=== PATIENT | male | born 1955 | race Caucasian/White ===

== ENCOUNTER 2018-02-11 12:25 | Observation (INO) | payer BC, SELFPAY ==
[2018-02-11] VITALS (11 sets, daily range): BP systolic 145–198; BP diastolic 89–120; PULSE 73–98; RESP 14–20; TEMP 36.7–37.2; O2SAT 92–98; BMI 27.5
--- NOTE | 2018-02-11 | DI.ECHO.S_ITS ---
[place] [facility]---------+ [facility] +---------+ : : [address] : [place] : : : : [id number] : : : : Phone: [phone]+ Echocardiogram Report + + :Name: DEION CLARK Study Date: 02/12/2018 Height: 69 in : :[facility] Weight: 165 lb: : Gender: Male BSA: 1.9 m2 : :: 1955 Age: 62 yrs : :Reason For Study: CHF : : Performed By: Azra Arrieta : :Referring: VERA WILKES : + + Interpretation Summary The left ventricle is normal in size. The ejection fraction is estimated to be 35-40%. There is moderate global hypokinesis of the left ventricle. There is inferior wall severe hypokinesis. Diastolic parameters suggest a pseudonormalization pattern, consistent with probable elevated filling pressures. There is no LV thrombus. The right ventricle is normal size. The right ventricular systolic function is normal. No significant valvular pathology seen. The IVC is of normal diameter and collapses greater than 50% with a sniff. This suggests a low right atrial pressure of 3 mm Hg. There is a small right-sided pleural effusion. There is a moderate left-sided pleural effusion. Procedure: A two-dimensional transthoracic echocardiogram with color flow and Doppler was performed. The study quality was technically adequate. There is no prior echocardiogram noted for this patient. The heart rate ranged between 70-73 bpm during the study. The patient was in normal sinus rhythm during the exam. Left Ventricle: Left ventricular wall thickness is mildly increased. The left ventricle is normal in size. There is no thrombus. The ejection fraction is estimated to be 35-40%. There is moderate global hypokinesis of the left ventricle. There is inferior wall severe hypokinesis. Diastolic parameters suggest a pseudonormalization pattern, consistent with probable elevated filling pressures. Right Ventricle: The right ventricle is normal size. The right ventricular systolic function is normal. Atria: The left atrium is mildly dilated. Right atrial size is normal. There is no Doppler evidence for an interatrial shunt. Mitral Valve: The mitral valve leaflets appear mildly thickened, but open well. There is mild mitral regurgitation. Aortic Valve: The aortic valve opens well. The aortic valve is slightly calcified. The aortic valve is not well visualized. There is no aortic valve stenosis. There is trace aortic regurgitation. Tricuspid Valve: The tricuspid valve is normal. Pulmonary artery pressures cannot be estimated because of the lack of a measurable TR jet velocity. There is mild tricuspid regurgitation. Pulmonic Valve: The pulmonic valve is not well visualized. Great Vessels: The aortic root is normal size. The ascending aorta is normal in size. The aortic arch is normal in size. The pulmonary artery is not well visualized, but is probably normal size. The IVC is of normal diameter and collapses greater than 50% with a sniff. This suggests a low right atrial pressure of 3 mm Hg. Pericardium/ Pleura There is no pericardial effusion. There is a small right-sided pleural effusion. There is a moderate left-sided pleural effusion. MMode/2D Measurements & Calculations LVIDd: 5.2 cm LVOT diam: 2.3 cm LVIDs: 4.1 cm Ao root diam: 3.7 cm FS: 22.2 % asc Aorta Diam: 3.2 cm EPSS: 0.79 cm Ao Arch Diam (distal): 2.5 cm IVSd: 1.2 cm LVPWd: 1.2 cm LV reilly. diameter/BSA (cm/m^2): 2.8 LV sys. diameter/BSA (cm/m^2): 2.1 LA A2 area: 20.3 cm2 RA long axis: 5.0 cm LA A4 area: 26.9 cm2 RA area: 15.1 cm2 LA length (vol): 6.3 cm RA vol: 38.9 ml LA vol: 74.0 ml RA : 20.5 ml/m2 LA vol index: 38.9 ml/m2 IVC diam: 1.8 cm RVD1 (basal): 2.8 cm LVAd ap4: 35.7 cm2 TAPSE: 1.7 cm LVAs ap4: 27.6 cm2 LVLs ap4: 8.4 cm LVAd ap2: 35.8 cm2 LVLd ap2: 8.9 cm LVAs ap2: 27.0 cm2 LVLs ap2: 8.0 cm Doppler Measurements & Calculations Ao V2 max: 123.8 cm/sec LVOT Max Jeromy: 77.3 cm/sec Ao V2 mean: 94.6 cm/sec LV V1 max P.4 mmHg Ao max P.1 mmHg LV V1 VTI: 15.7 cm Ao mean P.8 mmHg JOSHUA(I,D): 2.6 cm2 Ao V2 VTI: 25.2 cm JOSHUA(V,D): 2.6 cm2 sev ratio: 0.62 JOSHUA indexed to BSA (cm^2/m^2): 1.3 MV E max jeromy: 69.3 cm/sec MV A max jeromy: 55.8 cm/sec MV E/A: 1.2 Med Peak E' Jeromy: 3.4 cm/sec E/E' med: 20.6 Lat Peak E' Jeromy: 4.6 cm/sec E/E' lat: 15.0 E/e' average: 17.8 MV dec time: 0.27 sec Reading Physician:CAMILA
--- NOTE | 2018-02-11 13:31 | ED.EXTPRO ---
HPI - Extremity Problem <PRINCE Baker - Last Filed: 02/11/18 21:27> General Chief complaint: Extremity Problem,Nontraumatic Stated complaint: Feet swollen, SOB, eyesight blurred Time Seen by Provider: 02/11/18 13:18 Source: patient Mode of arrival: ambulatory Limitations: no limitations History of Present Illness HPI Narrative: 62-year-old male that has a history of type 2 diabetes and hypertension that is not well controlled and is a nonsmoker here for complaint of swelling to his bilateral extremities over the past few weeks. he states that he has been working nights more recently and is on his feet frequently while he is at work. he states that being off of his feet does help with the swelling. He also reports that he has had periods of having intermittent chest pain over the same timeframe. He denies any cough. He denies any shortness of breath. He denies any stressors or relievers of his chest pain. He is not taking any of his blood pressure medicine or his type 2 diabetes for the last couple years as cost has been an issue for him. he denies any syncope or presyncope. No nausea vomiting. No other concerns or complaints at this time Related Data Home Medications Medication Instructions Recorded Confirmed Vitamin C Gummies 1 dose PO DAILY 02/11/18 02/11/18 ascorbic [id number] 2 packet PO DAILY 02/11/18 02/11/18 [Emergen-C] Allergies Allergy/AdvReac Type Severity Reaction Status Date / Time No Known Drug Allergies Allergy Verified 02/11/18 12:28 Review of Systems <PRINCE Baker - Last Filed: 02/11/18 21:27> Constitutional Denies chills, Denies fatigue, Denies fever(s), Denies lethargy and Denies weakness Eyes Denies change in vision, Denies eye discharge, Denies irritation and Denies loss of vision ENT Ears, Nose, Mouth, and Throat: Denies change in voice, Denies neck pain and Denies sore throat Cardiovascular Reports chest pain, Denies dyspnea and Denies dyspnea on exertion Respiratory Denies cough, Denies dyspnea, Denies dyspnea on exertion and Denies wheezing Gastrointestinal Gastrointestinal: Denies abdominal pain, Denies change in bowel habits, Denies diarrhea, Denies nausea and Denies vomiting Genitourinary Denies hematuria, Denies flank pain, Denies urinary incontinence and Denies urinary urgency Musculoskeletal Denies neck pain Comments: edema to bilateral lower extremities Integumentary/Breasts Denies pruritus, Denies erythema, Denies rash and Denies wounds Neurologic Denies confusion, Denies loss of vision and Denies weakness Psychiatric Denies anxiety, Denies confusion, Denies depression, Denies homicidal ideation and Denies suicidal ideation Endocrine Denies fatigue and Denies flushing Hematologic/Lymphatic Denies easy bruising Allergic/Immunologic Denies wheezing Exam <PRINCE Baker - Last Filed: 02/11/18 21:27> Initial Vital Signs Initial Vital Signs: Vital Signs Temperature 98.0 F 02/11/18 12:28 Pulse Rate 98 H 02/11/18 12:28 Respiratory Rate 16 02/11/18 12:28 Blood Pressure 198/120 H 02/11/18 12:28 Pulse Oximetry 98 02/11/18 12:28 Const General: cooperative and well developed Nutritional Appearance: well nourished Orientation: alert, awake, oriented x3 and not confused HENMO Mouth: oral mucosae normal, oropharynx normal and moist mucous membranes Eyes Conjunctivae: conjunctivae normal Sclera: sclerae normal Pupils: PERRL EOM: EOM intact bilaterally Chest Chest: normal inspection of the chest Resp Effort & Inspection: normal respiratory effort, able to speak in complete sentences, no respiratory distress and no use of accessory muscles Auscultation: clear to auscultation bilaterally, no rales, no rhonchi and no wheezes Cardio Rate: regular rate Rhythm: regular rhythm Heart Sounds: no click, no gallops, no murmurs and no rubs GI Inspection: non-distended Palpation: soft, no hepatosplenomegaly, No guarding, No pulsatile mass and No tender Auscultation: normal bowel sounds Skin General: no rashes or lesions noted, No jaundice and No petechiae Neuro General: alert, oriented x3, gait normal and no focal motor deficits Speech: speech normal Extrem Right lower extremity: edema Details: 1+ Left lower extremity: edema Details: 1+ <Samantha Oliver DO - Last Filed: 02/12/18 07:20> Initial Vital Signs Initial Vital Signs: Vital Signs Temperature 98.0 F 02/11/18 12:28 Pulse Rate 98 H 02/11/18 12:28 Respiratory Rate 16 11/29/18 12:28 Blood Pressure 198/120 H 02/11/18 12:28 Pulse Oximetry 98 02/11/18 12:28 Course <PRINCE Baker - Last Filed: 02/11/18 21:27> Orders Ordered: Acetaminophen (Tylenol) 650 mg PO Q6HR PRN PRN Reason: As Needed for Fever/Mild Pain Hydrocodone Bitart/Acetaminophen ([place] 5/325) 1 tab PO Q4HR PRN PRN Reason: Pain, Moderate (4-6) Dextrose (D50w) 25 gm IV PRN PRN; Protocol PRN Reason: Hypoglycemia Docusate Sodium (Colace) 100 mg PO BID [facility] Last Admin: 02/11/18 20:45 Dose: 100 mg Enoxaparin Sodium (Lovenox) 40 mg SUBCUT DAILY ABA Furosemide (Lasix) 40 mg IV Q12H [facility] Last Admin: 02/11/18 20:46 Dose: 40 mg Hydromorphone HCl (Dilaudid) 0.5 mg IV Q6HR PRN PRN Reason: Pain, Moderate (4-6) Sodium Chloride (Normal Saline 0.9%) 250 mls @ 21 mls/hr IV Q24H PRN PRN Reason: Flush Last Admin: 02/11/18 20:44 Dose: 21 mls/hr Insulin Aspart (Novolog Flexpen) 0 unit SUBCUT ACHS [facility]; Protocol Last Admin: 02/11/18 20:53 Dose: 2 unit Admin: 02/11/18 17:59 Dose: 1 unit Insulin Glargine (Lantus Solostar (Pen)) 10 unit SUBCUT BEDTIME [facility] Last Admin: 02/11/18 20:53 Dose: 10 unit Metoprolol Succinate (Toprol Xl) 50 mg PO BID [facility] Last Admin: 02/11/18 20:45 Dose: 50 mg Ondansetron HCl (Zofran) 4 mg IV Q8HR PRN PRN Reason: Nausea And Vomiting Sodium Chloride (Normal Saline 0.9% Flush) 10 ml IV PRN PRN PRN Reason: Flush Sodium Chloride (Normal Saline 0.9% Flush) 10 ml IV BID [facility] Last Admin: 02/11/18 20:45 Dose: 10 ml Discontinued Medications Furosemide (Lasix) 40 mg IV NOW ONE Stop: 02/11/18 14:34 Last Admin: 02/11/18 14:58 Dose: 40 mg Metoprolol Tartrate (Lopressor) 25 mg PO NOW ONE Stop: 02/11/18 13:52 Last Admin: 02/11/18 14:25 Dose: 25 mg Vital Signs - 8 hr 02/11/18 23:35 02/11/18 23:42 02/12/18 03:00 Temperature 98.3 F 98.2 F Pulse Rate 74 73 Respiratory Rate 20 22 Blood Pressure 148/96 H 155/99 H Pulse Oximetry 92 92 98 <Samantha Oliver, - Last Filed: 02/12/18 07:20> Orders Ordered: Acetaminophen (Tylenol) 650 mg PO Q6HR PRN PRN Reason: As Needed for Fever/Mild Pain Hydrocodone Bitart/Acetaminophen ([place] 5/325) 1 tab PO Q4HR PRN PRN Reason: Pain, Moderate (4-6) Dextrose (D50w) 25 gm IV PRN PRN; Protocol PRN Reason: Hypoglycemia Docusate Sodium (Colace) 100 mg PO BID [facility] Last Admin: 02/11/18 20:45 Dose: 100 mg Enoxaparin Sodium (Lovenox) 40 mg SUBCUT DAILY [facility] Furosemide (Lasix) 40 mg IV Q12H [facility] Last Admin: 02/11/18 20:46 Dose: 40 mg Hydromorphone HCl (Dilaudid) 0.5 mg IV Q6HR PRN PRN Reason: Pain, Moderate (4-6) Sodium Chloride (Normal Saline 0.9%) 250 mls @ 21 mls/hr IV Q24H PRN PRN Reason: Flush Last Admin: 02/11/18 20:44 Dose: 21 mls/hr Insulin Aspart (Novolog Flexpen) 0 unit SUBCUT ACHS [facility]; Protocol Last Admin: 02/11/18 20:53 Dose: 2 unit Admin: 02/11/18 17:59 Dose: 1 unit Insulin Glargine (Lantus Solostar (Pen)) 10 unit SUBCUT BEDTIME [facility] Last Admin: 02/11/18 20:53 Dose: 10 unit Metoprolol Succinate (Toprol Xl) 50 mg PO BID [facility] Last Admin: 02/11/18 20:45 Dose: 50 mg Ondansetron HCl (Zofran) 4 mg IV Q8HR PRN PRN Reason: Nausea And Vomiting Sodium Chloride (Normal Saline 0.9% Flush) 10 ml IV PRN PRN PRN Reason: Flush Sodium Chloride (Normal Saline 0.9% Flush) 10 ml IV BID ABA Last Admin: 02/11/18 20:45 Dose: 10 ml Discontinued Medications Furosemide (Lasix) 40 mg IV NOW ONE Stop: 02/11/18 14:34 Last Admin: 02/11/18 14:58 Dose: 40 mg Metoprolol Tartrate (Lopressor) 25 mg PO NOW ONE Stop: 02/11/18 13:52 Last Admin: 02/11/18 14:25 Dose: 25 mg Vital Signs - 8 hr 02/11/18 23:35 02/11/18 23:42 02/12/18 03:00 Temperature 98.3 F 98.2 F Pulse Rate 74 73 Respiratory Rate 20 22 Blood Pressure 148/96 H 155/99 H Pulse Oximetry 92 92 98 MDM - Extremity (Nontraumatic) <PRINCE Baker - Last Filed: 02/11/18 21:27> Lab Data Result diagrams: 02/11/18 17:37 02/11/18 17:37 Lab Results 02/11/18 02/11/18 02/11/18 Range/Units 13:20 13:20 15:40 WBC 5.8 (4.5-11.0) X10^3/uL RBC 4.15 L (4.5-5.9) X10^6/uL Hgb 11.6 L (13.5-17.5) g/dL Hct 34.1 L (41-53) % MCV 82.2 (80-100) fL MCH 28.0 (26-34) PG MCHC 34.1 (30-36) % RDW 16.4 H (11.6-14.8) % Plt Count 218 (150-400) X10^3/uL Neut % (Auto) 63.3 (50-75) % Lymph % (Auto) 23.7 L (25-40) % [place] % (Auto) 10.4 (3-14) % Eos % (Auto) 1.6 L (2-4) % Baso % (Auto) 1.0 (0-2) % Neut # (Auto) 3700 (4615-8330) /uL Sodium 137 (137-145) mmol/L Potassium 3.6 (3.4-5.1) mmol/L Chloride 102 (98-107) mmol/L Carbon Dioxide 24 (22-32) mmol/L BUN 20 (9-20) mg/dL Creatinine 0.80 (0.66-1.25) mg/dL Estimated GFR > 60.0 (>60) mL/min BUN/Creatinine Ratio 25.0 H (6-22) Glucose 208 H (80-110) mg/dL Hemoglobin A1c (4.0-6.0) % Calcium 8.6 (8.4-10.2) mg/dL Total Bilirubin 0.4 (0.2-1.3) mg/dL AST 77 H (17-59) IU/L ALT 65 (21-72) IU/L Alkaline Phosphatase 110 (38-126) U/L Total Creatine Kinase 117 (55-170) U/L CK-MB (CK-2) 2.37 (<2.37) ng/mL CK-MB (CK-2) Rel Index 2.0 (1.5-5.0) % Troponin I 0.061 H (0.01-0.034) ng/mL B-Natriuretic Peptide 800.0 H (<100) Total Protein 6.6 (6.3-8.2) g/dL Albumin 3.2 L (3.5-5.0) g/dL Globulin 3.4 (1.7-4.1) g/dL Albumin/Globulin Ratio 0.9 L (1.0-2.8) Triglycerides (35-150) mg/dL Cholesterol (140-199) mg/dL LDL Cholesterol, Calc (<100) mg/dL HDL Cholesterol (40-60) mg/dL Lipase 223 (23-300) U/L Urine RBC 1-5/hpf (0-5/HPF) Urine WBC 0-1/hpf (0-5/HPF) Ur Squamous Epith Cells 0-1 /hpf Urine Bacteria None seen (None) Ur Culture Indicated? Cult not indicated Micro UA Comment Not Reportable 02/11/18 02/11/18 02/11/18 Range/Units 17:37 17:37 17:37 WBC 7.5 (4.5-11.0) X10^3/uL RBC 4.26 L (4.5-5.9) X10^6/uL Hgb 11.6 L (13.5-17.5) g/dL Hct 35.2 L (41-53) % MCV 82.7 (80-100) fL MCH 27.3 (26-34) PG MCHC 33.1 (30-36) % RDW 16.4 H (11.6-14.8) % Plt Count 215 (150-400) X10^3/uL Neut % (Auto) 63.7 (50-75) % Lymph % (Auto) 23.3 L (25-40) % [place] % (Auto) 10.8 (3-14) % Eos % (Auto) 1.3 L (2-4) % Baso % (Auto) 0.9 (0-2) % Neut # (Auto) 4800 (9600-5294) /uL Sodium 136 L (137-145) mmol/L Potassium 3.6 (3.4-5.1) mmol/L Chloride 102 (98-107) mmol/L Carbon Dioxide 24 (22-32) mmol/L BUN 19 (9-20) mg/dL Creatinine 0.80 (0.66-1.25) mg/dL Estimated GFR > 60.0 (>60) mL/min BUN/Creatinine Ratio 23.8 H (6-22) Glucose 175 H (80-110) mg/dL Hemoglobin A1c (4.0-6.0) % Calcium 8.5 (8.4-10.2) mg/dL Total Bilirubin (0.2-1.3) mg/dL AST (17-59) IU/L ALT (21-72) IU/L Alkaline Phosphatase (38-126) U/L Total Creatine Kinase (55-170) U/L CK-MB (CK-2) (<2.37) ng/mL CK-MB (CK-2) Rel Index (1.5-5.0) % Troponin I (0.01-0.034) ng/mL B-Natriuretic Peptide (<100) Total Protein (6.3-8.2) g/dL Albumin (3.5-5.0) g/dL Globulin (1.7-4.1) g/dL Albumin/Globulin Ratio (1.0-2.8) Triglycerides 145 (35-150) mg/dL Cholesterol 198 (140-199) mg/dL LDL Cholesterol, Calc 138 H (<100) mg/dL HDL Cholesterol 31 L (40-60) mg/dL Lipase (23-300) U/L Urine RBC (0-5/HPF) Urine WBC (0-5/HPF) Ur Squamous Epith Cells Urine Bacteria (None) Ur Culture Indicated? Micro UA Comment 02/11/18 02/11/18 Range/Units 17:37 17:37 WBC (4.5-11.0) X10^3/uL RBC (4.5-5.9) X10^6/uL Hgb (13.5-17.5) g/dL Hct (41-53) % MCV (80-100) fL MCH (26-34) PG MCHC (30-36) % RDW (11.6-14.8) % Plt Count (150-400) X10^3/uL Neut % (Auto) (50-75) % Lymph % (Auto) (25-40) % [place] % (Auto) (3-14) % Eos % (Auto) (2-4) % Baso % (Auto) (0-2) % Neut # (Auto) (0548-5283) /uL Sodium (137-145) mmol/L Potassium (3.4-5.1) mmol/L Chloride (98-107) mmol/L Carbon Dioxide (22-32) mmol/L BUN (9-20) mg/dL Creatinine (0.66-1.25) mg/dL Estimated GFR (>60) mL/min BUN/Creatinine Ratio (6-22) Glucose (80-110) mg/dL Hemoglobin A1c 10.6 H (4.0-6.0) % Calcium (8.4-10.2) mg/dL Total Bilirubin (0.2-1.3) mg/dL AST (17-59) IU/L ALT (21-72) IU/L Alkaline Phosphatase (38-126) U/L Total Creatine Kinase 112 (55-170) U/L CK-MB (CK-2) 2.50 H (<2.37) ng/mL CK-MB (CK-2) Rel Index 2.2 (1.5-5.0) % Troponin I 0.075 H (0.01-0.034) ng/mL B-Natriuretic Peptide (<100) Total Protein (6.3-8.2) g/dL Albumin (3.5-5.0) g/dL Globulin (1.7-4.1) g/dL Albumin/Globulin Ratio (1.0-2.8) Triglycerides (35-150) mg/dL Cholesterol (140-199) mg/dL LDL Cholesterol, Calc (<100) mg/dL HDL Cholesterol (40-60) mg/dL Lipase (23-300) U/L Urine RBC (0-5/HPF) Urine WBC (0-5/HPF) Ur Squamous Epith Cells Urine Bacteria (None) Ur Culture Indicated? Micro UA Comment Point of Care Testing Glucose POC 118 Urine Dip Bedside Urine Glucose 500 mg/dl Bedside Urine Bilirubin - Negative Bedside Urine Ketone - Negative Urine Specific [place] 1.020 Bedside Urine Occult Blood + Bedside Urine pH 6.0 Bedside Urine Protein ++ 100 Bedside Urine Urobilinogen - Negative Bedside Urine Nitrite - Negative Bedside Urine Leukocytes - Negative Esterase Imaging Data CT scan - head: Radiologist's impression: [place] [address] CT Scan Report Signed Patient: Jose Lewis JMR#: [id number] : 5Acct:[id number] Age/Sex: 62 / MDate of Service: 02/11/18 Loc: ED Accession Number: [id number] Procedure: CT head/brain wo con Ordering Provider: Dwain Clement PROCEDURE: CT HEAD/BRAIN WO CON INDICATIONS: left-sided headache with elevated blood pressure TECHNIQUE: Noncontrast 4.5 mm thick angled axial sections acquired from the foramen magnum to the vertex, with coronal and sagittal reformats. For radiation dose reduction, the following was used: automated exposure control, adjustment of mA and/or kV according to patient size. COMPARISON: None. FINDINGS: Image quality: Excellent. CSF spaces: Basal cisterns are patent. No extra-axial fluid collections. The ventricles are symmetric in size and shape. Brain: No intracranial bleeds or masses. There is cerebral volume loss for age, with resultant ventricular and sulcal prominence. There are periventricular and deep white matter chronic small vessel ischemic changes. There is intracranial internal carotid artery and vertebral artery atherosclerosis. Skull and face: Calvarium and visualized facial bones appear intact, without suspicious lesions. Sinuses: Visualized sinuses and mastoids are clear. IMPRESSION: No acute intracranial disease process. Dictated by: Cherelle Fiore MD, PhD on 02/11/2018 at 14:09 Approved by: Cherelle Fiore MD, PhD on 02/11/2018 at 14:11 Chest x-ray: Radiologist's impression: [address] [address] XRay Report Signed Patient: Jose Lewis JMR#: [id number] : 5Acct:[id number] Age/Sex: 62 / MDate of Service: 02/11/18 Loc: ED Accession Number: [id number] Procedure: XR chest 1V Ordering Provider: Dwain Clement PROCEDURE: XR CHEST 1V INDICATIONS: Swelling to bilateral lower extremities and shortness of b TECHNIQUE: One view of the chest was acquired. COMPARISON: None. FINDINGS: Surgical changes and devices: None. Lungs and pleura: Blunting of the costophrenic angles is identified bilaterally (left greater than right). Interstitial prominence within the bilateral lung bases is also noted. The pulmonary vascular markings may be increased. Mediastinum: Mediastinal contours appear normal. Heart size appears to be normal. Bones and chest wall: No suspicious bony lesions. Overlying soft tissues appear unremarkable. IMPRESSION: 1. Small bilateral pleural effusions and associated atelectasis. Superimposed basilar pneumonia is difficult to exclude. 2. Possible mild vascular congestion. Dictated by: Gennaro Malcolm M.D. on 02/11/2018 at 13:34 Approved by: Gennaro Malcolm M.D. on 02/11/2018 at 13:35 ECG Data Interpretation: EKG shows normal sinus rhythm with no ST elevation or depression. No ectopy. Pr interval of 150. QRS duration 114. QTC of 440 MDM Narrative Medical decision making narrative: due to elevated blood pressure and complaint of headache CT of the head was obtained was negative for any acute findings. EKG shows sinus rhythm with no ST elevation or depression. No ectopy. Chest x-ray shows signs of mild pulmonary congestion. he was given 25 mg of metoprolol which lowered his blood pressure to 169/109. CBC shows mild anemia otherwise is unremarkable. CMP shows a glucose at 208, of you min at 3.2 and mildly elevated AST. BNP was elevated at 800. and troponin was elevated at 0.061 is indeterminate. he was given 40 mg Lasix IV in the emergency room. Discussed case with Dr. Sylvester hospitalist about admission for observation which she accepted patient. Patient admitted to inpatient [facility]. <Samantha Oliver, DO - Last Filed: 02/12/18 07:20> Lab Data Lab Results 02/11/18 02/11/18 02/11/18 Range/Units 13:20 13:20 15:40 WBC 5.8 (4.5-11.0) X10^3/uL RBC 4.15 L (4.5-5.9) X10^6/uL Hgb 11.6 L (13.5-17.5) g/dL Hct 34.1 L (41-53) % MCV 82.2 (80-100) fL MCH 28.0 (26-34) PG MCHC 34.1 (30-36) % RDW 16.4 H (11.6-14.8) % Plt Count 218 (150-400) X10^3/uL Neut % (Auto) 63.3 (50-75) % Lymph % (Auto) 23.7 L (25-40) % [place] % (Auto) 10.4 (3-14) % Eos % (Auto) 1.6 L (2-4) % Baso % (Auto) 1.0 (0-2) % Neut # (Auto) 3700 (1257-9724) /uL Sodium 137 (137-145) mmol/L Potassium 3.6 (3.4-5.1) mmol/L Chloride 102 (98-107) mmol/L Carbon Dioxide 24 (22-32) mmol/L BUN 20 (9-20) mg/dL Creatinine 0.80 (0.66-1.25) mg/dL Estimated GFR > 60.0 (>60) mL/min BUN/Creatinine Ratio 25.0 H (6-22) Glucose 208 H (80-110) mg/dL Hemoglobin A1c (4.0-6.0) % Calcium 8.6 (8.4-10.2) mg/dL Total Bilirubin 0.4 (0.2-1.3) mg/dL AST 77 H (17-59) IU/L ALT 65 (21-72) IU/L Alkaline Phosphatase 110 (38-126) U/L Total Creatine Kinase 117 (55-170) U/L CK-MB (CK-2) 2.37 (<2.37) ng/mL CK-MB (CK-2) Rel Index 2.0 (1.5-5.0) % Troponin I 0.061 H (0.01-0.034) ng/mL B-Natriuretic Peptide 800.0 H (<100) Total Protein 6.6 (6.3-8.2) g/dL Albumin 3.2 L (3.5-5.0) g/dL Globulin 3.4 (1.7-4.1) g/dL Albumin/Globulin Ratio 0.9 L (1.0-2.8) Triglycerides (35-150) mg/dL Cholesterol (140-199) mg/dL LDL Cholesterol, Calc (<100) mg/dL HDL Cholesterol (40-60) mg/dL Lipase 223 (23-300) U/L Urine RBC 1-5/hpf (0-5/HPF) Urine WBC 0-1/hpf (0-5/HPF) Ur Squamous Epith Cells 0-1 /hpf Urine Bacteria None seen (None) Ur Culture Indicated? Cult not indicated Micro UA Comment Not Reportable 02/11/18 02/11/18 02/11/18 Range/Units 17:37 17:37 17:37 WBC 7.5 (4.5-11.0) X10^3/uL RBC 4.26 L (4.5-5.9) X10^6/uL Hgb 11.6 L (13.5-17.5) g/dL Hct 35.2 L (41-53) % MCV 82.7 (80-100) fL MCH 27.3 (26-34) PG MCHC 33.1 (30-36) % RDW 16.4 H (11.6-14.8) % Plt Count 215 (150-400) X10^3/uL Neut % (Auto) 63.7 (50-75) % Lymph % (Auto) 23.3 L (25-40) % [place] % (Auto) 10.8 (3-14) % Eos % (Auto) 1.3 L (2-4) % Baso % (Auto) 0.9 (0-2) % Neut # (Auto) 4800 (6234-7076) /uL Sodium 136 L (137-145) mmol/L Potassium 3.6 (3.4-5.1) mmol/L Chloride 102 (98-107) mmol/L Carbon Dioxide 24 (22-32) mmol/L BUN 19 (9-20) mg/dL Creatinine 0.80 (0.66-1.25) mg/dL Estimated GFR > 60.0 (>60) mL/min BUN/Creatinine Ratio 23.8 H (6-22) Glucose 175 H (80-110) mg/dL Hemoglobin A1c (4.0-6.0) % Calcium 8.5 (8.4-10.2) mg/dL Total Bilirubin (0.2-1.3) mg/dL AST (17-59) IU/L ALT (21-72) IU/L Alkaline Phosphatase (38-126) U/L Total Creatine Kinase (55-170) U/L CK-MB (CK-2) (<2.37) ng/mL CK-MB (CK-2) Rel Index (1.5-5.0) % Troponin I (0.01-0.034) ng/mL B-Natriuretic Peptide (<100) Total Protein (6.3-8.2) g/dL Albumin (3.5-5.0) g/dL Globulin (1.7-4.1) g/dL Albumin/Globulin Ratio (1.0-2.8) Triglycerides 145 (35-150) mg/dL Cholesterol 198 (140-199) mg/dL LDL Cholesterol, Calc 138 H (<100) mg/dL HDL Cholesterol 31 L (40-60) mg/dL Lipase (23-300) U/L Urine RBC (0-5/HPF) Urine WBC (0-5/HPF) Ur Squamous Epith Cells Urine Bacteria (None) Ur Culture Indicated? Micro UA Comment 02/11/18 02/11/18 Range/Units 17:37 17:37 WBC (4.5-11.0) X10^3/uL RBC (4.5-5.9) X10^6/uL Hgb (13.5-17.5) g/dL Hct (41-53) % MCV (80-100) fL MCH (26-34) PG MCHC (30-36) % RDW (11.6-14.8) % Plt Count (150-400) X10^3/uL Neut % (Auto) (50-75) % Lymph % (Auto) (25-40) % [place] % (Auto) (3-14) % Eos % (Auto) (2-4) % Baso % (Auto) (0-2) % Neut # (Auto) (8590-6891) /uL Sodium (137-145) mmol/L Potassium (3.4-5.1) mmol/L Chloride (98-107) mmol/L Carbon Dioxide (22-32) mmol/L BUN (9-20) mg/dL Creatinine (0.66-1.25) mg/dL Estimated GFR (>60) mL/min BUN/Creatinine Ratio (6-22) Glucose (80-110) mg/dL Hemoglobin A1c 10.6 H (4.0-6.0) % Calcium (8.4-10.2) mg/dL Total Bilirubin (0.2-1.3) mg/dL AST (17-59) IU/L ALT (21-72) IU/L Alkaline Phosphatase (38-126) U/L Total Creatine Kinase 112 (55-170) U/L CK-MB (CK-2) 2.50 H (<2.37) ng/mL CK-MB (CK-2) Rel Index 2.2 (1.5-5.0) % Troponin I 0.075 H (0.01-0.034) ng/mL B-Natriuretic Peptide (<100) Total Protein (6.3-8.2) g/dL Albumin (3.5-5.0) g/dL Globulin (1.7-4.1) g/dL Albumin/Globulin Ratio (1.0-2.8) Triglycerides (35-150) mg/dL Cholesterol (140-199) mg/dL LDL Cholesterol, Calc (<100) mg/dL HDL Cholesterol (40-60) mg/dL Lipase (23-300) U/L Urine RBC (0-5/HPF) Urine WBC (0-5/HPF) Ur Squamous Epith Cells Urine Bacteria (None) Ur Culture Indicated? Micro UA Comment Point of Care Testing Glucose POC 118 Urine Dip Bedside Urine Glucose 500 mg/dl Bedside Urine Bilirubin - Negative Bedside Urine Ketone - Negative Urine Specific [place] 1.020 Bedside Urine Occult Blood + Bedside Urine pH 6.0 Bedside Urine Protein ++ 100 Bedside Urine Urobilinogen - Negative Bedside Urine Nitrite - Negative Bedside Urine Leukocytes - Negative Esterase Discharge Plan Departure Patient Disposition: Admitted As Inpatient Clinical Impression: CHF (congestive heart failure) Discharge Date/Time: 02/11/18 16:57 Interventions: ED Discharge Assessment Last Done: 02/11/18 16:46 Admit Date/Time: 02/11/18 15:40 Admit Provider: Penny Sylvester <Samantha Oliver DO - Last Filed: 02/12/18 07:20> Cosign ED Attending Cosignature Attestation: I was immediately available in the department for consultation. This documentation has been reviewed and I agree with assessment and plan. Supervised by Samantha Oliver DO
--- NOTE | 2018-02-11 13:44 | DI.RAD.S_ITS ---
PROCEDURE: XR CHEST 1V INDICATIONS: Swelling to bilateral lower extremities and shortness of b TECHNIQUE: One view of the chest was acquired. COMPARISON: None. FINDINGS: Surgical changes and devices: None. Lungs and pleura: Blunting of the costophrenic angles is identified bilaterally (left greater than right). Interstitial prominence within the bilateral lung bases is also noted. The pulmonary vascular markings may be increased. Mediastinum: Mediastinal contours appear normal. Heart size appears to be normal. Bones and chest wall: No suspicious bony lesions. Overlying soft tissues appear unremarkable. IMPRESSION: 1. Small bilateral pleural effusions and associated atelectasis. Superimposed basilar pneumonia is difficult to exclude. 2. Possible mild vascular congestion. Dictated by: Gennaro Malcolm M.D. on 02/11/2018 at 13:34 Approved by: Gennaro Malcolm M.D. on 02/11/2018 at 13:35
--- NOTE | 2018-02-11 13:44 | DI.CT.S_ITS ---
PROCEDURE: CT HEAD/BRAIN WO CON INDICATIONS: left-sided headache with elevated blood pressure TECHNIQUE: Noncontrast 4.5 mm thick angled axial sections acquired from the foramen magnum to the vertex, with coronal and sagittal reformats. For radiation dose reduction, the following was used: automated exposure control, adjustment of mA and/or kV according to patient size. COMPARISON: None. FINDINGS: Image quality: Excellent. CSF spaces: Basal cisterns are patent. No extra-axial fluid collections. The ventricles are symmetric in size and shape. Brain: No intracranial bleeds or masses. There is cerebral volume loss for age, with resultant ventricular and sulcal prominence. There are periventricular and deep white matter chronic small vessel ischemic changes. There is intracranial internal carotid artery and vertebral artery atherosclerosis. Skull and face: Calvarium and visualized facial bones appear intact, without suspicious lesions. Sinuses: Visualized sinuses and mastoids are clear. IMPRESSION: No acute intracranial disease process. Dictated by: Cherelle Fiore MD, PhD on 02/11/2018 at 14:09 Approved by: Cherelle Fiore MD, PhD on 02/11/2018 at 14:11
--- NOTE | 2018-02-11 13:48 | PC.NURSE ---
pt reports at times he feels SOB, eyes blurry at times. reports that he doesn't take his diabetic medication due to the cost of it. reports he does not check his blood sugar.
[2018-02-11 13:53] LABS: Add Manual Diff / Slide Review NO; Eosinophils Percent Auto 1.6 % (2-4); Hematocrit 34.1 % (41-53); Hemoglobin 11.6 g/dL (13.5-17.5); Lymphocytes Percent Auto 23.7 % (25-40); Mean Corpuscular HGB Conc 34.1 % (30-36); Mean Corpuscular Volume 82.2 fL (80-100); Monocytes Percent Auto 10.4 % (3-14); Neutrophils Absolute Auto 3700 /uL (3000-5900); Neutrophils Percent Auto 63.3 % (50-75); Platelet Count 218 X10^3/uL (150-400); Red Blood Cell Count 4.15 X10^6/uL (4.5-5.9); Red Cell Distribution Width 16.4 % (11.6-14.8); White Blood Cell Count 5.8 X10^3/uL (4.5-11.0)
[2018-02-11 14:00] LABS: Alanine Aminotransferase 65 IU/L (21-72); Albumin 3.2 g/dL (3.5-5.0); Albumin Globulin Ratio 0.9 (1.0-2.8); Alkaline Phosphatase 110 U/L (38-126); Aspartate Aminotransferase 77 IU/L (17-59); Bilirubin Total 0.4 mg/dL (0.2-1.3); Blood Urea Nitrogen 20 mg/dL (9-20); Calcium 8.6 mg/dL (8.4-10.2); Carbon Dioxide 24 mmol/L (22-32); Chloride 102 mmol/L (98-107); Creatine Kinase 117 U/L (55-170); Estimated Glomerular Filt Rate > 60.0 mL/min (>60); Globulin 3.4 g/dL (1.7-4.1); Glucose 208 mg/dL (80-110); HEMOLYSIS < 15 (0-50); Lipase 223 U/L (23-300); Potassium 3.6 mmol/L (3.4-5.1); Sodium 137 mmol/L (137-145); Total Protein 6.6 g/dL (6.3-8.2)
[2018-02-11 14:11] LABS: Troponin I 0.061 ng/mL (0.01-0.034)
[2018-02-11 14:15] LABS: Creatine Kinase MB 2.37 ng/mL (<2.37)
[2018-02-11] MEDS: METOPROLOL IR 25 MG TABLET PO (14:25)
[2018-02-11] MEDS: FUROSEMIDE 40 MG/4 ML VIAL IV ×2 (14:58→20:46)
--- NOTE | 2018-02-11 15:30 | ED_ITS ---
HPI - Extremity Problem <PRINCE Baker - Last Filed: 02/11/18 21:27> General Chief complaint: Extremity Problem,Nontraumatic Stated complaint: Feet swollen, SOB, eyesight blurred Time Seen by Provider: 02/11/18 13:18 Source: patient Mode of arrival: ambulatory Limitations: no limitations History of Present Illness HPI Narrative: 62-year-old male that has a history of type 2 diabetes and hypertension that is not well controlled and is a nonsmoker here for complaint of swelling to his bilateral extremities over the past few weeks. he states that he has been working nights more recently and is on his feet frequently while he is at work. he states that being off of his feet does help with the swelling. He also reports that he has had periods of having intermittent chest pain over the same timeframe. He denies any cough. He denies any shortness of breath. He denies any stressors or relievers of his chest pain. He is not taking any of his blood pressure medicine or his type 2 diabetes for the last couple years as cost has been an issue for him. he denies any syncope or presyncope. No nausea vomiting. No other concerns or complaints at this time Related Data Home Medications Medication Instructions Recorded Confirmed Vitamin C Gummies 1 dose PO DAILY 02/11/18 02/11/18 ascorbic [id number] 2 packet PO DAILY 02/11/18 02/11/18 [Emergen-C] Allergies Allergy/AdvReac Type Severity Reaction Status Date / Time No Known Drug Allergies Allergy Verified 02/11/18 12:28 Review of Systems <PRINCE Baker - Last Filed: 02/11/18 21:27> Constitutional Denies chills, Denies fatigue, Denies fever(s), Denies lethargy and Denies weakness Eyes Denies change in vision, Denies eye discharge, Denies irritation and Denies loss of vision ENT Ears, Nose, Mouth, and Throat: Denies change in voice, Denies neck pain and Denies sore throat Cardiovascular Reports chest pain, Denies dyspnea and Denies dyspnea on exertion Respiratory Denies cough, Denies dyspnea, Denies dyspnea on exertion and Denies wheezing Gastrointestinal Gastrointestinal: Denies abdominal pain, Denies change in bowel habits, Denies diarrhea, Denies nausea and Denies vomiting Genitourinary Denies hematuria, Denies flank pain, Denies urinary incontinence and Denies urinary urgency Musculoskeletal Denies neck pain Comments: edema to bilateral lower extremities Integumentary/Breasts Denies pruritus, Denies erythema, Denies rash and Denies wounds Neurologic Denies confusion, Denies loss of vision and Denies weakness Psychiatric Denies anxiety, Denies confusion, Denies depression, Denies homicidal ideation and Denies suicidal ideation Endocrine Denies fatigue and Denies flushing Hematologic/Lymphatic Denies easy bruising Allergic/Immunologic Denies wheezing Exam <PRINCE Baker - Last Filed: 02/11/18 21:27> Initial Vital Signs Initial Vital Signs: Vital Signs Temperature 98.0 F 02/11/18 12:28 Pulse Rate 98 H 02/11/18 12:28 Respiratory Rate 16 02/11/18 12:28 Blood Pressure 198/120 H 02/11/18 12:28 Pulse Oximetry 98 02/11/18 12:28 Const General: cooperative and well developed Nutritional Appearance: well nourished Orientation: alert, awake, oriented x3 and not confused HENMA Mouth: oral mucosae normal, oropharynx normal and moist mucous membranes Eyes Conjunctivae: conjunctivae normal Sclera: sclerae normal Pupils: PERRL EOM: EOM intact bilaterally Chest Chest: normal inspection of the chest Resp Effort & Inspection: normal respiratory effort, able to speak in complete sentences, no respiratory distress and no use of accessory muscles Auscultation: clear to auscultation bilaterally, no rales, no rhonchi and no wheezes Cardio Rate: regular rate Rhythm: regular rhythm Heart Sounds: no click, no gallops, no murmurs and no rubs GI Inspection: non-distended Palpation: soft, no hepatosplenomegaly, No guarding, No pulsatile mass and No tender Auscultation: normal bowel sounds Skin General: no rashes or lesions noted, No jaundice and No petechiae Neuro General: alert, oriented x3, gait normal and no focal motor deficits Speech: speech normal Extrem Right lower extremity: edema Details: 1+ Left lower extremity: edema Details: 1+ <Samantha Oliver DO - Last Filed: 02/12/18 07:20> Initial Vital Signs Initial Vital Signs: Vital Signs Temperature 98.0 F 02/11/18 12:28 Pulse Rate 98 H 02/11/18 12:28 Respiratory Rate 16 11/29/18 12:28 Blood Pressure 198/120 H 02/11/18 12:28 Pulse Oximetry 98 02/11/18 12:28 Course <PRINCE Baker - Last Filed: 02/11/18 21:27> Orders Ordered: Acetaminophen (Tylenol) 650 mg PO Q6HR PRN PRN Reason: As Needed for Fever/Mild Pain Hydrocodone Bitart/Acetaminophen ([place] 5/325) 1 tab PO Q4HR PRN PRN Reason: Pain, Moderate (4-6) Dextrose (D50w) 25 gm IV PRN PRN; Protocol PRN Reason: Hypoglycemia Docusate Sodium (Colace) 100 mg PO BID [facility] Last Admin: 02/11/18 20:45 Dose: 100 mg Enoxaparin Sodium (Lovenox) 40 mg SUBCUT DAILY [facility] Furosemide (Lasix) 40 mg IV Q12H [facility] Last Admin: 02/11/18 20:46 Dose: 40 mg Hydromorphone HCl (Dilaudid) 0.5 mg IV Q6HR PRN PRN Reason: Pain, Moderate (4-6) Sodium Chloride (Normal Saline 0.9%) 250 mls @ 21 mls/hr IV Q24H PRN PRN Reason: Flush Last Admin: 02/11/18 20:44 Dose: 21 mls/hr Insulin Aspart (Novolog Flexpen) 0 unit SUBCUT ACHS [facility]; Protocol Last Admin: 02/11/18 20:53 Dose: 2 unit Admin: 02/11/18 17:59 Dose: 1 unit Insulin Glargine (Lantus Solostar (Pen)) 10 unit SUBCUT BEDTIME [facility] Last Admin: 02/11/18 20:53 Dose: 10 unit Metoprolol Succinate (Toprol Xl) 50 mg PO BID [facility] Last Admin: 02/11/18 20:45 Dose: 50 mg Ondansetron HCl (Zofran) 4 mg IV Q8HR PRN PRN Reason: Nausea And Vomiting Sodium Chloride (Normal Saline 0.9% Flush) 10 ml IV PRN PRN PRN Reason: Flush Sodium Chloride (Normal Saline 0.9% Flush) 10 ml IV BID [facility] Last Admin: 02/11/18 20:45 Dose: 10 ml Discontinued Medications Furosemide (Lasix) 40 mg IV NOW ONE Stop: 02/11/18 14:34 Last Admin: 02/11/18 14:58 Dose: 40 mg Metoprolol Tartrate (Lopressor) 25 mg PO NOW ONE Stop: 02/11/18 13:52 Last Admin: 02/11/18 14:25 Dose: 25 mg Vital Signs - 8 hr 02/11/18 23:35 02/11/18 23:42 02/12/18 03:00 Temperature 98.3 F 98.2 F Pulse Rate 74 73 Respiratory Rate 20 22 Blood Pressure 148/96 H 155/99 H Pulse Oximetry 92 92 98 <Samantha Oliver, - Last Filed: 02/12/18 07:20> Orders Ordered: Acetaminophen (Tylenol) 650 mg PO Q6HR PRN PRN Reason: As Needed for Fever/Mild Pain Hydrocodone Bitart/Acetaminophen ([place] 5/325) 1 tab PO Q4HR PRN PRN Reason: Pain, Moderate (4-6) Dextrose (D50w) 25 gm IV PRN PRN; Protocol PRN Reason: Hypoglycemia Docusate Sodium (Colace) 100 mg PO BID [facility] Last Admin: 02/11/18 20:45 Dose: 100 mg Enoxaparin Sodium (Lovenox) 40 mg SUBCUT DAILY [facility] Furosemide (Lasix) 40 mg IV Q12H [facility] Last Admin: 02/11/18 20:46 Dose: 40 mg Hydromorphone HCl (Dilaudid) 0.5 mg IV Q6HR PRN PRN Reason: Pain, Moderate (4-6) Sodium Chloride (Normal Saline 0.9%) 250 mls @ 21 mls/hr IV Q24H PRN PRN Reason: Flush Last Admin: 02/11/18 20:44 Dose: 21 mls/hr Insulin Aspart (Novolog Flexpen) 0 unit SUBCUT ACHS [facility]; Protocol Last Admin: 02/11/18 20:53 Dose: 2 unit Admin: 02/11/18 17:59 Dose: 1 unit Insulin Glargine (Lantus Solostar (Pen)) 10 unit SUBCUT BEDTIME [facility] Last Admin: 02/11/18 20:53 Dose: 10 unit Metoprolol Succinate (Toprol Xl) 50 mg PO BID [facility] Last Admin: 02/11/18 20:45 Dose: 50 mg Ondansetron HCl (Zofran) 4 mg IV Q8HR PRN PRN Reason: Nausea And Vomiting Sodium Chloride (Normal Saline 0.9% Flush) 10 ml IV PRN PRN PRN Reason: Flush Sodium Chloride (Normal Saline 0.9% Flush) 10 ml IV BID [facility] Last Admin: 02/11/18 20:45 Dose: 10 ml Discontinued Medications Furosemide (Lasix) 40 mg IV NOW ONE Stop: 02/11/18 14:34 Last Admin: 02/11/18 14:58 Dose: 40 mg Metoprolol Tartrate (Lopressor) 25 mg PO NOW ONE Stop: 02/11/18 13:52 Last Admin: 02/11/18 14:25 Dose: 25 mg Vital Signs - 8 hr 02/11/18 23:35 02/11/18 23:42 02/12/18 03:00 Temperature 98.3 F 98.2 F Pulse Rate 74 73 Respiratory Rate 20 22 Blood Pressure 148/96 H 155/99 H Pulse Oximetry 92 92 98 MDM - Extremity (Nontraumatic) <PRINCE Baker - Last Filed: 02/11/18 21:27> Lab Data Result diagrams: 02/11/18 17:37 02/11/18 17:37 Lab Results 02/11/18 02/11/18 02/11/18 Range/Units 13:20 13:20 15:40 WBC 5.8 (4.5-11.0) X10^3/uL RBC 4.15 L (4.5-5.9) X10^6/uL Hgb 11.6 L (13.5-17.5) g/dL Hct 34.1 L (41-53) % MCV 82.2 (80-100) fL MCH 28.0 (26-34) PG MCHC 34.1 (30-36) % RDW 16.4 H (11.6-14.8) % Plt Count 218 (150-400) X10^3/uL Neut % (Auto) 63.3 (50-75) % Lymph % (Auto) 23.7 L (25-40) % [place] % (Auto) 10.4 (3-14) % Eos % (Auto) 1.6 L (2-4) % Baso % (Auto) 1.0 (0-2) % Neut # (Auto) 3700 (2991-6365) /uL Sodium 137 (137-145) mmol/L Potassium 3.6 (3.4-5.1) mmol/L Chloride 102 (98-107) mmol/L Carbon Dioxide 24 (22-32) mmol/L BUN 20 (9-20) mg/dL Creatinine 0.80 (0.66-1.25) mg/dL Estimated GFR > 60.0 (>60) mL/min BUN/Creatinine Ratio 25.0 H (6-22) Glucose 208 H (80-110) mg/dL Hemoglobin A1c (4.0-6.0) % Calcium 8.6 (8.4-10.2) mg/dL Total Bilirubin 0.4 (0.2-1.3) mg/dL AST 77 H (17-59) IU/L ALT 65 (21-72) IU/L Alkaline Phosphatase 110 (38-126) U/L Total Creatine Kinase 117 (55-170) U/L CK-MB (CK-2) 2.37 (<2.37) ng/mL CK-MB (CK-2) Rel Index 2.0 (1.5-5.0) % Troponin I 0.061 H (0.01-0.034) ng/mL B-Natriuretic Peptide 800.0 H (<100) Total Protein 6.6 (6.3-8.2) g/dL Albumin 3.2 L (3.5-5.0) g/dL Globulin 3.4 (1.7-4.1) g/dL Albumin/Globulin Ratio 0.9 L (1.0-2.8) Triglycerides (35-150) mg/dL Cholesterol (140-199) mg/dL LDL Cholesterol, Calc (<100) mg/dL HDL Cholesterol (40-60) mg/dL Lipase 223 (23-300) U/L Urine RBC 1-5/hpf (0-5/HPF) Urine WBC 0-1/hpf (0-5/HPF) Ur Squamous Epith Cells 0-1 /hpf Urine Bacteria None seen (None) Ur Culture Indicated? Cult not indicated Micro UA Comment Not Reportable 02/11/18 02/11/18 02/11/18 Range/Units 17:37 17:37 17:37 WBC 7.5 (4.5-11.0) X10^3/uL RBC 4.26 L (4.5-5.9) X10^6/uL Hgb 11.6 L (13.5-17.5) g/dL Hct 35.2 L (41-53) % MCV 82.7 (80-100) fL MCH 27.3 (26-34) PG MCHC 33.1 (30-36) % RDW 16.4 H (11.6-14.8) % Plt Count 215 (150-400) X10^3/uL Neut % (Auto) 63.7 (50-75) % Lymph % (Auto) 23.3 L (25-40) % [place] % (Auto) 10.8 (3-14) % Eos % (Auto) 1.3 L (2-4) % Baso % (Auto) 0.9 (0-2) % Neut # (Auto) 4800 (8111-9823) /uL Sodium 136 L (137-145) mmol/L Potassium 3.6 (3.4-5.1) mmol/L Chloride 102 (98-107) mmol/L Carbon Dioxide 24 (22-32) mmol/L BUN 19 (9-20) mg/dL Creatinine 0.80 (0.66-1.25) mg/dL Estimated GFR > 60.0 (>60) mL/min BUN/Creatinine Ratio 23.8 H (6-22) Glucose 175 H (80-110) mg/dL Hemoglobin A1c (4.0-6.0) % Calcium 8.5 (8.4-10.2) mg/dL Total Bilirubin (0.2-1.3) mg/dL AST (17-59) IU/L ALT (21-72) IU/L Alkaline Phosphatase (38-126) U/L Total Creatine Kinase (55-170) U/L CK-MB (CK-2) (<2.37) ng/mL CK-MB (CK-2) Rel Index (1.5-5.0) % Troponin I (0.01-0.034) ng/mL B-Natriuretic Peptide (<100) Total Protein (6.3-8.2) g/dL Albumin (3.5-5.0) g/dL Globulin (1.7-4.1) g/dL Albumin/Globulin Ratio (1.0-2.8) Triglycerides 145 (35-150) mg/dL Cholesterol 198 (140-199) mg/dL LDL Cholesterol, Calc 138 H (<100) mg/dL HDL Cholesterol 31 L (40-60) mg/dL Lipase (23-300) U/L Urine RBC (0-5/HPF) Urine WBC (0-5/HPF) Ur Squamous Epith Cells Urine Bacteria (None) Ur Culture Indicated? Micro UA Comment 02/11/18 02/11/18 Range/Units 17:37 17:37 WBC (4.5-11.0) X10^3/uL RBC (4.5-5.9) X10^6/uL Hgb (13.5-17.5) g/dL Hct (41-53) % MCV (80-100) fL MCH (26-34) PG MCHC (30-36) % RDW (11.6-14.8) % Plt Count (150-400) X10^3/uL Neut % (Auto) (50-75) % Lymph % (Auto) (25-40) % [place] % (Auto) (3-14) % Eos % (Auto) (2-4) % Baso % (Auto) (0-2) % Neut # (Auto) (4097-3478) /uL Sodium (137-145) mmol/L Potassium (3.4-5.1) mmol/L Chloride (98-107) mmol/L Carbon Dioxide (22-32) mmol/L BUN (9-20) mg/dL Creatinine (0.66-1.25) mg/dL Estimated GFR (>60) mL/min BUN/Creatinine Ratio (6-22) Glucose (80-110) mg/dL Hemoglobin A1c 10.6 H (4.0-6.0) % Calcium (8.4-10.2) mg/dL Total Bilirubin (0.2-1.3) mg/dL AST (17-59) IU/L ALT (21-72) IU/L Alkaline Phosphatase (38-126) U/L Total Creatine Kinase 112 (55-170) U/L CK-MB (CK-2) 2.50 H (<2.37) ng/mL CK-MB (CK-2) Rel Index 2.2 (1.5-5.0) % Troponin I 0.075 H (0.01-0.034) ng/mL B-Natriuretic Peptide (<100) Total Protein (6.3-8.2) g/dL Albumin (3.5-5.0) g/dL Globulin (1.7-4.1) g/dL Albumin/Globulin Ratio (1.0-2.8) Triglycerides (35-150) mg/dL Cholesterol (140-199) mg/dL LDL Cholesterol, Calc (<100) mg/dL HDL Cholesterol (40-60) mg/dL Lipase (23-300) U/L Urine RBC (0-5/HPF) Urine WBC (0-5/HPF) Ur Squamous Epith Cells Urine Bacteria (None) Ur Culture Indicated? Micro UA Comment Point of Care Testing Glucose POC 118 Urine Dip Bedside Urine Glucose 500 mg/dl Bedside Urine Bilirubin - Negative Bedside Urine Ketone - Negative Urine Specific Paden 1.020 Bedside Urine Occult Blood + Bedside Urine pH 6.0 Bedside Urine Protein ++ 100 Bedside Urine Urobilinogen - Negative Bedside Urine Nitrite - Negative Bedside Urine Leukocytes - Negative Esterase Imaging Data CT scan - head: Radiologist's impression: [place] [address] CT Scan Report Signed Patient: Jose Lewis JMR#: [id number] : 5Acct:[id number] Age/Sex: 62 / MDate of Service: 02/11/18 Loc: ED Accession Number: [id number] Procedure: CT head/brain wo con Ordering Provider: Dwain Clement PROCEDURE: CT HEAD/BRAIN WO CON INDICATIONS: left-sided headache with elevated blood pressure TECHNIQUE: Noncontrast 4.5 mm thick angled axial sections acquired from the foramen magnum to the vertex, with coronal and sagittal reformats. For radiation dose reduction, the following was used: automated exposure control, adjustment of mA and/or kV according to patient size. COMPARISON: None. FINDINGS: Image quality: Excellent. CSF spaces: Basal cisterns are patent. No extra-axial fluid collections. The ventricles are symmetric in size and shape. Brain: No intracranial bleeds or masses. There is cerebral volume loss for age , with resultant ventricular and sulcal prominence. There are periventricular and deep white matter chronic small vessel ischemic changes. There is intracranial internal carotid artery and vertebral artery atherosclerosis. Skull and face: Calvarium and visualized facial bones appear intact, without suspicious lesions. Sinuses: Visualized sinuses and mastoids are clear. IMPRESSION: No acute intracranial disease process. Dictated by: Cherelle Fiore MD, PhD on 02/11/2018 at 14:09 Approved by: Cherelle Fiore MD, PhD on 02/11/2018 at 14:11 Chest x-ray: Radiologist's impression: [address] [address] XRay Report Signed Patient: Jose Lewis JMR#: [id number] : 5Acct:[id number] Age/Sex: 62 / MDate of Service: 02/11/18 Loc: ED Accession Number: [id number] Procedure: XR chest 1V Ordering Provider: Dwain Clement PROCEDURE: XR CHEST 1V INDICATIONS: Swelling to bilateral lower extremities and shortness of b TECHNIQUE: One view of the chest was acquired. COMPARISON: None. FINDINGS: Surgical changes and devices: None. Lungs and pleura: Blunting of the costophrenic angles is identified bilaterally (left greater than right). Interstitial prominence within the bilateral lung bases is also noted. The pulmonary vascular markings may be increased. Mediastinum: Mediastinal contours appear normal. Heart size appears to be normal. Bones and chest wall: No suspicious bony lesions. Overlying soft tissues appear unremarkable. IMPRESSION: 1. Small bilateral pleural effusions and associated atelectasis. Superimposed basilar pneumonia is difficult to exclude. 2. Possible mild vascular congestion. Dictated by: Gennaro Malcolm M.D. on 02/11/2018 at 13:34 Approved by: Gennaro Malcolm M.D. on 02/11/2018 at 13:35 ECG Data Interpretation: EKG shows normal sinus rhythm with no ST elevation or depression. No ectopy. Pr interval of 150. QRS duration 114. QTC of 440 MDM Narrative Medical decision making narrative: due to elevated blood pressure and complaint of headache CT of the head was obtained was negative for any acute findings. EKG shows sinus rhythm with no ST elevation or depression. No ectopy. Chest x-ray shows signs of mild pulmonary congestion. he was given 25 mg of metoprolol which lowered his blood pressure to 169/109. CBC shows mild anemia otherwise is unremarkable. CMP shows a glucose at 208, of you min at 3.2 and mildly elevated AST. BNP was elevated at 800. and troponin was elevated at 0.061 is indeterminate. he was given 40 mg Lasix IV in the emergency room. Discussed case with Dr. Sylvester hospitalist about admission for observation which she accepted patient. Patient admitted to inpatient [facility]. <Samantha Oliver, DO - Last Filed: 02/12/18 07:20> Lab Data Lab Results 02/11/18 02/11/18 02/11/18 Range/Units 13:20 13:20 15:40 WBC 5.8 (4.5-11.0) X10^3/uL RBC 4.15 L (4.5-5.9) X10^6/uL Hgb 11.6 L (13.5-17.5) g/dL Hct 34.1 L (41-53) % MCV 82.2 (80-100) fL MCH 28.0 (26-34) PG MCHC 34.1 (30-36) % RDW 16.4 H (11.6-14.8) % Plt Count 218 (150-400) X10^3/uL Neut % (Auto) 63.3 (50-75) % Lymph % (Auto) 23.7 L (25-40) % [place] % (Auto) 10.4 (3-14) % Eos % (Auto) 1.6 L (2-4) % Baso % (Auto) 1.0 (0-2) % Neut # (Auto) 3700 (1170-3956) /uL Sodium 137 (137-145) mmol/L Potassium 3.6 (3.4-5.1) mmol/L Chloride 102 (98-107) mmol/L Carbon Dioxide 24 (22-32) mmol/L BUN 20 (9-20) mg/dL Creatinine 0.80 (0.66-1.25) mg/dL Estimated GFR > 60.0 (>60) mL/min BUN/Creatinine Ratio 25.0 H (6-22) Glucose 208 H (80-110) mg/dL Hemoglobin A1c (4.0-6.0) % Calcium 8.6 (8.4-10.2) mg/dL Total Bilirubin 0.4 (0.2-1.3) mg/dL AST 77 H (17-59) IU/L ALT 65 (21-72) IU/L Alkaline Phosphatase 110 (38-126) U/L Total Creatine Kinase 117 (55-170) U/L CK-MB (CK-2) 2.37 (<2.37) ng/mL CK-MB (CK-2) Rel Index 2.0 (1.5-5.0) % Troponin I 0.061 H (0.01-0.034) ng/mL B-Natriuretic Peptide 800.0 H (<100) Total Protein 6.6 (6.3-8.2) g/dL Albumin 3.2 L (3.5-5.0) g/dL Globulin 3.4 (1.7-4.1) g/dL Albumin/Globulin Ratio 0.9 L (1.0-2.8) Triglycerides (35-150) mg/dL Cholesterol (140-199) mg/dL LDL Cholesterol, Calc (<100) mg/dL HDL Cholesterol (40-60) mg/dL Lipase 223 (23-300) U/L Urine RBC 1-5/hpf (0-5/HPF) Urine WBC 0-1/hpf (0-5/HPF) Ur Squamous Epith Cells 0-1 /hpf Urine Bacteria None seen (None) Ur Culture Indicated? Cult not indicated Micro UA Comment Not Reportable 02/11/18 02/11/18 02/11/18 Range/Units 17:37 17:37 17:37 WBC 7.5 (4.5-11.0) X10^3/uL RBC 4.26 L (4.5-5.9) X10^6/uL Hgb 11.6 L (13.5-17.5) g/dL Hct 35.2 L (41-53) % MCV 82.7 (80-100) fL MCH 27.3 (26-34) PG MCHC 33.1 (30-36) % RDW 16.4 H (11.6-14.8) % Plt Count 215 (150-400) X10^3/uL Neut % (Auto) 63.7 (50-75) % Lymph % (Auto) 23.3 L (25-40) % [place] % (Auto) 10.8 (3-14) % Eos % (Auto) 1.3 L (2-4) % Baso % (Auto) 0.9 (0-2) % Neut # (Auto) 4800 (8163-1743) /uL Sodium 136 L (137-145) mmol/L Potassium 3.6 (3.4-5.1) mmol/L Chloride 102 (98-107) mmol/L Carbon Dioxide 24 (22-32) mmol/L BUN 19 (9-20) mg/dL Creatinine 0.80 (0.66-1.25) mg/dL Estimated GFR > 60.0 (>60) mL/min BUN/Creatinine Ratio 23.8 H (6-22) Glucose 175 H (80-110) mg/dL Hemoglobin A1c (4.0-6.0) % Calcium 8.5 (8.4-10.2) mg/dL Total Bilirubin (0.2-1.3) mg/dL AST (17-59) IU/L ALT (21-72) IU/L Alkaline Phosphatase (38-126) U/L Total Creatine Kinase (55-170) U/L CK-MB (CK-2) (<2.37) ng/mL CK-MB (CK-2) Rel Index (1.5-5.0) % Troponin I (0.01-0.034) ng/mL B-Natriuretic Peptide (<100) Total Protein (6.3-8.2) g/dL Albumin (3.5-5.0) g/dL Globulin (1.7-4.1) g/dL Albumin/Globulin Ratio (1.0-2.8) Triglycerides 145 (35-150) mg/dL Cholesterol 198 (140-199) mg/dL LDL Cholesterol, Calc 138 H (<100) mg/dL HDL Cholesterol 31 L (40-60) mg/dL Lipase (23-300) U/L Urine RBC (0-5/HPF) Urine WBC (0-5/HPF) Ur Squamous Epith Cells Urine Bacteria (None) Ur Culture Indicated? Micro UA Comment 02/11/18 02/11/18 Range/Units 17:37 17:37 WBC (4.5-11.0) X10^3/uL RBC (4.5-5.9) X10^6/uL Hgb (13.5-17.5) g/dL Hct (41-53) % MCV (80-100) fL MCH (26-34) PG MCHC (30-36) % RDW (11.6-14.8) % Plt Count (150-400) X10^3/uL Neut % (Auto) (50-75) % Lymph % (Auto) (25-40) % [place] % (Auto) (3-14) % Eos % (Auto) (2-4) % Baso % (Auto) (0-2) % Neut # (Auto) (5596-1912) /uL Sodium (137-145) mmol/L Potassium (3.4-5.1) mmol/L Chloride (98-107) mmol/L Carbon Dioxide (22-32) mmol/L BUN (9-20) mg/dL Creatinine (0.66-1.25) mg/dL Estimated GFR (>60) mL/min BUN/Creatinine Ratio (6-22) Glucose (80-110) mg/dL Hemoglobin A1c 10.6 H (4.0-6.0) % Calcium (8.4-10.2) mg/dL Total Bilirubin (0.2-1.3) mg/dL AST (17-59) IU/L ALT (21-72) IU/L Alkaline Phosphatase (38-126) U/L Total Creatine Kinase 112 (55-170) U/L CK-MB (CK-2) 2.50 H (<2.37) ng/mL CK-MB (CK-2) Rel Index 2.2 (1.5-5.0) % Troponin I 0.075 H (0.01-0.034) ng/mL B-Natriuretic Peptide (<100) Total Protein (6.3-8.2) g/dL Albumin (3.5-5.0) g/dL Globulin (1.7-4.1) g/dL Albumin/Globulin Ratio (1.0-2.8) Triglycerides (35-150) mg/dL Cholesterol (140-199) mg/dL LDL Cholesterol, Calc (<100) mg/dL HDL Cholesterol (40-60) mg/dL Lipase (23-300) U/L Urine RBC (0-5/HPF) Urine WBC (0-5/HPF) Ur Squamous Epith Cells Urine Bacteria (None) Ur Culture Indicated? Micro UA Comment Point of Care Testing Glucose POC 118 Urine Dip Bedside Urine Glucose 500 mg/dl Bedside Urine Bilirubin - Negative Bedside Urine Ketone - Negative Urine Specific Paden 1.020 Bedside Urine Occult Blood + Bedside Urine pH 6.0 Bedside Urine Protein ++ 100 Bedside Urine Urobilinogen - Negative Bedside Urine Nitrite - Negative Bedside Urine Leukocytes - Negative Esterase Discharge Plan Departure Patient Disposition: Admitted As Inpatient Clinical Impression: CHF (congestive heart failure) Discharge Date/Time: 02/11/18 16:57 Interventions: ED Discharge Assessment Last Done: 02/11/18 16:46 Admit Date/Time: 02/11/18 15:40 Admit Provider: Penny Sylvester <Samantha Oliver DO - Last Filed: 02/12/18 07:20> Cosign ED Attending Cosignature Attestation: I was immediately available in the department for consultation. This documentation has been reviewed and I agree with assessment and plan. Supervised by Samantha Oliver DO
[2018-02-11 15:53] LABS: Bacteria Urine None Seen
[2018-02-11 16:12] LABS: Culture Indicated Urine Cult Not Indicated; RBC Urine 1-5/HPF (0-5/HPF); Squamous Epithelial Cell Urine 0-1 /HPF; WBC Urine 0-1/HPF (0-5/HPF)
--- NOTE | 2018-02-11 16:56 | P.HP_ITS ---
History of Present Illness Date Patient Seen: 02/11/18 Chief complaint: Feet swollen, SOB, eyesight blurred Narrative: Patient is a 62-year-old male with a history of hypertension, type 2 diabetes, hepatitis C who was in his usual state of health until 3 weeks ago. Patient reports at that time he noticed swelling in both lower extremities. He has also noted increasing shortness of breath. Shortness of breath is worse when lying flat. He occasionally short of breath with activity. The patient works at [email or web address]. He noted that since moving to the awake overnight monitor his lower extremity appear to be worse. The patient denies any chest pain. He denies any fever chills or cough. He has no nausea vomiting or diarrhea. He denies any hematemesis melena, bright red blood per rectum. He denies any dysuria hematuria or pyuria he denies any joint pains. The patient apparently was on insulin 2 years ago. He also was taking a tunnel for his blood pressure. S he was unable to afford his medications he has discontinued them. He is not currently under the care of a physician. He denies any prior history of myocardial infarction. Denies any history of heart failure. The patient was evaluated in the emergency room. A chest x-ray confirmed pulmonary edema. His BNP was elevated at over 800. His blood pressure was 198/100 in the emergency department. Patient's initial troponin was elevated at 0.08. Patient is admitted to the hospital at this time for further evaluation. Patient reports a 30 pound weight loss over the last 2 years. Patient History Medical History Hepatitis C (Acute) Hypertension (Acute) Type 2 diabetes mellitus (Acute) Family & Social History Safety & Behavioral: Feels Safe in Current Yes Environment Tobacco & Substance use: Smoking Status Never smoker alcohol intake frequency 0-2 drinks per day Substance Use Type does not use Meds Home Medications Medication Instructions Recorded Confirmed Type Vitamin C Gummies 1 dose PO DAILY 02/11/18 02/11/18 History ascorbic [id number] 2 packet PO DAILY 02/11/18 02/11/18 History [Emergen-C] Allergies Allergy/AdvReac Type Severity Reaction Status Date / Time No Known Drug Allergies Allergy Verified 02/11/18 12:28 Review of Systems Review of Systems All systems reviewed & are unremarkable except as noted in HPI and below Exam Vital Signs (past 8 hours): - 02/11/18 12:28 02/11/18 13:48 02/11/18 15:03 Temperature 98.0 F Pulse Rate 98 H 91 H 83 Respiratory Rate 16 17 18 Blood Pressure 198/120 H Blood Pressure [Left Arm] 180/107 H 169/109 H Pulse Oximetry 98 95 97 02/11/18 16:33 Temperature Pulse Rate 73 Respiratory Rate 18 Blood Pressure Blood Pressure [Left Arm] 163/103 H Pulse Oximetry 94 Oxygen Delivery Method Room Air Narrative Exam Narrative: Pleasant gentleman in no acute distress HEENT: Normocephalic atraumatic, extraocular muscles are intact, geographic tongue noted, mucous moist mucous membranes, neck is supple, no appreciable JVD Lungs: Bibasilar crackles noted Cardiac exam: Regular rate and rhythm normal S1 and S2 with a 2/6 systolic ejection murmur Abdomen: Soft nontender nondistended without hepatosplenomegaly Extremity: 2+ pitting edema bilateral Neuro exam: Nonfocal Psych exam: No delusions takes or hallucination Objective Labs Result Diagrams: 02/11/18 13:20 02/11/18 13:20 Labs: Laboratory Results - last 24 hr 02/11/18 02/11/18 02/11/18 13:20 13:20 15:40 WBC 5.8 RBC 4.15 L Hgb 11.6 L Hct 34.1 L MCV 82.2 MCH 28.0 MCHC 34.1 RDW 16.4 H Plt Count 218 Neut % (Auto) 63.3 Lymph % (Auto) 23.7 L [place] % (Auto) 10.4 Eos % (Auto) 1.6 L Baso % (Auto) 1.0 Neut # (Auto) 3700 Sodium 137 Potassium 3.6 Chloride 102 Carbon Dioxide 24 BUN 20 Creatinine 0.80 Estimated GFR > 60.0 BUN/Creatinine Ratio 25.0 H Glucose 208 H Calcium 8.6 Total Bilirubin 0.4 AST 77 H ALT 65 Alkaline Phosphatase 110 Total Creatine Kinase 117 CK-MB (CK-2) 2.37 CK-MB (CK-2) Rel Index 2.0 Troponin I 0.061 H B-Natriuretic Peptide 800.0 H Total Protein 6.6 Albumin 3.2 L Globulin 3.4 Albumin/Globulin Ratio 0.9 L Lipase 223 Urine RBC 1-5/hpf Urine WBC 0-1/hpf Ur Squamous Epith Cells 0-1 /hpf Urine Bacteria None seen Ur Culture Indicated? Cult not indicated Micro UA Comment Not Reportable Assessment & Plan (1) CHF (congestive heart failure): Problem details: Will obtain 2D echo in the morning. Patient will be started on Lasix 40 mg IV twice daily. Qualifiers: Heart failure chronicity: unspecified Heart failure type: unspecified Qualified Code(s): I50.9 - Heart failure, unspecified Current visit: Yes Status: Acute (2) Type 2 diabetes mellitus: Problem details: Patient previously was taking Lantus 10 mg twice daily. Start him on 10 mg at night plus a sliding scale of insulin. Will obtain hemoglobin A1c and fasting lipid profile Current visit: Yes Status: Acute (3) Hypertension: Problem details: Patient was previously on atenolol. Will start metoprolol at this time. Consider Javon inhibitor as well. Will modify treatment based on echocardiogram results Current visit: Yes Status: Acute (4) Hepatitis C virus infection without hepatic coma: Current visit: Yes Status: Acute Plan: Assessment/Plan Narrative: Patient is a full code and will note that his record accordingly.
[2018-02-11 17:51] LABS: Add Manual Diff / Slide Review NO; Basophils Percent Auto 0.9 % (0-2); Eosinophils Percent Auto 1.3 % (2-4); Hematocrit 35.2 % (41-53); Hemoglobin 11.6 g/dL (13.5-17.5); Lymphocytes Percent Auto 23.3 % (25-40); Mean Corpuscular HGB Conc 33.1 % (30-36); Mean Corpuscular Hemoglobin 27.3 PG (26-34); Mean Corpuscular Volume 82.7 fL (80-100); Monocytes Percent Auto 10.8 % (3-14); Neutrophils Absolute Auto 4800 /uL (3000-5900); Neutrophils Percent Auto 63.7 % (50-75); Platelet Count 215 X10^3/uL (150-400); Red Blood Cell Count 4.26 X10^6/uL (4.5-5.9); Red Cell Distribution Width 16.4 % (11.6-14.8); White Blood Cell Count 7.5 X10^3/uL (4.5-11.0)
[2018-02-11 17:59] LABS: Hemoglobin A1C% w Est Avg Glu 10.6 % (4.0-6.0)
[2018-02-11] MEDS: INSULIN ASPART 100 UNIT/ML INSULN PEN SUBCUT ×2 (17:59→20:53)
[2018-02-11 18:06] LABS: Creatine Kinase 112 U/L (55-170)
[2018-02-11 18:07] LABS: BUN Creatinine Ratio 23.8 (6-22); Blood Urea Nitrogen 19 mg/dL (9-20); Calcium 8.5 mg/dL (8.4-10.2); Carbon Dioxide 24 mmol/L (22-32); Chloride 102 mmol/L (98-107); Cholesterol 198 mg/dL (140-199); Estimated Glomerular Filt Rate > 60.0 mL/min (>60); Glucose 175 mg/dL (80-110); HDL Cholesterol 31 mg/dL (40-60); HEMOLYSIS < 15 (0-50); LDL Cholesterol Calculated 138 mg/dL (<100); Potassium 3.6 mmol/L (3.4-5.1); Sodium 136 mmol/L (137-145); Triglycerides 145 mg/dL (35-150)
[2018-02-11 18:19] LABS: Troponin I 0.075 ng/mL (0.01-0.034)
[2018-02-11 18:21] LABS: CKMB % Relative Index 2.2 % (1.5-5.0)
--- NOTE | 2018-02-11 19:16 | PC.NURSE ---
ADMIT Received pt at approximately 1720 via Airtime, accompanied by ED ABALONE PROCESSOR and family. A&Ox3, pleasant and cooperative with care. pt with 3+ pitting edema to BLE, swelling goes up to about knee area. pt's bilateral fingers also appear slightly swollen. breathe sounds clear. pt denies any numbness/tingling, states bilateral feet feel tight. denies pain, N/V, or SOB. telemetry monitoring maintained. pt oriented to room. call light within reach.
[2018-02-11] MEDS: SODIUM CHLORIDE 0.9% 250 ML 21 ML IV (20:44)
[2018-02-11] MEDS: SODIUM CHLORIDE 0.9% FLUSH 10 ML IV (20:45)
[2018-02-11] MEDS: DOCUSATE 100 MG CAPSULE PO (20:45)
[2018-02-11] MEDS: METOPROLOL ER 50 MG TABLET PO (20:45)
[2018-02-11] MEDS: INSULIN GLARGINE 100 UNIT/ML 3ML PEN 10 UNIT SUBCUT (20:53)
--- NOTE | 2018-02-11 23:48 | PC.NURSE ---
Addendum entered by Corin Gutierrez R.N. 02/12/18 05:48: Sats have maintained in upper 90's while on oxygen and asleep. Original Note: Addendum entered by Corin Gutierrez R.N. 02/12/18 00:35: Found patient to be asleep and sat down to 85% so started on oxygen at 1L/min and will titrate to maintain > 92%. Original Note: Patient is alert and oriented. Breath sounds diminished in left mid/lower lobes but otherwise CTA with RA sat of 92%; placed on continuous oximetry as per MD order. Denies SOB. HRR and has been SR on telemetry. BP is elevated at 148/96 but reportedly has been noncompliant with meds prior to hospitalization. Denies nausea. BT hypoactive; passing flatus. Denies dysuria, frequency or urgency; using urinal at bedside. Independent with bed mobility. 3+ bilateral LE edema noted. Denies pain. Fall risk score is moderate and bed alarm is on; reminded to call for assistance before getting out of bed.
[2018-02-12] VITALS (11 sets, daily range): BP systolic 142–156; BP diastolic 82–99; PULSE 66–76; RESP 16–24; TEMP 36.6–36.8; O2SAT 93–98
[2018-02-12] MEDS: DOCUSATE 100 MG CAPSULE PO (08:52)
[2018-02-12] MEDS: METOPROLOL ER 50 MG TABLET PO ×2 (08:52→20:51)
[2018-02-12] MEDS: ENOXAPARIN 40 MG/0.4 ML SYRINGE SUBCUT (08:52)
[2018-02-12] MEDS: FUROSEMIDE 40 MG/4 ML VIAL IV ×2 (08:52→21:05)
[2018-02-12] MEDS: SODIUM CHLORIDE 0.9% FLUSH 10 ML IV ×2 (08:53→21:05)
[2018-02-12] MEDS: INSULIN ASPART 100 UNIT/ML INSULN PEN SUBCUT ×3 (08:54→17:17)
--- NOTE | 2018-02-12 13:32 | PM.PN.1 ---
Subjective Date Patient Seen: 02/12/18 Interval history: He is seen today in his room to follow-up the diabetes mellitus type 2, congestive heart failure and hypertension. His main issue is edema at this stage. The shortness of breath has been relieved with diuresis. The echocardiogram shows a 35-40% ejection fraction. The A1c is 10.6. The BNP is 800. The blood pressure is 155/99 at this time. Exam Vital Signs (past 8 hours): - 02/12/18 07:00 02/12/18 07:30 02/12/18 08:52 Temperature 97.9 F Pulse Rate 73 76 Respiratory Rate 20 Blood Pressure 150/93 H 150/93 H Pulse Oximetry 96 96 02/12/18 11:55 Temperature 97.8 F Pulse Rate 71 Respiratory Rate 24 Blood Pressure 149/90 H Pulse Oximetry 97 Oxygen Delivery Method Nasal Cannula Oxygen Flow Rate 1 Narrative Exam Narrative: He is alert and oriented x3 and in no apparent distress. Heart is regular rate and rhythm without murmur. Lungs are clear to auscultation bilaterally. Extremities have 2+ edema of the entirety of both legs. Objective Labs Result Diagrams: 02/11/18 17:37 02/11/18 17:37 Labs: Laboratory Results - last 24 hr 02/11/18 02/11/18 02/11/18 13:20 13:20 15:40 WBC 5.8 RBC 4.15 L Hgb 11.6 L Hct 34.1 L MCV 82.2 MCH 28.0 MCHC 34.1 RDW 16.4 H Plt Count 218 Neut % (Auto) 63.3 Lymph % (Auto) 23.7 L [place] % (Auto) 10.4 Eos % (Auto) 1.6 L Baso % (Auto) 1.0 Neut # (Auto) 3700 Sodium 137 Potassium 3.6 Chloride 102 Carbon Dioxide 24 BUN 20 Creatinine 0.80 Estimated GFR > 60.0 BUN/Creatinine Ratio 25.0 H Glucose 208 H Hemoglobin A1c Calcium 8.6 Total Bilirubin 0.4 AST 77 H ALT 65 Alkaline Phosphatase 110 Total Creatine Kinase 117 CK-MB (CK-2) 2.37 CK-MB (CK-2) Rel Index 2.0 Troponin I 0.061 H B-Natriuretic Peptide 800.0 H Total Protein 6.6 Albumin 3.2 L Globulin 3.4 Albumin/Globulin Ratio 0.9 L Triglycerides Cholesterol LDL Cholesterol, Calc HDL Cholesterol Lipase 223 Urine RBC 1-5/hpf Urine WBC 0-1/hpf Ur Squamous Epith Cells 0-1 /hpf Urine Bacteria None seen Ur Culture Indicated? Cult not indicated Micro UA Comment Not Reportable 02/11/18 02/11/18 02/11/18 17:37 17:37 17:37 WBC 7.5 RBC 4.26 L Hgb 11.6 L Hct 35.2 L MCV 82.7 MCH 27.3 MCHC 33.1 RDW 16.4 H Plt Count 215 Neut % (Auto) 63.7 Lymph % (Auto) 23.3 L [place] % (Auto) 10.8 Eos % (Auto) 1.3 L Baso % (Auto) 0.9 Neut # (Auto) 4800 Sodium 136 L Potassium 3.6 Chloride 102 Carbon Dioxide 24 BUN 19 Creatinine 0.80 Estimated GFR > 60.0 BUN/Creatinine Ratio 23.8 H Glucose 175 H Hemoglobin A1c Calcium 8.5 Total Bilirubin AST ALT Alkaline Phosphatase Total Creatine Kinase CK-MB (CK-2) CK-MB (CK-2) Rel Index Troponin I B-Natriuretic Peptide Total Protein Albumin Globulin Albumin/Globulin Ratio Triglycerides 145 Cholesterol 198 LDL Cholesterol, Calc 138 H HDL Cholesterol 31 L Lipase Urine RBC Urine WBC Ur Squamous Epith Cells Urine Bacteria Ur Culture Indicated? Micro UA Comment 02/11/18 02/11/18 17:37 17:37 WBC RBC Hgb Hct MCV MCH MCHC RDW Plt Count Neut % (Auto) Lymph % (Auto) [place] % (Auto) Eos % (Auto) Baso % (Auto) Neut # (Auto) Sodium Potassium Chloride Carbon Dioxide BUN Creatinine Estimated GFR BUN/Creatinine Ratio Glucose Hemoglobin A1c 10.6 H Calcium Total Bilirubin AST ALT Alkaline Phosphatase Total Creatine Kinase 112 CK-MB (CK-2) 2.50 H CK-MB (CK-2) Rel Index 2.2 Troponin I 0.075 H B-Natriuretic Peptide Total Protein Albumin Globulin Albumin/Globulin Ratio Triglycerides Cholesterol LDL Cholesterol, Calc HDL Cholesterol Lipase Urine RBC Urine WBC Ur Squamous Epith Cells Urine Bacteria Ur Culture Indicated? Micro UA Comment Assessment & Plan Plan: Assessment/Plan Narrative: (1) CHF (congestive heart failure): Problem details: Continue Lasix 40 mg IV twice daily. Continue metoprolol. Begin lisinopril. He will need further cardiac testing and consultation, likely as an outpatient assuming he stabilizes in the next few days and returns home. Qualifiers: Heart failure chronicity: unspecified Heart failure type: unspecified Qualified Code(s): I50.9 - Heart failure, unspecified Current visit: Yes Status: Acute (2) Type 2 diabetes mellitus: Problem details: Patient previously was taking Lantus 10 units twice daily. Started him again on 10 units at night plus a sliding scale of insulin. A1c 10.6. Current visit: Yes Status: Acute (3) Hypertension: Problem details: Add lisinopril to the metoprolol at this time. Will modify treatment based on on blood pressure response, possibly adding spironolactone. Current visit: Yes Status: Acute (4) Hepatitis C virus infection without hepatic coma: Current visit: Yes Status: Acute Plan: Assessment/Plan Narrative: Patient is a full code and will note that his record accordingly. Quality VTE Deep Vein Thrombosis/Pulmonary Embolism Present on Admission: No
--- NOTE | 2018-02-12 14:59 | PM.PN.1 ---
Subjective Date Patient Seen: 02/13/18 Interval history: He is seen today to follow-up his congestive heart failure, DM 2, hypertension and apparent coronary artery disease.The echocardiogram shows a 35-40% ejection fraction. The A1c is 10.6. The BNP is 800. He has diuresed quite well, with the weight down by 2.4 kg since yesterday. The potassium is now 3.4 with a GFR greater than 60 and a creatinine of 1.1. The BNP is 568. Exam Vital Signs (past 8 hours): - 02/12/18 07:00 02/12/18 07:30 02/12/18 08:52 Temperature 97.9 F Pulse Rate 73 76 Respiratory Rate 20 Blood Pressure 150/93 H 150/93 H Pulse Oximetry 96 96 02/12/18 11:55 Temperature 97.8 F Pulse Rate 71 Respiratory Rate 24 Blood Pressure 149/90 H Pulse Oximetry 97 Oxygen Delivery Method Nasal Cannula Oxygen Flow Rate 1 Narrative Exam Narrative: He is alert and oriented x3. Lungs are clear to auscultation bilaterally. Heart is regular rate and rhythm without murmur. He has 1+ edema of both lower legs. Objective Labs Result Diagrams: 02/11/18 17:37 02/13/18 05:15 Labs: Laboratory Results - last 24 hr 02/11/18 02/11/18 02/11/18 15:40 17:37 17:37 WBC 7.5 RBC 4.26 L Hgb 11.6 L Hct 35.2 L MCV 82.7 MCH 27.3 MCHC 33.1 RDW 16.4 H Plt Count 215 Neut % (Auto) 63.7 Lymph % (Auto) 23.3 L [place] % (Auto) 10.8 Eos % (Auto) 1.3 L Baso % (Auto) 0.9 Neut # (Auto) 4800 Sodium 136 L Potassium 3.6 Chloride 102 Carbon Dioxide 24 BUN 19 Creatinine 0.80 Estimated GFR > 60.0 BUN/Creatinine Ratio 23.8 H Glucose 175 H Hemoglobin A1c Calcium 8.5 Total Creatine Kinase CK-MB (CK-2) CK-MB (CK-2) Rel Index Troponin I Triglycerides Cholesterol LDL Cholesterol, Calc HDL Cholesterol Urine RBC 1-5/hpf Urine WBC 0-1/hpf Ur Squamous Epith Cells 0-1 /hpf Urine Bacteria None seen Ur Culture Indicated? Cult not indicated Micro UA Comment Not Reportable 02/11/18 02/11/18 02/11/18 17:37 17:37 17:37 WBC RBC Hgb Hct MCV MCH MCHC RDW Plt Count Neut % (Auto) Lymph % (Auto) [place] % (Auto) Eos % (Auto) Baso % (Auto) Neut # (Auto) Sodium Potassium Chloride Carbon Dioxide BUN Creatinine Estimated GFR BUN/Creatinine Ratio Glucose Hemoglobin A1c 10.6 H Calcium Total Creatine Kinase 112 CK-MB (CK-2) 2.50 H CK-MB (CK-2) Rel Index 2.2 Troponin I 0.075 H Triglycerides 145 Cholesterol 198 LDL Cholesterol, Calc 138 H HDL Cholesterol 31 L Urine RBC Urine WBC Ur Squamous Epith Cells Urine Bacteria Ur Culture Indicated? Micro UA Comment Assessment & Plan Plan: Assessment/Plan Narrative: (1) CHF (congestive heart failure): Problem details: Continue Lasix 40 mg IV twice daily. Continue metoprolol and lisinopril. He will need further cardiac testing and consultation, likely as an outpatient assuming that stratification with a Lexiscan cannot be done here in the next few days. Qualifiers: Heart failure chronicity: unspecified Heart failure type: unspecified Qualified Code(s): I50.9 - Heart failure, unspecified Current visit: Yes Status: Acute (2) Type 2 diabetes mellitus: Problem details: Patient previously was taking Lantus 10 units twice daily. Continue 10 units at night plus a sliding scale of insulin. A1c 10.6. BS normal today. Current visit: Yes Status: Acute (3) Hypertension: Currently controlled on Metoprolol and Lisinopril. Will modify treatment based on on blood pressure response, possibly adding spironolactone. Current visit: Yes Status: Acute (4) Hepatitis C virus infection without hepatic coma: Current visit: Yes Status: Acute Plan: Assessment/Plan Narrative: Patient is a full code Disposition. Probably home tomorrow. Quality VTE Deep Vein Thrombosis/Pulmonary Embolism Present on Admission: No
[2018-02-12] MEDS: LISINOPRIL 20 MG TABLET PO (15:58)
--- NOTE | 2018-02-12 15:59 | CM.DANOTE ---
Discharge Planning/Care Management CM Discharge Assessment Start: 02/12/18 15:56 Freq: Status: Active Protocol: Document 02/12/18 15:56 (Rec: 02/12/18 15:59 [id number]) Discharge Planning Assessment Assigned Lawn Care Professional BELINDA Knight Advance Directives? No History Provided By Patient Medical Record Has Patient been admitted in last 30 No days? Prior Living Arrangements Mobile home Household Members none Type of transporation used prior to Drives own vehicle admit Comment Works at [employer]. Independent with ADL's Yes Is patient alert and oriented? Yes Caregiver for Another No Discharge Plan Home Transportation Arrangement Patient drove himself to hospital and is hopeful to drive himself home. Additional Comment Patient has ex- and two adult sons that reside in [facility]. Whiteboard Updated in Patient Room with Yes name and ext. # of Lawn Care Professional Comment Patient is currently OBS Review Status In Process Please Provide Date Initial DC 02/12/18 Assessment Was Performed Next Review Type Continued Stay Review
[2018-02-12] MEDS: INSULIN GLARGINE 100 UNIT/ML 3ML PEN 10 UNIT SUBCUT (20:53)
--- NOTE | 2018-02-12 23:06 | PC.NURSE ---
SHIFT NOTE A&Ox3, pleasant and cooperative with care. pt verbalized feeling bored in the hospital and wanting to d/c home soon to be able to return to work. BLE swelling imporved compared to yesterday, 2+ pitting. pt denies any chest pain, dizziness, or SOB. ambulated in hallway x1 this shift with SBA. telemetry monitoring maintained. call light within reach.
[2018-02-13] VITALS (10 sets, daily range): BP systolic 138–152; BP diastolic 83–105; PULSE 66–72; RESP 16–19; TEMP 36.4–37.1; O2SAT 93–98
[2018-02-13 05:35] LABS: BUN Creatinine Ratio 21.8 (6-22); Blood Urea Nitrogen 24 mg/dL (9-20); Calcium 8.4 mg/dL (8.4-10.2); Carbon Dioxide 29 mmol/L (22-32); Chloride 102 mmol/L (98-107); Estimated Glomerular Filt Rate > 60.0 mL/min (>60); Glucose 103 mg/dL (80-110); HEMOLYSIS < 15 (0-50); Potassium 3.4 mmol/L (3.4-5.1); Sodium 138 mmol/L (137-145)
[2018-02-13] MEDS: FUROSEMIDE 40 MG/4 ML VIAL IV ×2 (08:43→20:45)
[2018-02-13] MEDS: ENOXAPARIN 40 MG/0.4 ML SYRINGE SUBCUT (08:43)
[2018-02-13] MEDS: LISINOPRIL 20 MG TABLET PO (08:44)
[2018-02-13] MEDS: SODIUM CHLORIDE 0.9% FLUSH 10 ML IV ×2 (08:44→20:49)
[2018-02-13] MEDS: METOPROLOL ER 50 MG TABLET PO ×2 (08:44→20:49)
--- NOTE | 2018-02-13 11:46 | CM.DPNOTE ---
DCP Cont: Per MD, pt not medically stable for d/c home yet today but likely tomorrow if stable. Per RN, pt requesting fax number for his work/insurance. SW met bedside with pt and explained role and pt confirmed that his employer [employer] only allows 3 days off for medical needs unless submitted documentation is provided. SW gave pt the Care Management fax number in case his employer or insurance was requesting medical documentation and pt states he plans to call both to determine if anything further is needed. Pt was hoping for d/c home today and states he is feeling better but agreeable with stabilizing further prior to discharge home. Plan: SW to follow for possible d/c home tomorrow if medically stable. BELINDA Abdullahi
--- NOTE | 2018-02-13 15:13 | PC.NURSE ---
Kym called for patient who requested to have Hindu communion brought to him in room tomorrow 02/14.
[2018-02-13] MEDS: ACETAMINOPHEN 325 MG TABLET 650 MG PO (17:52)
--- NOTE | 2018-02-13 18:42 | PC.NURSE ---
Pt C/O RIDER @ [id number], medicated with Tylenol 650mg PO, effective. Telemetry in place with NSR BBB, HR-64. 96%RA, LS clear, denies SOB. BT+, denies nausea. CBG-110, no coverage required. 1-2+ pitting edema BLE. SBA to BRP to void clear yellow urine. Call light in reach. No further needs at this time.
[2018-02-13] MEDS: DOCUSATE 100 MG CAPSULE PO (20:45)
[2018-02-13] MEDS: INSULIN GLARGINE 100 UNIT/ML 3ML PEN 10 UNIT SUBCUT (20:46)
[2018-02-14] VITALS: O2SAT 94
[2018-02-14 03:00] VITALS: BP 155/91; PULSE 68; RESP 18; TEMP 36.8; O2SAT 96
[2018-02-14 07:35] VITALS: BP 157/95; PULSE 70; RESP 16; TEMP 36.7; O2SAT 94
[2018-02-14] MEDS: INSULIN ASPART 100 UNIT/ML INSULN PEN SUBCUT ×2 (08:21→12:04)
[2018-02-14] MEDS: METOPROLOL ER 50 MG TABLET PO (10:20)
[2018-02-14] MEDS: LISINOPRIL 20 MG TABLET PO (10:20)
[2018-02-14] MEDS: ENOXAPARIN 40 MG/0.4 ML SYRINGE SUBCUT (10:20)
[2018-02-14] MEDS: SODIUM CHLORIDE 0.9% FLUSH 10 ML IV (10:21)
[2018-02-14] MEDS: FUROSEMIDE 40 MG/4 ML VIAL IV (10:21)
[2018-02-14 11:00] VITALS: BP 151/95; PULSE 71; RESP 16; TEMP 36.8; O2SAT 94
--- NOTE | 2018-02-14 13:07 | P.DS_ITS ---
History of Present Illness Date Patient Seen: 02/14/18 Chief complaint: Feet swollen, SOB, eyesight blurred Narrative: Patient is a 62-year-old male with a history of hypertension, type 2 diabetes, hepatitis C who was in his usual state of health until 3 weeks ago. Patient reports at that time he noticed swelling in both lower extremities. He has also noted increasing shortness of breath. Shortness of breath is worse when lying flat. He occasionally short of breath with activity. The patient works at [employer]. 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 The patient denies any chest pain. He denies any fever chills or cough. He has no nausea vomiting or diarrhea. He denies any hematemesis melena, bright red blood per rectum. He denies any dysuria hematuria or pyuria he denies any joint pains. The patient apparently was on insulin 2 years ago. He also was taking a tunnel for his blood pressure. S he was unable to afford his medications he has discontinued them. He is not currently under the care of a physician. He denies any prior history of myocardial infarction. Denies any history of heart failure. The patient was evaluated in the emergency room. A chest x-ray confirmed pulmonary edema. His BNP was elevated at over 800. His blood pressure was 198/100 in the emergency department. Patient's initial troponin was elevated at 0.08. Patient is admitted to the hospital at this time for further evaluation. Patient reports a 30 pound weight loss over the last 2 years. Discharge Providers Date of admission: 02/11/18 15:40 Consults: 02/11/18 17:30 Consult to Pastoral Services Routine Comment: pt request Discharge provider: Fiordaliza Null MD Discharge Date: 02/14/18 Summary Hospital Course: (1) CHF (congestive heart failure): Problem details: Continue Lasix 40 mg PO twice daily at home. Continue metoprolol and lisinopril. He will need further cardiac testing and consultation, including a Lexiscan in the next week or two. Qualifiers: Heart failure chronicity: unspecified Heart failure type: unspecified Qualified Code(s): I50.9 - Heart failure, unspecified Current visit: Yes Status: Acute On the Echo the findings were: The ejection fraction is estimated to be 35-40%. There is moderate global hypokinesis of the left ventricle. There is inferior wall severe hypokinesis. (2) Type 2 diabetes mellitus: Problem details: Patient previously was taking Lantus 10 units twice daily. Continue 10 units at night plus a 5 unit short acting insulin with meals. A1c 10.6. BS much improved. Current visit: Yes Status: Acute (3) Hypertension: Currently controlled on Metoprolol and Lisinopril. His PCP can modify treatment based on on blood pressure response, possibly adding spironolactone. Current visit: Yes Status: Acute (4) Hepatitis C virus infection without hepatic coma: Current visit: Yes Status: Acute Plan: Assessment/Plan Narrative: Patient is a full code Exam Vital Signs (past 8 hours): - 02/14/18 07:35 Temperature 98.0 F Pulse Rate 70 Respiratory Rate 16 Blood Pressure 157/95 H Pulse Oximetry 94 Oxygen Delivery Method Room Air Oxygen Flow Rate 0 Narrative Exam Narrative: He is alert and oriented x3 and in no apparent distress. Heart is regular rate and rhythm without murmur. Lungs are clear to auscultation bilaterally. Extremities have 1+ edema of only the right ankle now. His weight is down by 2.5 kg in the last day. Objective Labs Result Diagrams: 02/11/18 17:37 02/13/18 05:15 Discharge Plan Discharge Plan Patient Disposition: Home Discharge comment: We will try to help you find a new PCP so you can have your heart testing done MACHO. Discharge Med Rec/Prescriptions Prescriptions: New insulin aspart U-100 [Novolog Flexpen U-100 Insulin] 100 unit/mL Insulin Pen 5 unit subcut AC Qty: 15 RF: 0 metoprolol succinate 50 mg Tablet Extended Release 24 Hr 50 mg PO BID Qty: 60 RF: 0 lisinopril 20 mg Tablet 20 mg PO DAILY Qty: 30 RF: 0 insulin glargine [Lantus Solostar U-100 Insulin] 100 unit/mL (3 mL) Insulin Pen 10 unit subcut BEDTIME Qty: 2 RF: 0 furosemide [Lasix] 40 mg tablet 40 mg PO BID Qty: 60 RF: 0 potassium chloride 10 mEq capsule, extended release 10 meq PO DAILY Qty: 30 RF: 0 Continue ascorbic [id number] [Emergen-C] 1,000 mg Powder Effervescent In Packet 2 packet PO DAILY RF: 0 Vitamin C Gummies 1 dose PO DAILY RF: 0 Visit Report/Discharge Packet Instructions: Potassium, Insulin Glargine (rDNA origin) Injection, Insulin Aspart (rDNA Origin) Injection, Furosemide, Metoprolol, Lisinopril Visit Report Forms: Stroke Signs & Symptoms Discharge Data Attending Provider: Penny Sylvester Admit Date/Time: 02/11/18 15:40 Discharges patient from system. Discharge Date/Time: 02/14/18 14:30 Quality VTE Deep Vein Thrombosis/Pulmonary Embolism Present on Admission: No
--- NOTE | 2018-02-14 14:43 | PC.NURSE ---
Discharge Note: Patient discharged home this shift at 1430. Patient driving himself home. Discharge prescriptions and instructions reviewed with patient by Debra Epperson RN. Patient denied questions at time of discharge. BELINDA Boo checked in with patient prior to discharge about L7I paperwork from [employer] concerning patient. Patient given Care Management phone number in case of questions about stay. Work note given to patient by Dr. Null. Phone numbers given for patient to establish PCM for follow-up and continued care.
== END 2018-02-14 14:30 | disposition home or self-care (01) ==
LOC: ED 15:21 → AC 16:53
PROVIDERS: Family Medicine; Admitting Provider Internal Medicine; Emergency Provider Nurse Practitioner Family; Visit Provider Internal Medicine
DX: I11.0 Hypertensive heart disease with heart failure (principal); R60.9 Edema, unspecified; E11.9 Type 2 diabetes mellitus without complications; Z79.4 Long term (current) use of insulin; B19.20 Unspecified viral hepatitis C without hepatic coma; R06.02 Shortness of breath; H53.8 Other visual disturbances
CPT/HCPCS: 36415; 36591; 70450; 71045; 80048; 80053; 80061; 81003; 81015; 82550; 82553; 82962; 83036; 83690; 83880; 84484; 85025; 93005; 93306; 94762; 96374; 99284; 99285; G0378; J1650; J1940

== ENCOUNTER 2018-04-29 12:53 | Emergency (ER) | payer BC, SELFPAY ==
[2018-02-11 17:18] VITALS: BMI 27.5
[2018-04-29] VITALS (12 sets, daily range): BP systolic 119–152; BP diastolic 67–90; PULSE 66–71; RESP 15–18; TEMP 36.2–37.6; O2SAT 97–100; BMI 24.3
--- NOTE | 2018-04-29 15:55 | DI.RAD.S_ITS ---
PROCEDURE: XR CHEST 1V INDICATIONS: weakness TECHNIQUE: One view of the chest was acquired. COMPARISON: [facility], CR, XR CHEST 1V, 02/11/2018, 13:49. FINDINGS: Surgical changes and devices: None. Lungs and pleura: Lungs are clear. No pleural effusions or pneumothorax. Mediastinum: Mediastinal contours appear normal. Heart size is mildly enlarged. Bones and chest wall: No suspicious bony lesions. Overlying soft tissues appear unremarkable. IMPRESSION: No acute pulmonary pathology. Dictated by: Rolando Yoon M.D. on 04/29/2018 at 16:23 Approved by: Rolando Yoon M.D. on 04/29/2018 at 16:23
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
[2018-04-29 16:08] LABS: Add Manual Diff / Slide Review NO; Basophils Absolute Auto 100 /uL (0-100); Eosinophils Absolute Auto 100 /uL (0-450)
[2018-04-29 16:11] LABS: BUN Creatinine Ratio 29.2 (6-22); Blood Urea Nitrogen 38 mg/dL (9-20); Calcium 9.2 mg/dL (8.4-10.2); Carbon Dioxide 26 mmol/L (22-32); Chloride 99 mmol/L (98-107); Estimated Glomerular Filt Rate 55.8 mL/min (>60); Glucose 154 mg/dL (80-110); HEMOLYSIS < 15 (0-50); Potassium 4.3 mmol/L (3.4-5.1); Sodium 135 mmol/L (137-145)
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
[2018-04-29 16:16] LABS: Basophils Percent Auto 1.1 % (0-2); Eosinophils Percent Auto 0.8 % (2-4); Lymphocytes Absolute Auto 1900 /uL (1100-4500); Lymphocytes Percent Auto 23.2 % (25-40); Mean Corpuscular HGB Conc 32.2 % (30-36); Mean Corpuscular Hemoglobin 27.8 PG (26-34); Mean Corpuscular Volume 86.2 fL (80-100); Monocytes Absolute Auto 700 /uL (0-900); Monocytes Percent Auto 9.1 % (3-14); Neutrophils Absolute Auto 5400 /uL (1500-7000); Neutrophils Percent Auto 65.8 % (50-75); Platelet Count 208 X10^3/uL (150-400); Red Blood Cell Count 2.26 X10^6/uL (4.5-5.9); Red Cell Distribution Width 16.2 % (11.6-14.8); White Blood Cell Count 8.1 X10^3/uL (4.5-11.0)
[2018-04-29 16:19] LABS: Hematocrit 19.5 % (41-53); Hemoglobin 6.3 g/dL (13.5-17.5)
[2018-04-29 16:22] LABS: Troponin I 0.045 ng/mL (0.01-0.034)
--- NOTE | 2018-04-29 16:38 | PC.NURSE ---
pt reports, generalized weakness for 1.5 weeks, worsen with walking. s/p cardiac stent placement 07 april, at [facility]. denies any chest discomfort at this time, denies dizziness, light headedness, shortness of breath at rest. denies vomiting or diarrhea. appetite good, denies uti sxs. alert and awake ox3, skin pale, warm dry. takes aspirin and plavix.
[2018-04-29 16:39] LABS: Procalcitonin < 0.05 ng/mL (<0.5)
--- NOTE | 2018-04-29 19:54 | PC.NURSE ---
by quality control clerk
== END 2018-04-29 21:30 | disposition short-term general hospital (02) ==
PROVIDERS: Emergency Provider Emergency Medicine
DX: K92.2 Gastrointestinal hemorrhage, unspecified (principal); D64.9 Anemia, unspecified
CPT/HCPCS: 36430; 36591; 71045; 80048; 81003; 84145; 84484; 85025; 86850; 86900; 86901; 93005; 99283; 99285; P9016

== ENCOUNTER → 2018-12-10 15:07 | Outpatient (CLI) | payer BC, SELFPAY ==
[2018-02-11 17:18] VITALS: BMI 27.5
--- NOTE | 2018-12-10 | DI.ECHO.S_ITS ---
[facility]---------+ [facility] +---------+ : : [address] : [place] : : : : [id number] : : : : Phone: [phone] Echocardiogram Report + + :Name: DEION CLARK Study Date: 12/10/2018 Height: 69 in : :[facility] Weight: 168 lb : : Gender: Male BSA: 1.9 m2 : :: 1955 Age: 63 yrs BP: 139/78 mmHg: :Reason For Study: Congestive Heart Failure : : Performed By: Dang Marley : :Referring: JS HSIEH : + + Interpretation Summary The left ventricle is normal in size. Left ventricular systolic function is low normal. Left ventricular ejection fraction is estimated to be 50%. LV has improved. There are no focal wall motion abnormalities. LV inferior wall motion has improved. The right ventricle grossly appears normal in size with probable normal systolic function. The left atrium is moderately dilated. Right atrial size is normal. There is no significant valvular heart disease. The ascending aorta is at the upper limits of normal in size. Procedure: A two-dimensional transthoracic echocardiogram with color flow and Doppler was performed. The study quality was technically excellent. Comparison is made with the echocardiogram of 02-12-18. The patient was in normal sinus rhythm during the exam. Left Ventricle: The left ventricle is normal in size. Left ventricular wall thickness is mildly increased. Left ventricular systolic function is low normal. Left ventricular ejection fraction is estimated to be 50%. There are no focal wall motion abnormalities. Diastolic function could not be accurately assessed due to unobtainable data. Right Ventricle: The right ventricle grossly appears normal in size with probable normal systolic function. Atria: The left atrium is moderately dilated. Right atrial size is normal. The interatrial septum is intact with no evidence for an atrial septal defect. Mitral Valve: The mitral valve is normal in structure and function. There is trace mitral regurgitation. Aortic Valve: The aortic valve is trileaflet. The aortic valve opens well. There is trace aortic regurgitation. Tricuspid Valve: The tricuspid valve is normal in structure and function. No tricuspid regurgitation. Pulmonic Valve: The pulmonic valve is normal in structure and function. There is no pulmonic valvular regurgitation. There is no significant valvular heart disease. Great Vessels: The aortic root is normal size. The ascending aorta is at the upper limits of normal in size. The IVC is of normal diameter and collapses greater than 50% with a sniff. This suggests a low right atrial pressure of 3 mm Hg. Pericardium/ Pleura There is no pericardial effusion. There is no pleural effusion. MMode/2D Measurements & Calculations LVIDd: 5.5 cm Ao root diam: 3.6 cm LVIDs: 3.7 cm Aortic Jxn: 2.9 cm FS: 32.6 % asc Aorta Diam: 3.5 cm EPSS: 1.1 cm Ao Arch Diam (Prox Trans): 2.9 cm IVSd: 1.2 cm LVPWd: 0.97 cm LV reilly. diameter/BSA (cm/m^2): 2.8 LV sys. diameter/BSA (cm/m^2): 1.9 LA dimension: 4.2 cm RA long axis: 4.9 cm LA A2 area: 24.8 cm2 RA area: 15.3 cm2 LA A4 area: 21.0 cm2 RA vol: 40.6 ml LA length (vol): 4.6 cm RA : 21.2 ml/m2 LA vol: 96.9 ml IVC diam: 2.1 cm LA vol index: 50.5 ml/m2 RVDd major: 6.3 cm RVD1 (basal): 3.6 cm RVD2 (mid): 3.2 cm Doppler Measurements & Calculations Ao V2 max: 147.6 cm/sec LVOT Max Jeromy: 108.4 cm/sec Ao V2 mean: 98.0 cm/sec LV V1 max P.7 mmHg Ao max P.7 mmHg LV V1 VTI: 22.8 cm Ao mean P.4 mmHg sev ratio: 0.72 Ao V2 VTI: 31.5 cm MV E max jeromy: 48.8 cm/sec PA Accel Time: 0.13 sec MV A max jeromy: 91.1 cm/sec MV E/A: 0.54 Lat Peak E' Jeromy: 3.4 cm/sec E/E' lat: 14.5 MV dec time: 0.18 sec MV P1/2t: 53.5 msec MV P1/2t max jeromy: 49.5 cm/sec MVA(P1/2t): 4.1 cm2 Reading Physician:12:49 PM
== END ==
PROVIDERS: Family Provider Physician Assistant Medical; PCP Physician Assistant Medical; Visit Provider Internal Medicine Cardiovascular Disease
DX: I50.22 Chronic systolic (congestive) heart failure (principal)
CPT/HCPCS: 93306

== ENCOUNTER 2020-10-28 20:34 | Emergency (ER) | payer BC, MEDICARE, SELFPAY ==
[2018-02-11 17:18] VITALS: BMI 27.5
[2020-10-28 20:52] VITALS: BP 183/89; PULSE 90; RESP 16; TEMP 38.9; O2SAT 99; BMI 31.0
--- NOTE | 2020-10-28 20:58 | DI.RAD.S_ITS ---
PROCEDURE: XR CHEST 1V INDICATIONS: suspected sepsis TECHNIQUE: One view of the chest was acquired. COMPARISON: [facility], CR, XR CHEST 1V, 04/29/2018, 15:59. FINDINGS: Surgical changes and devices: None. Lungs and pleura: Lungs are clear. No pleural effusions or pneumothorax. Mediastinum: Mediastinal contours appear normal. Heart size is normal. Bones and chest wall: No suspicious bony lesions. Overlying soft tissues appear unremarkable. Generalized decrease in osseous mineralization noted. IMPRESSION: No acute cardiopulmonary findings Approved by: Julio César Chen M.D. on 10/28/2020 at 21:25
[2020-10-28] MEDS: SODIUM CHLORIDE 0.9% 1,000 ML 1000 ML IV (21:37)
[2020-10-28 21:52] LABS: Add Manual Diff / Slide Review NO; Basophils Absolute Auto 100 /uL (0-100); Basophils Percent Auto 0.8 % (0-2); Eosinophils Absolute Auto 300 /uL (0-450); Eosinophils Percent Auto 2.1 % (2-4); Hematocrit 29.5 % (41-53); Hemoglobin 9.9 g/dL (13.5-17.5); Lymphocytes Absolute Auto 1000 /uL (1100-4500); Lymphocytes Percent Auto 7.8 % (25-40); Mean Corpuscular HGB Conc 33.7 % (30-36); Mean Corpuscular Hemoglobin 30.6 PG (26-34); Mean Corpuscular Volume 90.9 fL (80-100); Monocytes Absolute Auto 1000 /uL (0-900); Monocytes Percent Auto 8.3 % (3-14); Neutrophils Absolute Auto 10100 /uL (1500-7000); Platelet Count 152 X10^3/uL (150-400); Red Blood Cell Count 3.24 X10^6/uL (4.5-5.9); Red Cell Distribution Width 13.9 % (11.6-14.8); White Blood Cell Count 12.4 X10^3/uL (4.5-11.0)
[2020-10-28 21:58] LABS: Lactate (Lactic Acid) 1.1 mmol/L (0.7-2.1)
[2020-10-28 21:59] LABS: Alanine Aminotransferase 91 IU/L (<50); Albumin 4.1 g/dL (3.5-5.0); Albumin Globulin Ratio 1.1 (1.0-2.8); Alkaline Phosphatase 132 U/L (38-126); Aspartate Aminotransferase 83 IU/L (17-59); BUN Creatinine Ratio 16.6 (6-22); Bilirubin Total 0.4 mg/dL (0.2-1.3); Blood Urea Nitrogen 42 mg/dL (9-20); Calcium 9.3 mg/dL (8.4-10.2); Carbon Dioxide 20 mmol/L (22-32); Chloride 105 mmol/L (98-107); Estimated Glomerular Filt Rate 25.7 mL/min (>60); Globulin 3.9 g/dL (1.7-4.1); Glucose 154 mg/dL (80-110); HEMOLYSIS < 15 (0-50); Lipase 330 U/L (23-300); Sodium 135 mmol/L (137-145)
[2020-10-28 22:06] LABS: Potassium 5.4 mmol/L (3.4-5.1)
[2020-10-28 22:16] LABS: Procalcitonin 0.13 ng/mL (<0.5)
[2020-10-28] MEDS: ACETAMINOPHEN 325 MG TABLET 975 MG PO (22:35)
[2020-10-28 22:47] LABS: COVID19 - ADMIT (NP swab/PCR) Negative (Negative)
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
[2020-10-29 01:01] VITALS: BP 162/80; PULSE 80; RESP 24; O2SAT 96
== END 2020-10-29 01:37 | disposition home or self-care (01) ==
PROVIDERS: Emergency Provider Emergency Medicine; Family Provider Physician Assistant Medical; PCP Family Medicine
DX: K52.9 Noninfective gastroenteritis and colitis, unspecified (principal); R50.9 Fever, unspecified; Z20.822 Contact with and (suspected) exposure to COVID-19
CPT/HCPCS: 36415; 71045; 80053; 81003; 83605; 83690; 84145; 85025; 87040; 87635; 96360; 99284; C9803

== ENCOUNTER 2023-07-12 11:15 | Inpatient (IN) | payer BC, MEDICARE, SELFPAY ==
[2018-02-11 17:18] VITALS: BMI 27.5
[2023-07-12] VITALS (14 sets, daily range): BP systolic 114–146; BP diastolic 58–72; PULSE 67–73; RESP 16–23; TEMP 36.8–37.1; O2SAT 97–99; BMI 28.8
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
[2023-07-12] MEDS: TET,DIPH,PERTUSS(ACELL),VAC/PF 0.5 ML SYRINGE IM (12:00)
[2023-07-12] MEDS: CLINDAMYCIN 900 MG/50 ML PIGGYBACK 50 MG IV (12:00)
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
[2023-07-12 12:21] LABS: Add Manual Diff / Slide Review NO; Basophils Absolute Auto 100 /uL (0-100); Eosinophils Absolute Auto 300 /uL (0-450); Eosinophils Percent Auto 4.3 % (2-4); Hemoglobin 8.5 g/dL (13.5-17.5); Lymphocytes Absolute Auto 900 /uL (1100-4500); Mean Corpuscular HGB Conc 34.1 % (30-36); Mean Corpuscular Hemoglobin 30.3 PG (26-34); Mean Corpuscular Volume 88.7 fL (80-100); Monocytes Absolute Auto 800 /uL (0-900); Monocytes Percent Auto 10.4 % (3-14); Neutrophils Absolute Auto 5700 /uL (1500-7000); Neutrophils Percent Auto 72.3 % (50-75); Platelet Count 240 X10^3/uL (150-400); Red Blood Cell Count 2.82 X10^6/uL (4.5-5.9); Red Cell Distribution Width 14.7 % (11.6-14.8); White Blood Cell Count 7.9 X10^3/uL (4.5-11.0)
[2023-07-12 12:31] LABS: Alanine Aminotransferase 41 IU/L (<50); Alkaline Phosphatase 96 U/L (38-126); Aspartate Aminotransferase 45 IU/L (17-59); Bilirubin Total 0.6 mg/dL (0.2-1.3); Calcium 9.1 mg/dL (8.4-10.2); Carbon Dioxide 14 mmol/L (22-32); Chloride 106 mmol/L (98-107); Globulin 4.1 g/dL (1.7-4.1); Glucose 221 mg/dL (80-110); Lipase 575 U/L (23-300); Sodium 133 mmol/L (137-145); Total Protein 8.1 g/dL (6.3-8.2)
[2023-07-12 12:33] LABS: HEMOLYSIS 110 (0-50)
[2023-07-12 12:46] LABS: Estimated Glomerular Filt Rate 12 mL/min (>60)
[2023-07-12] MEDS: SODIUM CHLORIDE 0.9% 1,000 ML 1000 ML IV (12:46)
[2023-07-12 12:47] LABS: Blood Urea Nitrogen 119 mg/dL (9-20)
--- NOTE | 2023-07-12 12:50 | DI.CT.S_ITS ---
PROCEDURE: CT KIDNEY URETER BLADDER (KUB) INDICATIONS: wound rigth abd, acute on chronic uday TECHNIQUE: Axial sections were acquired from the lung bases to the pubic symphysis. Coronal and sagittal reformats were performed. For radiation dose reduction, the following was used: automated exposure control, adjustment of mA and/or kV according to patient size. COMPARISON: None. FINDINGS: Image quality: Diagnostic. Lower Chest: Patchy consolidation in the lingula. Emphysema. URINARY: Right Kidney: No stones or hydronephrosis. Renal cysts. Atrophic. Right Ureter: No hydroureter. Left Kidney: No stones or hydronephrosis. Atrophic. Left Ureter: No hydroureter. Bladder: Normal wall thickness. No stones. ABDOMEN: Liver: No contour-deforming solid mass. Cirrhosis. Gallbladder: Cholelithiasis without wall thickening or adjacent fat stranding to suggest acute cholecystitis. Biliary ducts: No biliary dilation. Pancreas: No ductal dilation. Spleen: Size is within normal limits. Adrenal Glands: No adrenal nodules. Stomach and Bowel: Normal colonic caliber, without significant wall thickening. Normal appendix. Colonic diverticulosis without evidence of diverticulitis. Peritoneum: No abnormal intraperitoneal fluid. No free air. Ventral Wall: Skin thickening and subcutaneous edema overlying the right lateral abdominal wall. No associated abscess. Abdominal Nodes: No enlarged retroperitoneal or mesenteric lymph nodes. Vessels: Aorta and inferior vena cava are normal in size. PELVIS: Pelvic Organs: Unremarkable. Pelvic Nodes: Unremarkable. Miscellaneous: No inguinal hernias are seen. Bones: Unremarkable. IMPRESSION: Cellulitis of the right lateral abdominal wall, without abscess. Cirrhosis. Patchy consolidation of the lingula, suggestive of mild infection. Cholelithiasis without wall thickening or adjacent fat stranding to suggest acute cholecystitis. Dictated by: Dwain Grier M.D. on 07/12/2023 at 13:28 Approved by: Dwain Grier M.D. on 07/12/2023 at 13:30
--- NOTE | 2023-07-12 13:58 | PC.NURSE ---
Per pharmacy [facility] is on national backorder. Provider Benito made aware and order changes per MAY.
[2023-07-12] MEDS: CALCIUM GLUCONATE 4.65 MEQ in SODIUM CHLORIDE 0.9% 50 ML 180 MEQ IV (14:06)
[2023-07-12] MEDS: SODIUM POLYSTYRENE SULFON/SORB 15 GM/60 ML CUP 30 GM PO (14:06)
[2023-07-12] MEDS: SODIUM BICARB 8.4% SYRINGE 90 MEQ IV (14:12)
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
[2023-07-12 15:41] LABS: BUN Creatinine Ratio 24.3 (6-22); Calcium 8.7 mg/dL (8.4-10.2); Carbon Dioxide 16 mmol/L (22-32); Chloride 107 mmol/L (98-107); Estimated Glomerular Filt Rate 13 mL/min (>60); Glucose 214 mg/dL (80-110); HEMOLYSIS < 15 (0-50); Potassium 5.3 mmol/L (3.4-5.1); Sodium 136 mmol/L (137-145)
[2023-07-12 15:44] LABS: Blood Urea Nitrogen 114 mg/dL (9-20)
[2023-07-12] MEDS: cefTRIAXone 2,000 MG in SODIUM CHLORIDE 0.9% 100 ML 200 MG IV (17:07)
[2023-07-12] MEDS: SODIUM CHLORIDE 0.9% 1,000 ML 100 ML IV (17:07)
[2023-07-12 18:24] LABS: BUN Creatinine Ratio 24.4 (6-22); Calcium 8.7 mg/dL (8.4-10.2); Carbon Dioxide 16 mmol/L (22-32); Chloride 107 mmol/L (98-107); Estimated Glomerular Filt Rate 13 mL/min (>60); Glucose 243 mg/dL (80-110); HEMOLYSIS < 15 (0-50); Potassium 5.3 mmol/L (3.4-5.1); Sodium 136 mmol/L (137-145)
[2023-07-12 18:26] LABS: Blood Urea Nitrogen 111 mg/dL (9-20)
[2023-07-12 20:09] LABS: BUN Creatinine Ratio 24.3 (6-22); Calcium 8.6 mg/dL (8.4-10.2); Carbon Dioxide 16 mmol/L (22-32); Chloride 107 mmol/L (98-107); Estimated Glomerular Filt Rate 14 mL/min (>60); Glucose 263 mg/dL (80-110); HEMOLYSIS < 15 (0-50); Sodium 135 mmol/L (137-145)
[2023-07-12 20:10] LABS: Potassium 5.5 mmol/L (3.4-5.1)
[2023-07-12 20:11] LABS: Blood Urea Nitrogen 108 mg/dL (9-20)
[2023-07-12 20:13] LABS: MRSA (Nasal) PCR NOT DETECTED (Not Detect)
[2023-07-12] MEDS: INSULIN LISPRO 100 UNIT/ML 3ML VIAL SUBCUT (21:53)
[2023-07-12] MEDS: HEPARIN 5,000 UNIT/ML VIAL 5000 UNIT SUBCUT (21:57)
[2023-07-12] MEDS: CLINDAMYCIN 600 MG/50 ML PIGGYBACK 50 MG IV (21:58)
[2023-07-12 23:42] LABS: BUN Creatinine Ratio 25.4 (6-22); Blood Urea Nitrogen 104 mg/dL (9-20); Calcium 8.4 mg/dL (8.4-10.2); Carbon Dioxide 16 mmol/L (22-32); Chloride 107 mmol/L (98-107); Estimated Glomerular Filt Rate 15 mL/min (>60); Glucose 290 mg/dL (80-110); HEMOLYSIS < 15 (0-50); Potassium 5.1 mmol/L (3.4-5.1); Sodium 135 mmol/L (137-145)
[2023-07-13] VITALS (15 sets, daily range): BP systolic 128–168; BP diastolic 65–85; PULSE 68–74; RESP 14–18; TEMP 36.3–37.2; O2SAT 95–99; BMI 28.8
--- NOTE | 2023-07-13 | PATH_ITS ---
[facility] Accession Number: [id number] No. of containers..01 Tissue . 01 Material submitted: . flank - RIGHT FLANK TISSUE . 01 Diagnosis: RIGHT FLANK TISSUE, DEBRIDEMENT: Fragments of fibroconnective and muscular tissue with acute suppurative and necrotizing inflammation with abscess formation. Negative for malignancy. MRV 07/20/2023 1622 Local . 01 Electronically signed: . Nehemias Loyd MD, Pathologist NPI- [id number] . 01 Gross description: . RIGHT FLANK TISSUE: Received in formalin are 2 fragments of payton soft tissue measuring 3.5 x 1.2 x 0.6 cm in aggregate. Tissue is inked. Specimen is sectioned and submitted in its entirety in 2 cassettes. /HIRAL 07/16/2023 1852 Local . 01 Pathologist provided ICD-10: A41.9 . 01 CPT . 866816 Specimen Comment: A courtesy copy of this report has been sent to [facility] Performed at: 01 [facility] [address] [place] [address], [place], [place] [id number] MD Omar Lindquist MD Phone: [phone]
--- NOTE | 2023-07-13 01:17 | PC.NURSE ---
Addendum entered by Lissa Garcia R.N. 07/13/23 04:17: Bibiana drsg saturated with serosanguinous drainage, drsg changed. Ice pack placed. BP 146/76, HR 69. 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 Wound on abdomen is covered w/ bibiana antoineg, CDI. IV abx & fluids infusing as ordered. Patient requested to have indwelling catheter removed, patient is ambulatory & states that he has no problem urinating on his own. MD Miranda OK'd álvarez removal. Oriented to room & call-light. NPO at midnight. Plan of care ongoing.
[2023-07-13] MEDS: CLINDAMYCIN 600 MG/50 ML PIGGYBACK 50 MG IV ×3 (03:04→19:57)
[2023-07-13] MEDS: SODIUM CHLORIDE 0.9% 1,000 ML 100 ML IV ×2 (03:04→14:58)
[2023-07-13 05:25] LABS: Add Manual Diff / Slide Review NO; Basophils Absolute Auto 100 /uL (0-100); Basophils Percent Auto 1.1 % (0-2); Eosinophils Absolute Auto 300 /uL (0-450); Eosinophils Percent Auto 4.3 % (2-4); Hematocrit 23.6 % (41-53); Lymphocytes Absolute Auto 1000 /uL (1100-4500); Lymphocytes Percent Auto 16.5 % (25-40); Mean Corpuscular Hemoglobin 29.8 PG (26-34); Mean Corpuscular Volume 87.7 fL (80-100); Monocytes Absolute Auto 700 /uL (0-900); Monocytes Percent Auto 12.2 % (3-14); Neutrophils Absolute Auto 4000 /uL (1500-7000); Neutrophils Percent Auto 65.9 % (50-75); Platelet Count 228 X10^3/uL (150-400); Red Blood Cell Count 2.69 X10^6/uL (4.5-5.9); Red Cell Distribution Width 14.5 % (11.6-14.8)
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
[2023-07-13] MEDS: INSULIN LISPRO 100 UNIT/ML 3ML VIAL SUBCUT ×4 (08:43→20:24)
--- NOTE | 2023-07-13 10:22 | PC.NURSE ---
Addendum entered by Shelbie Finn R.N. 07/13/23 18:15: Patient left for surgery at 1500 and he is back around 1725. He has a bulky dressing to his r.lower abdomen that is cdi. Plan is for patient to do his own dressing changes daily or as needed at home. He is eating some dinner now and denies any discomfort. Resting comfortably. Original Note: Patients blood sugar 277, 3u of insulin given, He has been npo for his surgery to r.lower abdominal wound. Area is open and draining some. Dressing is intact to area. Up to void 350cc of light colored urine. He is resting comfortably.
--- NOTE | 2023-07-13 13:55 | DIET.CONS2 ---
Dietary Inpatient Consultation Note Admission Date: 07/12/2023 15:03 67 y M admitted for abdominal wound. Nutrition consulted for diabetes educ regarding re-using insulin needles and injecting in same spot. Met with pt at bedside. Pt reports hospitalist provided educ on rotating injection sites and using new needles every time. Reviewed with pt. He is interested in outpatient diabetes educ. Referral request sent to PCP. Pt open to nutrition educ inpatient, but not at this time. Will assess for opportunity to provide additional nutrition educ. Diet: 07/13/23 00:01 NPO Diet Diet Modifications: NPO Type: NPO except for Meds Nutrition Percent Meal Consumed 100% 07/12/23 18:00 Electronically Signed by: Shayy Terrazas 07/13/23 13:55 Clinical Dietitian [address] [address]
--- NOTE | 2023-07-13 14:25 | PM.EVENT ---
Event Note Date Patient Seen: 07/13/23 Time Patient Seen: 14:25 Event Note (Rapid Response, Code, or fall): Right lower abdominal subcutaneous abscess, likely infected hematoma. We discussed the risks and benefits of incision and drainage and washout in the operating room. I will either pack the wound or place a wound VAC. He understands that he will need continued wound care for some period of time. He understands risks and benefits and he would like to proceed with surgery.
[2023-07-13] MEDS: LACTATED RINGERS 1,000 ML 42 ML IV (15:33)
--- NOTE | 2023-07-13 15:43 | CM.DANOTE ---
Patient is a 67 yo male who was admitted INPT status on 07/12/23 for failed outpt abx and HAILE. Pt has MCR A Only and [facility] for insurance and his PCP is Kwan Harris. EMR was reviewed. Per MD, pt with hx of hypertension, DM and failed outpt abx for abdominal wound and HAILE and getting IV-Abx. Per Surgeon Consult, recommendation of I&D with possible wound packing and wound vac and likely will need ongoing wound care after discharge. SW attempted to meet bedside with pt but off floor in the OR for I&D. Per CASTING TESTER, pt was fairly independent in room this morning but prior to being taken to OR pt seemed either forgetful or potential of grogginess from medications and did not seem steady on his feet. Pt lives in [place] alone in a mobile home alone and is still working at baseline and typically is independent with ADLs. Band Splicer consult bedside and pt acknowledged education on not reusing insulin needles and changing location of insulin administration. Band Splicer also will discuss wound healing prior to discharge. SW called [facility] and confirmed that pt is still established with PCP Dr. Harris and they are now alerted to pt's admission and will attempt to get post-hospital follow up appointment. Pt just saw his PCP 07/06/23 for his wound and was prescribed the oral abx. Plan: SW to follow closely after I&D this afternoon to determine if pt has wound vac at d/c and to help establish outpt wound clinic follow up and determine if Wound Consult needed from [facility] prior to d/c and if PT eval needed if pt remains unsteady on his feet. BELINDA Abdullahi Discharge Planning/Care Management CM Discharge Assessment Start: 07/13/23 15:23 Freq: Status: Active Protocol: Document 07/13/23 15:23 BF (Rec: 07/13/23 15:27 BF [id number]) Discharge Planning Assessment Assigned Melt House Centrifugal Operator BELINDA Gutierrez DPOA/Assigned Designee Name none Advance Directives? No Advance Directives on File No History Provided By Patient,Medical Record Has Patient been admitted in last 30 No days? Prior Living Arrangements Mobile home Household Members none Type of transporation used prior to Drives own vehicle admit Independent with ADL's Yes Is patient alert and oriented? Yes Caregiver for Another No Patient/Family Preference Home with Home Health Barriers to Discharge Yes Discharge Plan Home with Home Health Transportation Arrangement Patient drove himself to hospital and is hopeful to drive himself home. Additional Comment Patient has ex- and two adult sons that reside in [facility]. Review Status In Process Please Provide Date Initial DC 07/13/23 Assessment Was Performed Next Review Type Continued Stay Review
[2023-07-13] MEDS: ONDANSETRON 4 MG/2 ML INJ IV (15:50)
[2023-07-13] MEDS: cefTRIAXone 2,000 MG in SODIUM CHLORIDE 0.9% 100 ML 200 MG IV (16:06)
--- NOTE | 2023-07-13 16:55 | SUR.OPER ---
Lateral on a OR bed, head on pillow, bottom leg bent with a pillow between the knees, upper leg straight and supported with pillows. Upper arm supported by pillows and secured over bottom arm to padded arm board. Safety belt at hip, tape over blanket lower legs, tape over gown upper body.
[2023-07-13] MEDS: BUPIVACAINE 0.5% (PF) 30 ML VIAL INJ (16:59)
--- NOTE | 2023-07-13 17:12 | P.OP_ITS ---
Operative Date/Time/Diagnoses Date of procedure: 07/13/23 Time of procedure: 17:12 Pre-op diagnosis: Right flank subcutaneous abscess Post-op diagnosis: same Procedure & Clinicians Procedure: Debridement of right flank subcutaneous abscess Same procedure as scheduled: Yes Surgeon: Mehdi Ruffin Septic Pump Truck Driver: Jaquan Diop Anesthesia Type: MAC +/- Operative Notes Procedure in detail: The patient is a 67-year-old man who presented with a right flank abscess. He was consented for an incision and drainage in the operating room with sedation. The patient was brought to the operating room and placed in a semi-lateral position. Sedation was administered. Dressing was removed in the right flank abscess was prepped with Betadine. Drapes were applied. A time-out was performed. The wound was approximately 8 x 10 cm and contained some necrotic tissue around the edges which was sharply debrided. The center contained indurated adipose tissue. A culture swab was inserted into the deepest aspect of the wound. Some segments of tissue were removed and sent to path to make sure there was no malignancy or other abnormal tissue. After irrigation with some warm saline it appeared that the majority of the tissue remaining in the wound was viable adipose tissue. We then packed the wound with a single dry Kerlix gauze followed by several additional layers of absorbent gauze. Patient was awakened and brought to recovery room. EBL: 5 mL Specimens: Right flank wound tissue and a wound culture Post-operative Condition: stable Disposition: PACU
[2023-07-13] MEDS: carvediloL 12.5 MG TABLET PO (20:22)
[2023-07-13] MEDS: INSULIN GLARGINE 100 UNIT/ML 3ML PEN 34 UNIT SUBCUT (20:22)
[2023-07-13] MEDS: GABAPENTIN 100 MG CAPSULE PO (20:22)
[2023-07-13] MEDS: ACETAMINOPHEN 325 MG TABLET 650 MG PO (21:17)
[2023-07-14] VITALS (7 sets, daily range): BP systolic 139–168; BP diastolic 73–92; PULSE 67–77; RESP 16–18; TEMP 36.1–36.9; O2SAT 96–99
[2023-07-14] MEDS: CLINDAMYCIN 600 MG/50 ML PIGGYBACK 50 MG IV ×3 (03:01→20:59)
[2023-07-14 05:17] LABS: Add Manual Diff / Slide Review NO; Basophils Absolute Auto 0 /uL (0-100); Basophils Percent Auto 0.8 % (0-2); Eosinophils Absolute Auto 200 /uL (0-450); Eosinophils Percent Auto 4.3 % (2-4); Hemoglobin 7.9 g/dL (13.5-17.5); Lymphocytes Absolute Auto 1100 /uL (1100-4500); Lymphocytes Percent Auto 21.4 % (25-40); Mean Corpuscular HGB Conc 34.2 % (30-36); Mean Corpuscular Hemoglobin 29.9 PG (26-34); Mean Corpuscular Volume 87.5 fL (80-100); Monocytes Absolute Auto 500 /uL (0-900); Monocytes Percent Auto 10.2 % (3-14); Neutrophils Absolute Auto 3300 /uL (1500-7000); Neutrophils Percent Auto 63.3 % (50-75); Platelet Count 244 X10^3/uL (150-400); Red Blood Cell Count 2.63 X10^6/uL (4.5-5.9); Red Cell Distribution Width 14.4 % (11.6-14.8); White Blood Cell Count 5.2 X10^3/uL (4.5-11.0)
[2023-07-14 05:32] LABS: BUN Creatinine Ratio 23.1 (6-22); Blood Urea Nitrogen 68 mg/dL (9-20); Calcium 8.9 mg/dL (8.4-10.2); Carbon Dioxide 21 mmol/L (22-32); Chloride 112 mmol/L (98-107); Estimated Glomerular Filt Rate 22 mL/min (>60); Glucose 194 mg/dL (80-110); HEMOLYSIS < 15 (0-50); Potassium 4.8 mmol/L (3.4-5.1); Sodium 140 mmol/L (137-145)
[2023-07-14] MEDS: INSULIN LISPRO 100 UNIT/ML 3ML VIAL SUBCUT ×4 (08:16→21:00)
[2023-07-14] MEDS: FUROSEMIDE 40 MG TABLET PO (08:16)
[2023-07-14] MEDS: AMLODIPINE 5 MG TABLET PO (08:16)
[2023-07-14] MEDS: carvediloL 12.5 MG TABLET PO ×2 (08:16→20:59)
[2023-07-14] MEDS: ACETAMINOPHEN 325 MG TABLET 650 MG PO (08:16)
--- NOTE | 2023-07-14 08:26 | PC.NURSE ---
Addendum entered by Shelbie Finn R.N. 07/14/23 14:46: Patient has an order for a wound consult. We are doing wet to dry dressing changes to r.lower abdominal wound. Original Note: Patients dressing is cdi to r.lower abdomen/thigh area. Given tylenol this morning for any discomfort to area. Blood Sugar 194, 3u of insulin given. Patient is resting and will be eating breakfast soon.
--- NOTE | 2023-07-14 10:27 | CM.DPC ---
DCP Cont: Per Surgeon, pt was taken to OR yesterday and no wound vac at this time but did packing and culture swabs and currently on IV-Abx. Per MD, unclear if pt will be ready for discharge yet today or next couple days. NOE met bedside with pt and explained role and he confirms he still drives, ambulates independently at baseline, works some at [employer]. Pt states his Dtr and KEITH live in [facility] and can assist if needed. Pt denies any hx of HH or SNF. SW discussed likely outpt wound clinic needs and pt lives in [place] and thinks his preference would be [facility] in [place] but if needed he could come to the [facility] if needed. SW discussed HH RN and services and frequency and pt currently is hesitant about a HH RN and prefers outpt follow up. Declines HH referral yet at this time. Pt does not anticipate any further needs besides outpt wound clinic referral. SW called [facility] and provided new referral and faxed clinicals to review for referral to [phone] along with a copy of his insurance card. Plan: SW to follow for wound care orders/recommendations for dressing changes and further discussion of HH RN and to confirm pt ambulating independently still and any further identified discharge planning needs. BELINDA Abdullahi
--- NOTE | 2023-07-14 14:11 | PM.CALLCOV.1 ---
Call Coverage Note Note Date of Patient Contact: 07/14/23 Time of Patient Contact: 14:11 Narrative of Care Provided: Postoperative day 1 status post Debridement of right flank subcutaneous abscess. Operative dressings removed demonstrate a 8 x 10 x4 cm wound clean. Discussed with hospitalist recommendation for wound VAC therapy and wound care follow.
[2023-07-14] MEDS: cefTRIAXone 2,000 MG in SODIUM CHLORIDE 0.9% 100 ML 200 MG IV (15:29)
--- NOTE | 2023-07-14 16:42 | DIET.CONS ---
Dietary Consultation Note Admission Date: 07/12/2023 15:03 Assessment: 67 y M admitted for abdominal wound. Nutrition consult for abdominal wound. Also presents with HAILE on CKD (possible stage 4), CHF, DM2, insulin dependent. Met with pt at bedside for f/u on inpatient diabetic educ and nutrition for wound healing. Patient with no previous DM nutrition r/t educ. Was not aware of negative consequences associated with re-using needles and injecting in same spot. 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 Would like to have breakfast earlier in day, but reports difficulty feeling motivated to get out of bed. Is opening to considering other options available at store in place of fast food, i.e. prepared chicken and salads, prepared options in deli, protein granola bars. Ht: 175.26 cm Wt: 88.451 kg BMI: 28.8 UBW: no recent weight per chart Last BM: 07/13/23 (07/13/23 15:21) MNA: 14 Ernesto Score: 19 Diet: 07/14/23 Breakfast Carbohydrate Consistent Diet Diet Modifications: Carbohydrate level: Medium (3 CHO) Reflex DM orders: No Food Texture: Level 7 - Regular Liquid Consistency: Level 0 - Thin Nutrition Percent Meal Consumed 100% 07/12/23 18:00 Labs: RBC 2.63 X10^6/uL (4.5-5.9) L 07/14/23 04:40 Hgb 7.9 g/dL (13.5-17.5) L 07/14/23 04:40 Hct 23.0 % (41-53) L 07/14/23 04:40 Creatinine 2.94 mg/dL (0.66-1.25) H 07/14/23 04:40 Nutrition Diagnosis: 1. Nutrition r/t knowledge deficit related to no previous diabetes nutrition educ as evidenced by pt report 2. Increased protein needs r/t to wound healing as evidenced by abdominal wound Interventions: 1. Overview of MNT for DM w/ CKD 2. Gorge BID 3. Maintain glycemic control for wound healing EER: 8729-9290 kcals/day (22-25 kcals per kg per BMI) 60-70 grams protein (.8-1.0 g/kg of adjusted IBW per HAILE on CKD w/ DM and wound healing) Monitoring/Evaluations: BG, gorge tolerance, po intakes Electronically Signed by: Shayy Terrazas 07/14/23 16:42 Clinical Diet[address] [address]
[2023-07-14] MEDS: INSULIN LISPRO 100 UNIT/ML 3ML VIAL 10 UNIT SUBCUT (17:10)
[2023-07-14] MEDS: ATORVASTATIN 20 MG TABLET 40 MG PO (17:12)
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
[2023-07-14] MEDS: GABAPENTIN 100 MG CAPSULE PO (20:59)
[2023-07-14] MEDS: INSULIN GLARGINE 100 UNIT/ML 3ML PEN 34 UNIT SUBCUT (21:03)
[2023-07-15] VITALS (8 sets, daily range): BP systolic 132–169; BP diastolic 72–90; PULSE 69–94; RESP 16–18; TEMP 36.6–37.1; O2SAT 94–98
[2023-07-15] MEDS: CLINDAMYCIN 600 MG/50 ML PIGGYBACK 50 MG IV ×3 (04:17→21:33)
[2023-07-15 06:42] LABS: Add Manual Diff / Slide Review NO; Basophils Absolute Auto 100 /uL (0-100); Basophils Percent Auto 1.3 % (0-2); Eosinophils Absolute Auto 300 /uL (0-450); Eosinophils Percent Auto 4.4 % (2-4); Hematocrit 23.5 % (41-53); Lymphocytes Absolute Auto 1300 /uL (1100-4500); Lymphocytes Percent Auto 21.2 % (25-40); Mean Corpuscular HGB Conc 34.2 % (30-36); Mean Corpuscular Hemoglobin 30.1 PG (26-34); Mean Corpuscular Volume 88.2 fL (80-100); Monocytes Absolute Auto 700 /uL (0-900); Monocytes Percent Auto 10.9 % (3-14); Neutrophils Absolute Auto 3700 /uL (1500-7000); Neutrophils Percent Auto 62.2 % (50-75); Platelet Count 258 X10^3/uL (150-400); Red Blood Cell Count 2.67 X10^6/uL (4.5-5.9); Red Cell Distribution Width 14.3 % (11.6-14.8)
[2023-07-15 07:00] LABS: BUN Creatinine Ratio 19.9 (6-22); Blood Urea Nitrogen 58 mg/dL (9-20); Carbon Dioxide 22 mmol/L (22-32); Chloride 110 mmol/L (98-107); Estimated Glomerular Filt Rate 23 mL/min (>60); Glucose 183 mg/dL (80-110); HEMOLYSIS < 15 (0-50); Potassium 4.6 mmol/L (3.4-5.1); Sodium 139 mmol/L (137-145)
--- NOTE | 2023-07-15 08:00 | PC.NURSE ---
Late Entry for 07/14/23- Patients open wound to r.lower abdomen/thigh area beefy red in the center, with small amount of old tissue around the edges. Dressed with wet to dry dressing, dry gauze, and abd pad.
--- NOTE | 2023-07-15 08:04 | PC.NURSE ---
Patient is resting and eating his breakfast, blood , patient will be getting insulin this am. He is sba to the bathroom. Dressing is cdi.
[2023-07-15] MEDS: carvediloL 12.5 MG TABLET PO ×2 (08:34→21:33)
[2023-07-15] MEDS: INSULIN LISPRO 100 UNIT/ML 3ML VIAL SUBCUT ×4 (08:34→21:31)
[2023-07-15] MEDS: FUROSEMIDE 40 MG TABLET PO (08:34)
[2023-07-15] MEDS: AMLODIPINE 5 MG TABLET PO (08:34)
[2023-07-15] MEDS: INSULIN LISPRO 100 UNIT/ML 3ML VIAL 10 UNIT SUBCUT ×3 (08:35→17:06)
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
--- NOTE | 2023-07-15 14:18 | CM.DPC ---
DCP Cont. Reviewed EMR and team rounds for status updates. Plan is to continue IV ABO's through tomorrow, cultures remain pending. Wound Care did a consult today, there is no recommendation for a wound vac at this time, however they did recommend wound care instructions for dressing changes for OP [facility]. Will continue to follow for possible d/c home tomorrow, 07/15.
--- NOTE | 2023-07-15 15:51 | PC.NURSE ---
Dressing change done; wet to dry. First dressing change of day. Waited to perform task until wound care provider rounded on patient and looked at wound to see if any new orders where to be carried out. Nothing new at this time, will cont. with plan of care.
[2023-07-15] MEDS: cefTRIAXone 2,000 MG in SODIUM CHLORIDE 0.9% 100 ML 200 MG IV (16:06)
[2023-07-15] MEDS: ATORVASTATIN 20 MG TABLET 40 MG PO (17:08)
[2023-07-15] MEDS: GABAPENTIN 100 MG CAPSULE PO (21:33)
[2023-07-15] MEDS: INSULIN GLARGINE 100 UNIT/ML 3ML PEN 34 UNIT SUBCUT (21:34)
[2023-07-16] VITALS: BP 160/88; PULSE 88; RESP 18; TEMP 37; O2SAT 96
[2023-07-16] MEDS: CLINDAMYCIN 600 MG/50 ML PIGGYBACK 50 MG IV (05:10)
[2023-07-16 05:15] VITALS: BP 155/83; PULSE 84; RESP 17; TEMP 36.7; O2SAT 96
[2023-07-16] MEDS: INSULIN LISPRO 100 UNIT/ML 3ML VIAL SUBCUT (08:55)
[2023-07-16] MEDS: INSULIN LISPRO 100 UNIT/ML 3ML VIAL 10 UNIT SUBCUT (08:56)
[2023-07-16] MEDS: carvediloL 12.5 MG TABLET PO (09:02)
[2023-07-16] MEDS: AMLODIPINE 5 MG TABLET PO (09:02)
[2023-07-16] MEDS: FUROSEMIDE 40 MG TABLET PO (09:02)
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
--- NOTE | 2023-07-16 10:37 | CM.DPC ---
DCP Cont. Reviewed EMR and team rounds for status updates. Pt has been medically cleared for d/c home today, family will transport. No further DCP needs indicated at this time.
--- NOTE | 2023-07-16 11:19 | PC.NURSE ---
Day shift: Paperwork signed and all questions answered. Pt has all personal belongings. Pt being shown where wound care is located in the other part of hospital upon discharge. MD scripts sent electronic to Pt's pharmacy. Left unit via WC at approx [phone] and taken by JUAN Thomson.
== END 2023-07-16 11:21 | disposition home or self-care (01) | DRG 571 ==
LOC: ED 14:27 → AC 15:05
PROVIDERS: Internal Medicine; Surgery; Admitting Provider Hospitalist; Emergency Provider Emergency Medicine; Family Provider Physician Assistant Medical; PCP Family Medicine; Referring Provider Emergency Medicine; Visit Provider Hospitalist
PROC: 0JB80ZZ Excision of Abdomen Subcutaneous Tissue and Fascia, Open Approach (ICD-10-PCS; principal; 2023-07-13 16:45)
DX: S31.104A Unspecified open wound of abdominal wall, left lower quadrant without penetration into peritoneal cavity, initial encounter (principal); E11.52 Type 2 diabetes mellitus with diabetic peripheral angiopathy with gangrene; L02.211 Cutaneous abscess of abdominal wall; I13.0 Hypertensive heart and chronic kidney disease with heart failure and stage 1 through stage 4 chronic kidney disease, or unspecified chronic kidney disease; N17.9 Acute kidney failure, unspecified; N18.4 Chronic kidney disease, stage 4 (severe); I50.20 Unspecified systolic (congestive) heart failure; E87.5 Hyperkalemia; I25.10 Atherosclerotic heart disease of native coronary artery without angina pectoris; B19.20 Unspecified viral hepatitis C without hepatic coma; E11.22 Type 2 diabetes mellitus with diabetic chronic kidney disease; X58.XXXA Exposure to other specified factors, initial encounter; Z23 Encounter for immunization; Z77.21 Contact with and (suspected) exposure to potentially hazardous body fluids; Z79.4 Long term (current) use of insulin
CPT/HCPCS: 36415; 74176; 80048; 80053; 82962; 83036; 83690; 85025; 87070; 87075; 87077; 87185; 87186; 87205; 87797; 90471; 93005; 96365; 96366; 96367; 99284; 99291; 90715; J0612; J0696; J1644; J1815; J2405; J2704; J3010

== ENCOUNTER → 2023-07-23 10:27 | Outpatient (CLI) | payer BC, SELFPAY ==
[2023-07-12 19:02] VITALS: BMI 28.8
== END ==
LOC: WC 10:51
PROVIDERS: PCP Family Medicine; Referring Provider Hospitalist; Visit Provider Surgery
DX: E11.628 Type 2 diabetes mellitus with other skin complications (principal); S31.109A Unspecified open wound of abdominal wall, unspecified quadrant without penetration into peritoneal cavity, initial encounter; R60.0 Localized edema; I25.10 Atherosclerotic heart disease of native coronary artery without angina pectoris; I10 Essential (primary) hypertension
CPT/HCPCS: 11042; 99203; 99213

== ENCOUNTER → 2023-07-29 10:12 | Outpatient (CLI) | payer BC, SELFPAY ==
[2023-07-12 19:02] VITALS: BMI 28.8
== END ==
PROVIDERS: PCP Family Medicine; Referring Provider Hospitalist; Visit Provider Surgery
DX: E11.628 Type 2 diabetes mellitus with other skin complications (principal); T81.89XA Other complications of procedures, not elsewhere classified, initial encounter; S31.109A Unspecified open wound of abdominal wall, unspecified quadrant without penetration into peritoneal cavity, initial encounter; R60.0 Localized edema; I10 Essential (primary) hypertension; B19.20 Unspecified viral hepatitis C without hepatic coma
CPT/HCPCS: 11042

== ENCOUNTER → 2023-08-06 10:26 | Outpatient (CLI) | payer BC, SELFPAY ==
[2023-07-12 19:02] VITALS: BMI 28.8
== END ==
PROVIDERS: PCP Family Medicine; Referring Provider Family Medicine; Visit Provider Surgery
DX: T81.89XA Other complications of procedures, not elsewhere classified, initial encounter (principal); S31.103A Unspecified open wound of abdominal wall, right lower quadrant without penetration into peritoneal cavity, initial encounter; E11.628 Type 2 diabetes mellitus with other skin complications; R60.0 Localized edema; I10 Essential (primary) hypertension; B18.2 Chronic viral hepatitis C
CPT/HCPCS: 11042

== ENCOUNTER → 2023-08-20 10:04 | Outpatient (CLI) | payer BC, SELFPAY ==
[2023-07-12 19:02] VITALS: BMI 28.8
== END ==
PROVIDERS: PCP Family Medicine; Referring Provider Hospitalist; Visit Provider Surgery
DX: S31.109A Unspecified open wound of abdominal wall, unspecified quadrant without penetration into peritoneal cavity, initial encounter (principal); E11.628 Type 2 diabetes mellitus with other skin complications; L92.9 Granulomatous disorder of the skin and subcutaneous tissue, unspecified; I10 Essential (primary) hypertension; B19.20 Unspecified viral hepatitis C without hepatic coma
CPT/HCPCS: 17250; 99213

== ENCOUNTER → 2023-08-27 10:13 | Outpatient (CLI) | payer BC, SELFPAY ==
[2023-07-12 19:02] VITALS: BMI 28.8
== END ==
PROVIDERS: PCP Family Medicine; Referring Provider Hospitalist; Visit Provider Physician Assistant
DX: E11.628 Type 2 diabetes mellitus with other skin complications (principal); T81.89XA Other complications of procedures, not elsewhere classified, initial encounter; S31.103A Unspecified open wound of abdominal wall, right lower quadrant without penetration into peritoneal cavity, initial encounter; N18.9 Chronic kidney disease, unspecified; I10 Essential (primary) hypertension; B18.2 Chronic viral hepatitis C
CPT/HCPCS: 11042; 99213

== ENCOUNTER → 2023-09-02 10:41 | Outpatient (CLI) | payer BC, SELFPAY ==
[2023-07-12 19:02] VITALS: BMI 28.8
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
== END ==
LOC: DIET 10:41
PROVIDERS: PCP Family Medicine; Referring Provider Family Medicine
DX: E11.9 Type 2 diabetes mellitus without complications (principal); Z79.4 Long term (current) use of insulin; Z71.3 Dietary counseling and surveillance
CPT/HCPCS: G0108

== ENCOUNTER → 2023-09-03 10:23 | Outpatient (CLI) | payer BC, SELFPAY ==
[2023-07-12 19:02] VITALS: BMI 28.8
== END ==
PROVIDERS: PCP Family Medicine; Referring Provider Hospitalist; Visit Provider Surgery
DX: E11.628 Type 2 diabetes mellitus with other skin complications (principal); T81.89XA Other complications of procedures, not elsewhere classified, initial encounter; S31.103A Unspecified open wound of abdominal wall, right lower quadrant without penetration into peritoneal cavity, initial encounter; R21 Rash and other nonspecific skin eruption; N18.9 Chronic kidney disease, unspecified; B18.2 Chronic viral hepatitis C
CPT/HCPCS: 11042; 99213

== ENCOUNTER → 2023-09-03 11:21 | Outpatient (CLI) | payer BC, SELFPAY ==
[2023-07-12 19:02] VITALS: BMI 28.8
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
== END ==
PROVIDERS: PCP Family Medicine; Referring Provider Family Medicine
DX: E11.9 Type 2 diabetes mellitus without complications (principal); Z79.4 Long term (current) use of insulin; Z71.3 Dietary counseling and surveillance
CPT/HCPCS: G0108

== ENCOUNTER → 2023-09-10 10:14 | Outpatient (CLI) | payer BC, SELFPAY ==
[2023-07-12 19:02] VITALS: BMI 28.8
== END ==
PROVIDERS: PCP Family Medicine; Referring Provider Hospitalist; Visit Provider Surgery
DX: E11.628 Type 2 diabetes mellitus with other skin complications (principal); S31.103A Unspecified open wound of abdominal wall, right lower quadrant without penetration into peritoneal cavity, initial encounter; L92.9 Granulomatous disorder of the skin and subcutaneous tissue, unspecified; L98.8 Other specified disorders of the skin and subcutaneous tissue; N18.9 Chronic kidney disease, unspecified; B18.2 Chronic viral hepatitis C; I10 Essential (primary) hypertension
CPT/HCPCS: 17250; 99213

== ENCOUNTER → 2023-09-24 10:11 | Outpatient (CLI) | payer BC, SELFPAY ==
[2023-07-12 19:02] VITALS: BMI 28.8
== END ==
PROVIDERS: PCP Family Medicine; Referring Provider Family Medicine; Visit Provider Surgery
DX: E11.628 Type 2 diabetes mellitus with other skin complications (principal); T81.89XA Other complications of procedures, not elsewhere classified, initial encounter; S31.109A Unspecified open wound of abdominal wall, unspecified quadrant without penetration into peritoneal cavity, initial encounter; L98.8 Other specified disorders of the skin and subcutaneous tissue; I25.10 Atherosclerotic heart disease of native coronary artery without angina pectoris; N18.9 Chronic kidney disease, unspecified; B18.2 Chronic viral hepatitis C
CPT/HCPCS: 11042; 99213

== ENCOUNTER → 2023-09-25 08:33 | Outpatient (CLI) | payer BC, SELFPAY ==
[2023-07-12 19:02] VITALS: BMI 28.8
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
== END ==
LOC: DIET 08:33
PROVIDERS: PCP Family Medicine; Referring Provider Family Medicine
DX: E11.65 Type 2 diabetes mellitus with hyperglycemia (principal); Z71.3 Dietary counseling and surveillance; Z79.4 Long term (current) use of insulin
CPT/HCPCS: 97802

== ENCOUNTER → 2023-10-15 09:43 | Outpatient (CLI) | payer BC, SELFPAY ==
[2023-07-12 19:02] VITALS: BMI 28.8
== END ==
LOC: WC 09:43
PROVIDERS: PCP Family Medicine; Referring Provider Family Medicine; Visit Provider Nurse Practitioner Family
DX: E11.628 Type 2 diabetes mellitus with other skin complications (principal); T81.89XA Other complications of procedures, not elsewhere classified, initial encounter; S31.109A Unspecified open wound of abdominal wall, unspecified quadrant without penetration into peritoneal cavity, initial encounter; L92.9 Granulomatous disorder of the skin and subcutaneous tissue, unspecified; N18.9 Chronic kidney disease, unspecified; I10 Essential (primary) hypertension; B18.2 Chronic viral hepatitis C
CPT/HCPCS: 17250; 99213

== ENCOUNTER → 2023-10-21 09:34 | Outpatient (CLI) | payer BC, SELFPAY ==
[2023-07-12 19:02] VITALS: BMI 28.8
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
== END ==
PROVIDERS: PCP Family Medicine; Referring Provider Family Medicine
DX: E11.9 Type 2 diabetes mellitus without complications (principal); Z79.4 Long term (current) use of insulin; Z71.3 Dietary counseling and surveillance
CPT/HCPCS: 97803

== ENCOUNTER → 2023-10-22 11:01 | Outpatient (CLI) | payer BC, SELFPAY ==
[2023-07-12 19:02] VITALS: BMI 28.8
== END ==
PROVIDERS: PCP Family Medicine; Referring Provider Hospitalist; Visit Provider Surgery
DX: E11.628 Type 2 diabetes mellitus with other skin complications (principal); T81.89XA Other complications of procedures, not elsewhere classified, initial encounter; S31.109A Unspecified open wound of abdominal wall, unspecified quadrant without penetration into peritoneal cavity, initial encounter; L98.8 Other specified disorders of the skin and subcutaneous tissue; R21 Rash and other nonspecific skin eruption; N18.9 Chronic kidney disease, unspecified; L92.9 Granulomatous disorder of the skin and subcutaneous tissue, unspecified
CPT/HCPCS: 17250; 99213

== ENCOUNTER → 2023-10-29 08:57 | Outpatient (CLI) | payer BC, SELFPAY ==
[2023-07-12 19:02] VITALS: BMI 28.8
== END ==
PROVIDERS: PCP Family Medicine; Referring Provider Hospitalist; Visit Provider Surgery
DX: S31.103A Unspecified open wound of abdominal wall, right lower quadrant without penetration into peritoneal cavity, initial encounter (principal); L02.91 Cutaneous abscess, unspecified; E11.628 Type 2 diabetes mellitus with other skin complications
CPT/HCPCS: 97602; 99213

== ENCOUNTER → 2023-11-05 08:56 | Outpatient (CLI) | payer BC, SELFPAY ==
[2023-07-12 19:02] VITALS: BMI 28.8
== END ==
PROVIDERS: PCP Family Medicine; Referring Provider Hospitalist; Visit Provider Surgery
DX: T81.89XA Other complications of procedures, not elsewhere classified, initial encounter (principal); S31.109A Unspecified open wound of abdominal wall, unspecified quadrant without penetration into peritoneal cavity, initial encounter; L98.8 Other specified disorders of the skin and subcutaneous tissue; E11.628 Type 2 diabetes mellitus with other skin complications; N18.9 Chronic kidney disease, unspecified; I25.10 Atherosclerotic heart disease of native coronary artery without angina pectoris
CPT/HCPCS: 99213

== ENCOUNTER → 2023-11-12 10:08 | Outpatient (CLI) | payer BC, SELFPAY ==
[2023-07-12 19:02] VITALS: BMI 28.8
== END ==
PROVIDERS: PCP Family Medicine; Referring Provider Hospitalist; Visit Provider Surgery
DX: S31.103D Unspecified open wound of abdominal wall, right lower quadrant without penetration into peritoneal cavity, subsequent encounter (principal); E11.628 Type 2 diabetes mellitus with other skin complications
CPT/HCPCS: 99212; 99213

== ENCOUNTER → 2023-11-18 09:41 | Outpatient (CLI) | payer BC, SELFPAY ==
[2023-07-12 19:02] VITALS: BMI 28.8
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
== END ==
PROVIDERS: PCP Family Medicine; Referring Provider Family Medicine
DX: E11.9 Type 2 diabetes mellitus without complications (principal); Z79.4 Long term (current) use of insulin; Z71.3 Dietary counseling and surveillance
CPT/HCPCS: 97803

== ENCOUNTER → 2023-12-08 10:53 | Outpatient (CLI) | payer BC, SELFPAY ==
[2023-07-12 19:02] VITALS: BMI 28.8
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
== END ==
PROVIDERS: PCP Family Medicine; Referring Provider Family Medicine
DX: E11.9 Type 2 diabetes mellitus without complications (principal); Z79.4 Long term (current) use of insulin; Z71.3 Dietary counseling and surveillance
CPT/HCPCS: 97803

== ENCOUNTER → 2024-02-03 11:04 | Outpatient (CLI) | payer BC, SELFPAY ==
[2023-07-12 19:02] VITALS: BMI 28.8
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
== END ==
LOC: DIET 11:05
PROVIDERS: PCP Family Medicine; Referring Provider Family Medicine
DX: E11.9 Type 2 diabetes mellitus without complications (principal); Z71.3 Dietary counseling and surveillance; Z79.4 Long term (current) use of insulin
CPT/HCPCS: G0108

== ENCOUNTER → 2024-03-15 11:10 | Outpatient (CLI) | payer BC, SELFPAY ==
[2023-07-12 19:02] VITALS: BMI 28.8
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
== END ==
PROVIDERS: PCP Family Medicine; Referring Provider Family Medicine
DX: E11.65 Type 2 diabetes mellitus with hyperglycemia (principal); Z71.3 Dietary counseling and surveillance; Z79.4 Long term (current) use of insulin
CPT/HCPCS: 97803

== ENCOUNTER → 2024-03-22 09:31 | Outpatient (CLI) | payer BC, SELFPAY ==
[2023-07-12 19:02] VITALS: BMI 28.8
--- NOTE | 2024-03-25 17:40 | DIAB.FU ---
Diabetes Education Class Series: Diabetes Physiology and Medications Name: Jose Lewis Date: 03/22/23 Time: 9:35-11:40a Jose presents for initial 1 of 3 DSME classes Class topics covered: ? Diabetes pathophysiology ? Discuss different types of diabetes ? Review criteria for diagnosing diabetes ? Review HgA1c measurement and associated blood sugars ? Review blood sugar monitoring safety, technique, and goals ? Discuss ways to reduce complications associated with diabetes, includes microvascular and macrovascular complications ? Review diabetes medications types, action, and side effects ? Health care visits recommended for people with T2DM ? Immunization recommended for people with T2DM ? SMART goals review Goal Set: Add protein to breakfast each day Follow-up: Diabetes Lifestyle and Ongoing Support Class next week Virgen Burk RDN, [facility] Certified Diabetes Care and Ornamental Metal Worker P: [phone] Thank you for this referral
== END ==
PROVIDERS: PCP Family Medicine; Referring Provider Family Medicine
DX: E11.9 Type 2 diabetes mellitus without complications (principal); Z71.3 Dietary counseling and surveillance
CPT/HCPCS: G0109

== ENCOUNTER → 2024-03-29 09:29 | Outpatient (CLI) | payer BC, SELFPAY ==
[2023-07-12 19:02] VITALS: BMI 28.8
--- NOTE | 2024-04-13 11:06 | DIAB.FU ---
Diabetes Education Class Series: Diabetes Physiology and Medications Name: Jose Lewis Date: 03/29/2024 Time: 930-11a Ruslan reports he has been working on nutrition choices at work. Also, has been adding more protein at breakfast recently. Class topics covered: ? Diabetes pathophysiology ? Discuss different types of diabetes ? Review criteria for diagnosing diabetes ? Review HgA1c measurement and associated blood sugars ? Review blood sugar monitoring safety, technique, and goals ? Discuss ways to reduce complications associated with diabetes, includes microvascular and macrovascular complications ? Review diabetes medications types, action, and side effects ? Health care visits recommended for people with T2DM ? Immunization recommended for people with T2DM ? SMART goals review Follow-up: Diabetes Lifestyle and Ongoing Support Class next week Virgen Burk RDN, [facility] Certified Diabetes Care and Cane Packer P: [phone] Thank you for this referral
== END ==
PROVIDERS: PCP Family Medicine; Referring Provider Family Medicine
DX: E11.9 Type 2 diabetes mellitus without complications (principal); Z71.3 Dietary counseling and surveillance; Z79.4 Long term (current) use of insulin
CPT/HCPCS: G0109

== ENCOUNTER → 2024-04-05 09:51 | Outpatient (CLI) | payer BC, SELFPAY ==
[2023-07-12 19:02] VITALS: BMI 28.8
--- NOTE | 2024-04-13 11:24 | DIAB.FU ---
Diabetes Education Class Series: Diabetes Lifestyle Change and Ongoing Support Name: Jose Lewis Date: 04/05/24 Time: 10 Bill presents for class 3 of 3. Reports getting better with insulin dosing. Endorses some support from family Uses prayer as stress management technique Class topics covered: ? Discuss the difference between physical activity and exercise ? Determine physical activity benefits and impact on diabetes ? Review physical activity recommendations and safety ? Discuss emergency preparedness ? Discuss diabetes and emotions (diabetes burnout/distress) ? Review and practice stress management techniques ? Review support groups and community resources ? Discuss the role of family support in diabetes care ? What is going well? Challenges of diabetes? Follow-up: 1:1 visit follow-up 3-4 weeks Virgen Burk RDN, [facility] Registered Dietitian, Certified Diabetes Care and Mix Mill Tender [phone] [email or web address]
== END ==
PROVIDERS: PCP Family Medicine; Referring Provider Family Medicine
DX: E11.9 Type 2 diabetes mellitus without complications (principal); Z71.3 Dietary counseling and surveillance; Z79.4 Long term (current) use of insulin
CPT/HCPCS: G0109

== ENCOUNTER → 2024-04-27 11:06 | Outpatient (CLI) | payer BC, SELFPAY ==
[2023-07-12 19:02] VITALS: BMI 28.8
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
== END ==
LOC: DIET 11:06
PROVIDERS: PCP Family Medicine
DX: E11.65 Type 2 diabetes mellitus with hyperglycemia (principal); Z71.3 Dietary counseling and surveillance; Z79.4 Long term (current) use of insulin
CPT/HCPCS: 97803

== ENCOUNTER → 2024-06-08 10:43 | Outpatient (CLI) | payer BC, SELFPAY ==
[2023-07-12 19:02] VITALS: BMI 28.8
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
== END ==
PROVIDERS: PCP Family Medicine; Referring Provider Family Medicine
DX: E11.65 Type 2 diabetes mellitus with hyperglycemia (principal); Z71.3 Dietary counseling and surveillance; Z79.4 Long term (current) use of insulin
CPT/HCPCS: G0108

== ENCOUNTER 2024-08-12 16:10 | Inpatient (IN) | payer BC, MEDICARE, SELFPAY ==
[2023-07-12 19:02] VITALS: BMI 28.8
[2024-08-12] VITALS (11 sets, daily range): BP systolic 117–152; BP diastolic 56–82; PULSE 85–94; RESP 18–33; TEMP 37.1–39.5; O2SAT 95–99; BMI 31.0; BMI 27.3
[2024-08-12 18:06] LABS: Add Manual Diff / Slide Review NO; Basophils Absolute Auto 100 /uL (0-100); Basophils Percent Auto 0.5 % (0-2); Eosinophils Absolute Auto 100 /uL (0-450); Eosinophils Percent Auto 0.3 % (2-4); Hematocrit 24.2 % (41-53); Lymphocytes Absolute Auto 700 /uL (1100-4500); Lymphocytes Percent Auto 4.1 % (25-40); Mean Corpuscular HGB Conc 33.2 % (30-36); Mean Corpuscular Hemoglobin 30.2 PG (26-34); Mean Corpuscular Volume 90.8 fL (80-100); Monocytes Absolute Auto 900 /uL (0-900); Monocytes Percent Auto 5.3 % (3-14); Neutrophils Absolute Auto 15600 /uL (1500-7000); Neutrophils Percent Auto 89.8 % (50-75); Platelet Count 251 X10^3/uL (150-400); Red Blood Cell Count 2.67 X10^6/uL (4.5-5.9); Red Cell Distribution Width 14.6 % (11.6-14.8); White Blood Cell Count 17.4 X10^3/uL (4.5-11.0)
[2024-08-12 18:13] LABS: Lactate (Lactic Acid) 0.9 mmol/L (0.7-2.1)
[2024-08-12 18:15] LABS: INR 1.3 (0.9-1.3); Prothrombin Time 14.7 SECONDS (9.4-12.5)
[2024-08-12 18:17] LABS: PTT Partial Thromboplastin Tim 33 SECONDS (25.1-36.5)
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
[2024-08-12 18:25] LABS: Erythrocyte Sedimentation Rate 128 MM/HR (0-15)
[2024-08-12 18:26] LABS: Alanine Aminotransferase 68 IU/L (<50); Albumin 3.9 g/dL (3.5-5.0); Albumin Globulin Ratio 0.9 (1.0-2.8); Alkaline Phosphatase 123 U/L (38-126); Aspartate Aminotransferase 67 IU/L (17-59); BUN Creatinine Ratio 16.4 (6-22); Bilirubin Total 0.5 mg/dL (0.2-1.3); Blood Urea Nitrogen 74 mg/dL (9-20); Calcium 8.8 mg/dL (8.4-10.2); Carbon Dioxide 15 mmol/L (22-32); Chloride 104 mmol/L (98-107); Estimated Glomerular Filt Rate 13 mL/min (>60); Globulin 4.3 g/dL (1.7-4.1); Glucose 155 mg/dL (70-99); HEMOLYSIS < 15 (0-50); Lipase 265 U/L (23-300); Potassium 5.1 mmol/L (3.4-5.1); Sodium 133 mmol/L (137-145); Total Protein 8.2 g/dL (6.3-8.2)
[2024-08-12] MEDS: SODIUM CHLORIDE 0.9% 1,000 ML 1000 ML IV (18:30)
--- NOTE | 2024-08-12 18:33 | DI.US.S_ITS ---
PROCEDURE: US PERIPH VENOUS LOW EXTREM LT INDICATIONS: L left redness and swelling TECHNIQUE: Real-time imaging, as well as color and pulse Doppler interrogation, were performed of the lower extremity deep veins from the inguinal ligament to the popliteal fossa, with documentation of the visualized calf veins. COMPARISON: None. FINDINGS: The common femoral, femoral, popliteal, and the visualized calf veins are normally compressible, and free of intraluminal thrombus. Color and pulse Doppler demonstrate normal phasic intraluminal flow. There is normal augmentation response to distal compression maneuver. IMPRESSION: No left lower extremity DVT. Dictated by: Dennys Ardon M.D. on 08/12/2024 at 19:26 Approved by: Dennys Ardon M.D. on 08/12/2024 at 19:28
[2024-08-12 18:39] LABS: C-Reactive Protein Quant 1.4 mg/dL (<1.0)
[2024-08-12] MEDS: ACETAMINOPHEN 325 MG TABLET 975 MG PO (18:44)
[2024-08-12] MEDS: PIPERACILLIN/TAZO 4.5 GM in SODIUM CHLORIDE 0.9% 100 ML IV (19:01)
[2024-08-12 19:03] LABS: Amorphous Sediment Urine 1+; Bacteria Urine Occasional (0-1); Culture Indicated Urine Cult Not Indicated; RBC Urine 1-5/HPF (0-5/HPF); Squamous Epithelial Cell Urine 0-1 /HPF (0-5/HPF); Urine Volume Low Vol <10mL (spun); WBC Urine 0-1/HPF (0-5/HPF)
[2024-08-12] MEDS: VANCOMYCIN 1,500 MG/300 ML PIGGYBACK 200 MG IV (19:15)
[2024-08-12] MEDS: MORPHINE 4 MG/ML INJ IV (19:27)
[2024-08-12] MEDS: HYDROCODONE/ACET 5/325 TABLET 1 TAB PO (22:02)
[2024-08-12] MEDS: HEPARIN 5,000 UNIT/ML VIAL 5000 UNIT SUBCUT (22:02)
[2024-08-12] MEDS: SODIUM CHLORIDE 0.9% 1,000 ML 100 ML IV (22:45)
--- NOTE | 2024-08-12 23:17 | PC.WOUNDPHOT ---
LLE LLE LLE L Foot RLE RLE R ABD R ABD
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
[2024-08-13] VITALS (10 sets, daily range): BP systolic 122–160; BP diastolic 69–91; PULSE 66–89; RESP 16–19; TEMP 36.4–39.3; O2SAT 94–98
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
[2024-08-13] MEDS: PIPERACILLIN/TAZO 3.375 GM in SODIUM CHLORIDE 0.9% 100 ML IV (05:10)
[2024-08-13 05:48] LABS: Add Manual Diff / Slide Review NO; Basophils Absolute Auto 100 /uL (0-100); Basophils Percent Auto 0.6 % (0-2); Eosinophils Absolute Auto 0 /uL (0-450); Eosinophils Percent Auto 0.1 % (2-4); Hematocrit 21.9 % (41-53); Hemoglobin 7.4 g/dL (13.5-17.5); Lymphocytes Absolute Auto 1300 /uL (1100-4500); Lymphocytes Percent Auto 9.9 % (25-40); Mean Corpuscular HGB Conc 33.8 % (30-36); Mean Corpuscular Hemoglobin 30.6 PG (26-34); Mean Corpuscular Volume 90.3 fL (80-100); Monocytes Absolute Auto 1400 /uL (0-900); Monocytes Percent Auto 10.1 % (3-14); Neutrophils Absolute Auto 10700 /uL (1500-7000); Neutrophils Percent Auto 79.3 % (50-75); Platelet Count 202 X10^3/uL (150-400); Red Blood Cell Count 2.42 X10^6/uL (4.5-5.9); Red Cell Distribution Width 14.6 % (11.6-14.8); White Blood Cell Count 13.6 X10^3/uL (4.5-11.0)
[2024-08-13 06:15] LABS: Alanine Aminotransferase 54 IU/L (<50); Albumin 3.4 g/dL (3.5-5.0); Albumin Globulin Ratio 0.9 (1.0-2.8); Alkaline Phosphatase 98 U/L (38-126); Aspartate Aminotransferase 50 IU/L (17-59); BUN Creatinine Ratio 15.4 (6-22); Bilirubin Total 0.5 mg/dL (0.2-1.3); Blood Urea Nitrogen 73 mg/dL (9-20); Calcium 8.6 mg/dL (8.4-10.2); Carbon Dioxide 14 mmol/L (22-32); Chloride 106 mmol/L (98-107); Estimated Glomerular Filt Rate 13 mL/min (>60); Glucose 107 mg/dL (70-99); HEMOLYSIS < 15 (0-50); Potassium 4.7 mmol/L (3.4-5.1); Sodium 133 mmol/L (137-145); Total Protein 7.4 g/dL (6.3-8.2)
[2024-08-13] MEDS: ACETAMINOPHEN 325 MG TABLET 650 MG PO (08:59)
[2024-08-13] MEDS: AMLODIPINE 5 MG TABLET PO (09:00)
[2024-08-13] MEDS: carvediloL 12.5 MG TABLET PO ×2 (09:00→22:09)
[2024-08-13] MEDS: FUROSEMIDE 40 MG TABLET PO (09:00)
--- NOTE | 2024-08-13 09:14 | DI.CT.S_ITS ---
PROCEDURE: CT LE LT W CON INDICATIONS: Soft tissue swelling, please evaluate for abscess, unable to do contrast w/ HAILE TECHNIQUE: Noncontrast 1-1.5 mm axial sections acquired from the mid-patella to the proximal tibia, with coronal and sagittal reformats. COMPARISON: Merged With [facility], CR, XR CHEST 1V, 08/13/2024, 9:14. Merged With [facility], US, US PERIPH VENOUS LOW EXTREM LT, 08/12/2024, 19:03. FINDINGS: Image quality: Limited by lack of IV contrast. Bones: No fracture dislocation can be seen. Chronic remote fragmentation of the tibial tubercle can be seen. Generalized degenerative changes are seen. Soft tissues: Generalized soft tissue swelling is seen, with skin thickening and fatty stranding, particularly involving the anterior tarango. No findings of soft tissue gas can be seen. No focal fluid collection is seen to suggest abscess. No muscular involvement is seen. Generalized atherosclerotic calcification can be seen. IMPRESSION: No soft tissue abscess is seen, to the limits of this study performed without IV contrast. Generalized soft tissue swelling is seen, with an imaging appearance most consistent with significant cellulitis. Dictated by: Tavon Waller M.D. on 08/13/2024 at 13:03 Approved by: Tavon Waller M.D. on 08/13/2024 at 13:04
--- NOTE | 2024-08-13 09:16 | DI.RAD.S_ITS ---
PROCEDURE: XR CHEST 1V INDICATIONS: shortness of breath, fever, cough TECHNIQUE: One view of the chest was acquired. COMPARISON: [facility], CR, XR CHEST 1V, 10/28/2020, 21:50. FINDINGS: Surgical changes and devices: None. Lungs and pleura: Mild generalized interstitial prominence can be seen. There is a small left-sided pleural effusion. There is minimal blunting of the right costophrenic angle. No pneumothorax is seen. Mediastinum: The cardiac contours are moderately enlarged. The aorta demonstrates calcification and tortuosity. Bones and chest wall: No suspicious bony lesions. Overlying soft tissues appear unremarkable. IMPRESSION: Cardiomegaly with at least a small left-sided pleural effusion and generalized interstitial prominence. CHF is suspected. Dictated by: Tavon Waller M.D. on 08/13/2024 at 8:47 Approved by: Tavon Waller M.D. on 08/13/2024 at 8:48
--- NOTE | 2024-08-13 09:28 | PC.NURSE ---
Pt alert and oriented, conversant. Follows commands, expresses needs well. Offers no c/o presently. Pt's temp is 102.8 and has been reported to Dr. Mendoza along with other lab results. See new orders. Dr. Mendoza into see Pt presently.
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
--- NOTE | 2024-08-13 11:54 | CM.DANOTE ---
Addendum entered by BELINDA Abdullahi 08/13/24 12:01: ADD: Pt asked SW to call local [facility] [place] to see if a breast splitter can arrive bedside tomorrow for Eucharist and SW [place] [place] [facility] [place] [phone]. BF Original Note: Patient is a 68 yo male who was admitted INPT status on 08/12/24 for Lower Leg Cellulitis and HAILE. ? Pt has MCR A Only and BCBS OUT [place] REG for insurance and his PCP is Kwan Harris.? EMR was reviewed.? Per MD, pt with hx of hypertension, DM and HAILE and getting IV-Abx. Cultures pending and to have CT of his leg, but withouth contrast due to his HAILE, to r/o osteo or abscess. Likely here a few days. SW met bedside with pt and explained role and he confirms he still drives, ambulates independently at baseline, works some at [employer] still. Family drove pt to the hospital this time so he states one of his two Dtrs will be able to provide transport home at d/c. ? Pt states his Dtr and KEITH live in [facility] and can assist if needed.? Pt denies any hx of HH or SNF. Pt last admitted 07/12/23 for wound care and HAILE as well and was able to d/c home with outpt [facility] and pt is currently established with Director Of Medical Education [facility]gen at baseline. Pt preference is to d/c home when medically stable and would be agreeable to outpt referrals and confirms he is no longer at [facility] as his wound from last year had healed and he no longer needed wound care until this admission. Plan: SW to follow closely for imaging and progress towards determining any discharge planning needs and r/o care home IV-Abx. BELINDA Abdullahi Discharge Planning/Care Management Advanced directive, confirm from FAMILY Start: 08/12/24 21:26 Freq: Q24H Status: Active Protocol: Document 08/12/24 21:26 MW (Rec: 08/12/24 21:27 MW Laptop) Advance Directive, confirm on record Time 21:27 Person contacted pt Copy received No CM Discharge Assessment Start: 08/12/24 20:48 Freq: Status: Active Protocol: Document 08/13/24 11:45 BF (Rec: 08/13/24 11:49 BF [id number]) Discharge Planning Assessment Assigned Turner Off BELINDA Gutierrez/Assigned Designee Name Dtr Isauro Contact Information [phone] Advance Directives? No Advance Directives on File No History Provided By Patient,Medical Record Has Patient been admitted in last 30 No days? Comment last admit a year ago June 2023 and went home with outpt wound care Prior Living Arrangements Mobile home Household Members none Type of transporation used prior to Drives own vehicle admit Independent with ADL's Yes Is patient alert and oriented? Yes Needs Assistance With Home Chores / Shopping Caregiver for Another No Comment Established with [facility] Director Of Medical Education Comment Pending cultures and abx needs Barriers to Discharge No Discharge Plan Home Community Services Wound Care Transportation Arrangement Patient states he has two Dtrs who could provide transport at d/c Additional Comment Patient has ex- and two adult sons that reside in [facility]. Whiteboard Updated in Patient Room with Yes name and ext. # of Turner Off Review Status In Process Please Provide Date Initial DC 08/13/24 Assessment Was Performed Next Review Type Continued Stay Review
[2024-08-13] MEDS: INSULIN LISPRO 100 UNIT/ML 3ML VIAL SUBCUT ×2 (12:14→17:34)
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
[2024-08-13] MEDS: CEFEPIME 1 GM in SODIUM CHLORIDE 0.9% 100 ML IV (15:51)
[2024-08-13] MEDS: ATORVASTATIN 20 MG TABLET 40 MG PO (17:33)
[2024-08-13] MEDS: HYDROCODONE/ACET 5/325 TABLET 1 TAB PO (20:38)
[2024-08-13] MEDS: GABAPENTIN 100 MG CAPSULE PO (20:39)
[2024-08-13] MEDS: SODIUM CHLORIDE 0.9% 1,000 ML 100 ML IV (22:00)
[2024-08-13] MEDS: INSULIN GLARGINE 100 UNIT/ML 3ML PEN 36 UNIT SUBCUT (22:10)
[2024-08-14] VITALS (10 sets, daily range): BP systolic 135–157; BP diastolic 64–84; PULSE 70–85; RESP 16–20; TEMP 36.3–37.7; O2SAT 95–99
[2024-08-14] MEDS: HYDROCODONE/ACET 5/325 TABLET 1 TAB PO ×4 (02:06→18:39)
[2024-08-14 06:43] LABS: Hemoglobin A1C% w Est Avg Glu 5.6 % (4.0-6.0)
[2024-08-14] MEDS: AMLODIPINE 5 MG TABLET PO (08:48)
[2024-08-14] MEDS: FUROSEMIDE 40 MG TABLET PO (08:48)
[2024-08-14] MEDS: carvediloL 12.5 MG TABLET PO ×2 (08:48→20:48)
--- NOTE | 2024-08-14 08:48 | PT-IP ANOTE ---
PT reviews chart and notes HGB drop of 8.0 to 7.4 on 08/13 in pt adm with LLE edema. Will hold PT today until HGB results known and then con't PT efforts.
[2024-08-14 08:55] LABS: BUN Creatinine Ratio 14.5 (6-22); Blood Urea Nitrogen 77 mg/dL (9-20); Calcium 8.5 mg/dL (8.4-10.2); Carbon Dioxide 14 mmol/L (22-32); Chloride 107 mmol/L (98-107); Estimated Glomerular Filt Rate 11 mL/min (>60); Glucose 97 mg/dL (70-99); HEMOLYSIS < 15 (0-50); Magnesium 1.4 mg/dL (1.6-2.3); Potassium 4.6 mmol/L (3.4-5.1); Sodium 132 mmol/L (137-145)
[2024-08-14 08:57] LABS: Add Manual Diff / Slide Review NO; Basophils Absolute Auto 100 /uL (0-100); Basophils Percent Auto 0.8 % (0-2); Eosinophils Absolute Auto 300 /uL (0-450); Eosinophils Percent Auto 2.6 % (2-4); Lymphocytes Absolute Auto 1800 /uL (1100-4500); Lymphocytes Percent Auto 15.6 % (25-40); Mean Corpuscular HGB Conc 33.5 % (30-36); Mean Corpuscular Hemoglobin 30.4 PG (26-34); Mean Corpuscular Volume 90.8 fL (80-100); Monocytes Absolute Auto 1400 /uL (0-900); Monocytes Percent Auto 12.2 % (3-14); Neutrophils Absolute Auto 8100 /uL (1500-7000); Neutrophils Percent Auto 68.8 % (50-75); Platelet Count 185 X10^3/uL (150-400); Red Blood Cell Count 2.22 X10^6/uL (4.5-5.9); Red Cell Distribution Width 14.6 % (11.6-14.8); White Blood Cell Count 11.7 X10^3/uL (4.5-11.0)
[2024-08-14 08:59] LABS: Hematocrit 20.2 % (41-53); Hemoglobin 6.8 g/dL (13.5-17.5)
[2024-08-14] MEDS: SODIUM CHLORIDE 0.9% FLUSH 10 ML IV ×2 (09:00→21:02)
--- NOTE | 2024-08-14 11:54 | CM.DPC ---
DCP Cont: Per MD, pt with low H&H and getting a unit of blood today and kidney function remains poor but no recommendation of dialysis yet but pt at risk for hospital transfer if kidney function continues to decline. PT on hold today but yesterday completed eval and pt was 1PA with mobility and were recommending SNF rehab before return home alone. SW met bedside with pt and discussed SNF recommendation and pt confirms that his preference is home at discharge and currently declines need for SNF rehab. Pt anticipates mobilizing better once his medical conditions are better managed. Adal from [facility] [phone] arrived bedside and provided pt Communion per pt request and can be bedside again tomorrow Mon for communion as well. Pt appreciative. Plan: SW to follow closely for medical progress and further PT to confirm home with outpt f/u vs SNF vs possible hospital transfer if pt ends up needing higher level of care. Brenda Galloway, SECURITIES ANALYST
[2024-08-14] MEDS: FUROSEMIDE 40 MG/4 ML VIAL IV (14:22)
[2024-08-14 14:46] LABS: Vancomycin Random 9.5 ug/mL (10-40)
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
[2024-08-14] MEDS: VANCOMYCIN TROUGH 1 REQUEST MISC (15:00)
[2024-08-14] MEDS: CEFEPIME 1 GM in SODIUM CHLORIDE 0.9% 100 ML IV (15:56)
[2024-08-14] MEDS: VANCOMYCIN 1,250 MG/250 ML PIGGYBACK 166.667 MG IV (16:52)
[2024-08-14] MEDS: INSULIN LISPRO 100 UNIT/ML 3ML VIAL SUBCUT (16:57)
[2024-08-14] MEDS: ATORVASTATIN 20 MG TABLET 40 MG PO (18:40)
[2024-08-14] MEDS: GABAPENTIN 100 MG CAPSULE PO (20:50)
[2024-08-14] MEDS: INSULIN GLARGINE 100 UNIT/ML 3ML PEN 36 UNIT SUBCUT (20:55)
[2024-08-15 03:56] VITALS: BP 146/88; PULSE 82; RESP 16; TEMP 37.1; O2SAT 97
[2024-08-15 06:15] LABS: Add Manual Diff / Slide Review NO; Basophils Absolute Auto 100 /uL (0-100); Basophils Percent Auto 0.7 % (0-2); Eosinophils Absolute Auto 300 /uL (0-450); Eosinophils Percent Auto 2.9 % (2-4); Hematocrit 23.3 % (41-53); Hemoglobin 8.1 g/dL (13.5-17.5); Lymphocytes Absolute Auto 1400 /uL (1100-4500); Lymphocytes Percent Auto 13.7 % (25-40); Mean Corpuscular HGB Conc 34.7 % (30-36); Mean Corpuscular Hemoglobin 31.3 PG (26-34); Mean Corpuscular Volume 90.4 fL (80-100); Monocytes Absolute Auto 1100 /uL (0-900); Monocytes Percent Auto 10.6 % (3-14); Neutrophils Absolute Auto 7500 /uL (1500-7000); Neutrophils Percent Auto 72.1 % (50-75); Platelet Count 197 X10^3/uL (150-400); Red Blood Cell Count 2.57 X10^6/uL (4.5-5.9); Red Cell Distribution Width 14.4 % (11.6-14.8); White Blood Cell Count 10.4 X10^3/uL (4.5-11.0)
[2024-08-15 06:22] LABS: BUN Creatinine Ratio 16.2 (6-22); Blood Urea Nitrogen 83 mg/dL (9-20); Calcium 8.5 mg/dL (8.4-10.2); Carbon Dioxide 13 mmol/L (22-32); Chloride 104 mmol/L (98-107); Estimated Glomerular Filt Rate 11 mL/min (>60); Glucose 121 mg/dL (70-99); HEMOLYSIS < 15 (0-50); Magnesium 1.4 mg/dL (1.6-2.3); Potassium 4.2 mmol/L (3.4-5.1); Sodium 132 mmol/L (137-145)
[2024-08-15 07:00] VITALS: BP 138/86; PULSE 88; RESP 19; TEMP 37.2; O2SAT 96
[2024-08-15] MEDS: SODIUM CHLORIDE 0.9% FLUSH 10 ML IV ×2 (10:00→20:49)
--- NOTE | 2024-08-15 10:18 | PT.IPTN ---
Current Diagnoses Cellulitis of left lower limb (08/12/24) Physical Therapy Treatment Note M2 PT-IP Current Condition Start: 08/13/24 12:15 Freq: NEEDED Status: Active Protocol: Document 08/13/24 10:15 AB (Rec: 08/13/24 12:28 AB Desktop) Physical Therapy Current Condition Current Condition Evaluation Date 08/13/24 Treatment Diagnosis LLE cellulitis; difficulty in walking Onset Date 08/12/24 M3 PT-IP Subjective Start: 08/13/24 12:15 Freq: NEEDED Status: Active Protocol: Document 08/15/24 09:52 MB (Rec: 08/15/24 10:18 MB Desktop) Subjective Physical Therapy Visit Type Type Treatment Note Visit Start Time 09:52 Visit Stop Time 10:04 Notes HGB is better today and creatinine is slightly better Number of CUSTOMER ASSISTANCE ASSOCIATE Visits 0 Physical Therapy Visit Comments Patient Comments Pt is agreeable to PT. He states that he got blood yesterday. Therapy Pain Assessment Pain When Pain Assessed At Rest Location Left Leg Intensity 7 M4 PT-IP Mobility and Gait Start: 08/13/24 12:15 Freq: NEEDED Status: Active Protocol: Document 08/15/24 09:52 MB (Rec: 08/15/24 10:18 MB Desktop) PT-Bed Mobility Assessment Supine to Sit Supine to Sit Standby Assistance,Head of Bed Elevated,Bedrails Scooting Scooting to Edge of Bed Standby Assistance PT-Transfer Assessment Sit to and From Stand Sit to and from Stand Contact Guard Assistance,1 Person Assistance,Use of Upper Extremities Equipment Transfer Assistive Device Gait Belt,Front Wheeled Walker Orthotic/Prosthetic Devices or Brace: No Transfers Transfer Technique Ambulation to sink, left there with OT Transfer Ability Level of Assist Contact Guard Assistance,Use of Upper Extremities Comments Mobility Comments LLE is very red and scaly, painful Gait Assessment Gait Gait Assistance Required: Contact Guard Assist Distance (Feet) 45 Able to Maintain Weight Bearing Status Yes During Gait Assistive Devices Assistive Device Gait Belt,Front Wheeled Walker Orthotic/Prosthetic Devices or Brace: No Gait Deviations General Gait Pattern Antalgic,Decreased Stride Length,Decreased Feet Clearance,Step-to Gait Factors Limiting Gait Function Factors Limiting Gait Function Decreased Strength,Difficulty Following Directions,Limited Range of Motion,Pain,Poor Balance,Poor Safety Awareness Comments Gait Comments LLE tends to buckle and so instructed on step-to gait pattern for safety and pain management PT-Balance Assessment Sitting Balance and Reactions Static Sitting Balance Ability Good Dynamic Sitting Balance Ability Good Standing Balance and Reactions Static Standing Balance Ability Fair Dynamic Standing Balance Ability Fair Device Used RW M5 PT-IP Objective Assessments Start: 08/13/24 12:15 Freq: NEEDED Status: Active Protocol: Document 08/13/24 10:15 AB (Rec: 08/13/24 12:28 AB Desktop) Orientation Orientation/Cognition Level of Alertness Alert Orientation Name,Place,Situation Language Function Ability No Deficits Noted Safety Awareness Decreased Safety Awareness Memory Description No Deficits Noted Strength Lower Extremity Strength Assessment Left Impaired Hip 3+/5 Knee 4-/5 Sensation Assessment Sensation Sensation Description Numbness Comments Sensation Comments BLE slight numbness Muscle Tone Muscle Tone WNL Yes M6 PT-IP Treatment Start: 08/13/24 12:15 Freq: NEEDED Status: Active Protocol: Document 08/13/24 10:15 AB (Rec: 08/13/24 12:28 AB Desktop) Physical Therapy Treatment Education Education Provided Safety M7 PT-IP Assessment and Plan Start: 08/13/24 12:15 Freq: NEEDED Status: Active Protocol: Document 08/15/24 09:52 MB (Rec: 08/15/24 10:18 MB Desktop) PT Summary Assessment and Plan Potential Rehabilitation Potential Fair Status of Condition at Evaluation Evolving Summary Impairments Pain,ROM,Strength,Balance, Coordination,Sensation,Bed Mobility,Transfers,Gait, Activity Tolerance Progress Towards Goals Slow Progress due to Pain Assessment Summary Pt presents with redness and scaly skin LLE and the leg is painful. Pt's LLE gives way with gait and he has decreased tolerance to weight acceptance and PT teaches step -to pattern for safety. Pt states he does not have help at home and is not clear about disposition goal. Currently, con't to recommend SNF at d/c. Pt does work full-time at [employer] at baseline. Goals Bed Mobility Goal Independent Transfer Goal Independent,Front Wheeled Walker Gait Goal Independent,Front Wheel Walker Gait Distance 100 Other Goals up/down 4 steps bilateral rails SBA Days to Meet Goals 10 Frequency of Treatment Frequency Of Treatment Once a Day Treatment Plan Physical Therapy Treatment Plan Bed Mobility Training,Transfer Training,Gait Training, Therapeutic Exercise,Balance Retraining,Discharge Planning, Hot or Cold Pack,Neuromuscular Re-ed,Coordination Retraining Recommendations To Nursing Amount of Assist Needed 1 Person Assist Discharge Recommendations PT Discharge Recommendations SNF Rehab Equipment Needed for Home Before FWW if does not d/c to SNF Discharge Transportation Needs at Discharge Private Vehicle - PT assist 1
--- NOTE | 2024-08-15 10:33 | DIET.CONS ---
Dietary Consultation Note Admission Date: 08/12/2024 20:22 Assessment: 68 y M admitted for cellulitis. Dietitian screened for low MNA. PMH of CKD stage 4 and DM2. Met with pt at bedside. Reports appetite is generally low, but has been eating more this admission than at home. 100% of meals, DFM reviewed for meal composition. Outside of hospital last few months has been doing following: diet recall of 1 protein drink in morning, regular sized lunch, and small snack for dinner Pt reports a 6 lb weight loss since May, non-severe. NFPE performed with no significant findings. Assessed temples, buccal and orbital fat pads, clavicle region, and interosseous muscle. Follows with [facility] outpatient, next appt in Oct 2024. Pt confirms still has CGM and reports 66% TIR. Reports no issues with the CGM lately. Recent A1c was 5.6%. Ht: 175.26 cm Wt: 84 kg BMI: 27.3 UBW: 195 lb in May per pt, -5.5% weight loss in 3 months, non-severe Last BM: 08/14/24 (08/14/24 22:10) MNA: 9 Ernesto Score: 20 Diet: 08/12/24 Breakfast Carbohydrate Consistent Diet Diet Modifications: Carbohydrate level: Medium (3 CHO) Reflex DM orders: No Nutrition Percent Meal Consumed 100% 08/15/24 09:41 Percent Meal Consumed 100% 08/14/24 18:24 Percent Meal Consumed 100% 08/14/24 12:00 Percent Meal Consumed 100% 08/14/24 08:25 Percent Meal Consumed 100% 08/13/24 18:00 Labs: RBC 2.57 X10^6/uL (4.5-5.9) L 08/15/24 05:14 Hgb 8.1 g/dL (13.5-17.5) L 08/15/24 05:14 Hct 23.3 % (41-53) L 08/15/24 05:14 Creatinine 5.12 mg/dL (0.66-1.25) H 08/15/24 05:14 Hemoglobin A1c 5.6 % (4.0-6.0) 08/14/24 05:40 Lactate 0.9 mmol/L (0.7-2.1) 08/12/24 16:48 Nutrition Diagnosis: Unintentional weight loss r/t low appetite aeb 5.5% weight loss in 3 months, non-severe Interventions: -Encouraged continued consistent meals, small meal/snack as needed to avoid skipping eating time and severe weight loss -F/u with [facility] Monitoring/Evaluations: PO intakes Electronically Signed by: Shayy Terrazas 08/15/24 10:33 Clinical Dietitian [address] [address]
[2024-08-15 11:00] VITALS: BP 161/87; PULSE 76; RESP 16; TEMP 37.2; O2SAT 97
[2024-08-15] MEDS: MAGNESIUM CHLORIDE 64 MG TABLET 128 MG PO (11:39)
[2024-08-15] MEDS: carvediloL 12.5 MG TABLET PO ×2 (11:41→20:49)
[2024-08-15] MEDS: HYDROCODONE/ACET 5/325 TABLET 1 TAB PO ×2 (11:41→20:49)
[2024-08-15] MEDS: AMLODIPINE 5 MG TABLET PO (11:41)
[2024-08-15] MEDS: DOXYCYCLINE 100 MG in SODIUM CHLORIDE 0.9% 100 ML IV ×2 (11:46→21:38)
[2024-08-15] MEDS: INSULIN LISPRO 100 UNIT/ML 3ML VIAL SUBCUT ×3 (11:57→21:19)
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
[2024-08-15] MEDS: CEFEPIME 1 GM in SODIUM CHLORIDE 0.9% 100 ML IV (14:11)
[2024-08-15 15:00] VITALS: BP 139/62; PULSE 74; RESP 12; TEMP 37.2; O2SAT 96
--- NOTE | 2024-08-15 15:38 | CM.DPNOTE ---
DCP note HVAC COMMERCIAL SALESPERSON reviewed EMR per provider in morning rounds, likely switch to PO abx. kidneys remain poor but no likely need for transfer. per RN, pt's wound is dry no open area. unlikely will need OP wound care f/u. HVAC COMMERCIAL SALESPERSON unable to meet with pt today due to triaging needs. per OT eval, rec SNF. per previous CM notes, pt declines SNF adamantly and plans to return home. P: anticipate return home when medically stable. CM team will continue to follow as needed for DCP coordination BELINDA Blanco
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
[2024-08-15] MEDS: ATORVASTATIN 20 MG TABLET 40 MG PO (18:00)
--- NOTE | 2024-08-15 18:58 | DI.US.S_ITS ---
PROCEDURE: US RENAL COMPLETE INDICATIONS: Rule out hydronephrosis TECHNIQUE: Real-time scanning was performed of the kidneys and bladder, with image documentation. COMPARISON: None. FINDINGS: Kidneys: Kidneys are normal in size. Right kidney measures 10.6 cm long; left kidney measures 11.9 cm long. Right renal cortical thickness is 0.9 cm; left renal cortical thickness is 0.9 cm. Renal cortical echotexture is increased. No hydronephrosis or nephrolithiasis. No suspicious solid mass lesions. Bladder: Pre-void bladder volume is 349 mL. Post-void residual is 349 mL. Pre-void images demonstrate no intraluminal masses or stones. On pre-void images, neither ureteral jets are noted with color Doppler interrogation. (Of note, ureteral jets may not be detectable in up to 25% of cases due to insufficient differences in specific gravity between ureteral and bladder urine). Miscellaneous: No free pelvic fluid. IMPRESSION: No hydronephrosis. Elevated postvoid residual 349 milliliter, consistent with urinary retention. Increased renal cortical echogenicity, consistent with chronic parenchymal disease. Dictated by: Dwain Grier M.D. on 08/16/2024 at 8:43 Approved by: Dwain Grier M.D. on 08/16/2024 at 8:44
[2024-08-15 20:42] VITALS: BP 147/87; PULSE 79; RESP 15; TEMP 37.3; O2SAT 96
[2024-08-15 20:49] VITALS: BP 147/87
[2024-08-15] MEDS: GABAPENTIN 100 MG CAPSULE PO (20:49)
[2024-08-15] MEDS: INSULIN GLARGINE 100 UNIT/ML 3ML PEN 36 UNIT SUBCUT (21:18)
[2024-08-16] VITALS (7 sets, daily range): BP systolic 146–164; BP diastolic 80–94; PULSE 70–77; RESP 16–21; TEMP 36.7–37.1; O2SAT 96–98
[2024-08-16 06:32] LABS: Add Manual Diff / Slide Review NO; Basophils Absolute Auto 100 /uL (0-100); Eosinophils Absolute Auto 300 /uL (0-450); Eosinophils Percent Auto 4.5 % (2-4); Hematocrit 23.4 % (41-53); Hemoglobin 7.9 g/dL (13.5-17.5); Lymphocytes Absolute Auto 1300 /uL (1100-4500); Lymphocytes Percent Auto 16.3 % (25-40); Mean Corpuscular HGB Conc 33.7 % (30-36); Mean Corpuscular Hemoglobin 30.9 PG (26-34); Mean Corpuscular Volume 91.5 fL (80-100); Monocytes Absolute Auto 900 /uL (0-900); Monocytes Percent Auto 12.2 % (3-14); Neutrophils Absolute Auto 5100 /uL (1500-7000); Platelet Count 193 X10^3/uL (150-400); Red Blood Cell Count 2.56 X10^6/uL (4.5-5.9); Red Cell Distribution Width 14.4 % (11.6-14.8); White Blood Cell Count 7.8 X10^3/uL (4.5-11.0)
[2024-08-16 06:33] LABS: BUN Creatinine Ratio 17.3 (6-22); Blood Urea Nitrogen 88 mg/dL (9-20); Calcium 8.6 mg/dL (8.4-10.2); Carbon Dioxide 12 mmol/L (22-32); Chloride 106 mmol/L (98-107); Estimated Glomerular Filt Rate 12 mL/min (>60); Glucose 106 mg/dL (70-99); HEMOLYSIS < 15 (0-50); Magnesium 1.4 mg/dL (1.6-2.3); Potassium 4.5 mmol/L (3.4-5.1); Sodium 131 mmol/L (137-145)
[2024-08-16] MEDS: carvediloL 12.5 MG TABLET PO ×2 (09:09→20:40)
[2024-08-16] MEDS: HYDROCODONE/ACET 5/325 TABLET 1 TAB PO ×2 (09:09→19:56)
[2024-08-16] MEDS: AMLODIPINE 5 MG TABLET PO (09:10)
[2024-08-16] MEDS: DOXYCYCLINE 100 MG in SODIUM CHLORIDE 0.9% 100 ML IV ×2 (09:17→20:41)
[2024-08-16] MEDS: SODIUM CHLORIDE 0.9% FLUSH 10 ML IV ×2 (09:17→21:03)
[2024-08-16] MEDS: INSULIN LISPRO 100 UNIT/ML 3ML VIAL SUBCUT ×3 (12:15→16:57)
[2024-08-16] MEDS: MAGNESIUM CHLORIDE 64 MG TABLET 128 MG PO (12:17)
[2024-08-16] MEDS: CEFEPIME 1 GM in SODIUM CHLORIDE 0.9% 100 ML IV (14:16)
--- NOTE | 2024-08-16 15:49 | CM.DPNOTE ---
DCP note CERTIFIED HYPERBARIC TECHNICIAN reviewed EMR per provider, hopeful to dc tomorrow on PO abx. needs urgent F/u with PCP for nephrology ref/OP wound care through PCP. CERTIFIED HYPERBARIC TECHNICIAN called pt's PCP Office [phone]. spoke with television presenter. earliest PCP f/u appt is 08/29 at 3:40pm. CERTIFIED HYPERBARIC TECHNICIAN updated intake on urgent of f/u appt. updated intake on pt's kidney fx to pass message along to clinical team. CERTIFIED HYPERBARIC TECHNICIAN unable to meet with pt today due to triaging needs. CERTIFIED HYPERBARIC TECHNICIAN will f/u with pt and medical team tomorrow to inquire about wound care need/ f/u about HH. P: anticipate dc tomorrow. will follow closely for wound care need/pt preferences. will follow closely for any additional DCP needs. BELINDA Singleton
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
--- NOTE | 2024-08-16 16:27 | OT.IP.TRT ---
Current Diagnoses Cellulitis of left lower limb (08/12/24) Occupational Therapy Treatment Note M2 OT-IP Current Condition Start: 08/15/24 10:14 Freq: Status: Active Protocol: Document 08/15/24 10:14 SHASTA (Rec: 08/15/24 10:24 SHASTA Desktop) Occupational Therapy Current Condition Current Condition Evaluation Date 08/15/24 Treatment Diagnosis L LE cellulitis Diagnosis Onset Date 08/12/24 M3 OT- IP Subjective and Pain Start: 08/15/24 10:14 Freq: Status: Active Protocol: Document 08/16/24 15:43 [facility] (Rec: 08/16/24 17:05 [facility] Desktop) OT- Subjective Occupational Therapy Visit Type Type Treatment Note Visit Start Time 15:43 Visit Stop Time 16:27 Occupational Therapy Visit Comments Patient Comments Pt agreed to shower. Patient/Caregiver To go home. Goals OT Pain Assessment Pain When Pain Assessed At Rest Pain Present Pain Present Denied Pain M4 OT- IP ADL's Start: 08/15/24 10:14 Freq: Status: Active Protocol: Document 08/16/24 15:43 [facility] (Rec: 08/16/24 17:05 [facility] Desktop) OT BIX-Sivm-Ohsxaby Comments OT Self-Feeding Not at meal time. Comments OT ADL-Grooming Comments OT Grooming Comments Not performed. OT ADL-Oral Care General Eval Oral Care Ability Independent Comments Oral Care Comments Able to do while standing at the sink with FWW. OT ADL-Dressing General Eval Lower Body Dressing Minimal Assistance,Moderate Assistance Ability Areas Needing Underpants/Brief,Socks Assistance Comments OT Dressing Comments Able to practice use of LB dressing equipment. Educated to dress the his LLE first and take out last. In addition went over hip flexor stretches so able to increased ease to do LB dressing. OT ADL-Toileting Comments OT Toileting Not observed. Comments OT ADL-Bathing Bathing Type Bathing Type Shower General Evaluation Bathing Ability Minimal Assistance Areas Needing Wash/Dry Upper Body,Wash/Dry Lower Extremities Assistance Comments OT Bathing Comments Pt needing assist for his back and feet. Suggested pt get tub bench, or since his space is very tight in the bathroom might be better to get a wide shower chair to be able to sit back on safely. In addition best to have a grab bar installed to help step into and out of the tub/shower for increased safety. M5 OT- IP IADL's Start: 08/15/24 10:14 Freq: Status: Active Protocol: Document 08/15/24 10:14 SHASTA (Rec: 08/15/24 10:24 SHASTA Desktop) OT-Instrumental Activities of Daily Living Deficits IADL Deficits Deficits Identified Home Safety Awareness Awareness of Need Good Awareness for Assistance at Home Ability to Problem Able to Problem Solve Solve Emergency Situations Home Safety Comments Pt will likely need assistance on d/c due to level of p ! in L LE. Pt does not want assistance. OT does not believe this is related to inability to problem solve situation. Medication Management Medication No Deficits Identified Management Money Management Money Management No Deficits Identified Meal Preparation Meal Preparation Caregiver Provides Supervision Meal Preparation dtr able to assist Comments Intern Brand Intern Brand Caregiver Provides Assist Intern Brand pt may need assist on d/c Comments Driving Driving Comments pt may need assist on d/c M6 OT- IP Functional Cognition Start: 08/15/24 10:14 Freq: Status: Active Protocol: Document 08/16/24 15:43 [facility] (Rec: 08/16/24 17:05 [facility] Desktop) Cognitive Factors Limiting Selfcare Function Cognitive Comments Cognitive Assessment Pt appears at baseline. Comments M7 OT- IP Mobility and Balance Start: 08/15/24 10:14 Freq: Status: Active Protocol: Document 08/16/24 15:43 [facility] (Rec: 08/16/24 17:05 [facility] Desktop) OT- Bed Mobility Assessment Supine to Sit Supine to Sit Assist Standby Assistance Scooting Scooting to Edge of Standby Assistance Bed OT-Transfer Assessment Sit to and From Stand Sit to and from Standby Assistance Stand Transfers Transfer Ability Standby Assistance,Contact Guard Assistance Technique Transfer Destination Bedside Commode,Shower Stall Devices Transfer Assistive Gait Belt,Front Wheeled Walker Devices Comments Mobility Comments Pt SBA with all mobility in the room except needing CGA to help step into the shower with the FWW. Pt has heavy use of his arms on the FWW. Pt agrees to get a fww. OT- Balance Assessment Sitting Balance and Reactions Static Sitting Normal Balance Ability Dynamic Sitting Good Balance Ability Standing Balance and Reactions Static Standing Good Balance Ability Dynamic Standing Good Balance Ability M8 OT- IP Objective Assessments Start: 08/15/24 10:14 Freq: Status: Active Protocol: Document 08/15/24 10:14 SHASTA (Rec: 08/15/24 10:24 SHASTA Desktop) OT Gross Range of Motion Upper Extremity Range of Motion Assessment Within Functional Limits ROM Impairments R shoulder ~140 degrees OT Strength Upper Extremity Strength Assessment Within Functional Limits Hand Inventory Specialist Manager Strength Hand Dominance Right Comments Strength Comments 5/5 MMT overall OT-Muscle Tone Assessment Muscle Tone WNL No OT Sensation Assessment Edema Edema Absent M9 OT- IP Assessment and Plan Start: 08/15/24 10:14 Freq: Status: Active Protocol: Document 08/16/24 15:43 [facility] (Rec: 08/16/24 17:05 [facility] Desktop) OT Summary Assessment and Plan Potential Rehabilitation Excellent Potential Analytic Complexity Low at Evaluation Summary OT Impairments Pain,Strength,Balance,Functional Mobility,Dressing, Toileting,Bathing,Toilet Transfers,Shower Transfers, Activity Tolerance Progress Towards Progressing Toward Goals Goals Assessment Summary Pt able to participate in showering today. Pt needing assist for LB dressing and for LE for showering needs. Pt was show gentle stretching to do to help with LB dressing needs. Pt to go home with assist when medically stable. Pt would benefit from home health and family to stay with him initially. Goals Grooming Goal Independent Dressing Goal Independent,Dentistry Teacher,Sock Aid Toileting Goal Independent Bathing Goal Independent,Grab Bars Toilet Transfer Goal Independent Shower Transfer Goal Independent,Shower Chair Days to Meet Goals 4 Frequency of Treatment Other frequency 5x/week Treatment Plan OT Treatment Plan ADL Training,Functional Mobility,Patient/Family Education,Discharge Planning Other Treatment practice LB dressing Recommendations and Next Treatment Focus Discharge Recommendations OT Discharge Home with Assistance,Home Health Recommendations Home Equipment Needs Sock aid, celery cutter, wider shower chair versus tub bench Transportation Needs Private Vehicle at Discharge
[2024-08-16] MEDS: ATORVASTATIN 20 MG TABLET 40 MG PO (16:56)
[2024-08-16] MEDS: HEPARIN 5,000 UNIT/ML VIAL 5000 UNIT SUBCUT (20:40)
[2024-08-16] MEDS: GABAPENTIN 100 MG CAPSULE PO (20:40)
[2024-08-16] MEDS: INSULIN GLARGINE 100 UNIT/ML 3ML PEN 36 UNIT SUBCUT (20:41)
[2024-08-17] VITALS (8 sets, daily range): BP systolic 144–167; BP diastolic 85–95; PULSE 65–97; RESP 16–18; TEMP 36.4–37.2; O2SAT 96–98
[2024-08-17 06:15] LABS: Add Manual Diff / Slide Review NO; Basophils Absolute Auto 100 /uL (0-100); Basophils Percent Auto 1.5 % (0-2); Eosinophils Absolute Auto 400 /uL (0-450); Eosinophils Percent Auto 5.1 % (2-4); Hematocrit 23.3 % (41-53); Hemoglobin 7.9 g/dL (13.5-17.5); Lymphocytes Absolute Auto 1100 /uL (1100-4500); Lymphocytes Percent Auto 16.4 % (25-40); Mean Corpuscular HGB Conc 33.9 % (30-36); Mean Corpuscular Hemoglobin 30.8 PG (26-34); Monocytes Absolute Auto 900 /uL (0-900); Monocytes Percent Auto 12.7 % (3-14); Neutrophils Absolute Auto 4400 /uL (1500-7000); Neutrophils Percent Auto 64.3 % (50-75); Platelet Count 198 X10^3/uL (150-400); Red Blood Cell Count 2.56 X10^6/uL (4.5-5.9); Red Cell Distribution Width 14.4 % (11.6-14.8); White Blood Cell Count 6.9 X10^3/uL (4.5-11.0)
[2024-08-17 06:21] LABS: BUN Creatinine Ratio 18.2 (6-22); Blood Urea Nitrogen 92 mg/dL (9-20); Calcium 8.9 mg/dL (8.4-10.2); Carbon Dioxide 11 mmol/L (22-32); Chloride 108 mmol/L (98-107); Estimated Glomerular Filt Rate 12 mL/min (>60); Glucose 85 mg/dL (70-99); HEMOLYSIS < 15 (0-50); Magnesium 1.5 mg/dL (1.6-2.3); Potassium 4.7 mmol/L (3.4-5.1); Sodium 133 mmol/L (137-145)
--- NOTE | 2024-08-17 09:21 | DI.RAD.S_ITS ---
PROCEDURE: XR CHEST 1V INDICATIONS: Pulmonary edema TECHNIQUE: One view of the chest was acquired. COMPARISON: [facility], CR, XR CHEST 1V, 08/13/2024, 9:14. FINDINGS: Rotated right anterior oblique. Increased moderate bilateral perihilar and lower lobe peribronchial thickening with patchy lower lobe opacities left greater than right, more than expected for subsegmental atelectasis. Bronchitis, bronchopneumonia, early findings of pneumonia, viral infection, or other process should be considered. Continued follow-up is needed. [id number] prominent felix, pulmonary vascular congestion and/or hilar lymph nodes mildly increased. Mildly enlarged cardiopericardial silhouette unchanged. Mild blunting left costophrenic angle, unchanged, small pleural effusion, atelectasis or other process. No pneumothorax. IMPRESSION: Increased peribronchial thickening and patchy opacities as discussed above. Continued follow-up is needed. Prominent felix, vascular congestion and/or hilar lymph nodes mildly increased. Remainder of the exam unchanged. If symptoms persist or worsen, CT chest could be performed. Dictated by: Terrance Antonio M.D. on 08/17/2024 at 11:48 Approved by: Terrance Antonio M.D. on 08/17/2024 at 11:52
[2024-08-17] MEDS: DOXYCYCLINE 100 MG in SODIUM CHLORIDE 0.9% 100 ML IV (10:01)
[2024-08-17] MEDS: AMLODIPINE 5 MG TABLET PO (10:03)
[2024-08-17] MEDS: carvediloL 12.5 MG TABLET PO ×2 (10:03→22:07)
[2024-08-17] MEDS: HEPARIN 5,000 UNIT/ML VIAL 5000 UNIT SUBCUT ×2 (10:03→22:08)
[2024-08-17] MEDS: ACETAMINOPHEN 325 MG TABLET 650 MG PO (10:04)
[2024-08-17] MEDS: SODIUM CHLORIDE 0.9% FLUSH 10 ML IV ×2 (10:04→22:00)
--- NOTE | 2024-08-17 11:45 | PT.IPTN ---
Current Diagnoses Cellulitis of left lower limb (08/12/24) Physical Therapy Treatment Note M2 PT-IP Current Condition Start: 08/13/24 12:15 Freq: NEEDED Status: Active Protocol: Document 08/13/24 10:15 AB (Rec: 08/13/24 12:28 AB Desktop) Physical Therapy Current Condition Current Condition Evaluation Date 08/13/24 Treatment Diagnosis LLE cellulitis; difficulty in walking Onset Date 08/12/24 M3 PT-IP Subjective Start: 08/13/24 12:15 Freq: NEEDED Status: Active Protocol: Document 08/17/24 12:40 KJ (Rec: 08/17/24 12:42 KJ Laptop) Subjective Physical Therapy Visit Type Type Treatment Note Visit Start Time 14:47 Visit Stop Time 14:56 Physical Therapy Visit Comments Patient Comments Pt states he hasn't been out of bed all day. He refused to get out of bed now due to IV running antibiotics. M4 PT-IP Mobility and Gait Start: 08/13/24 12:15 Freq: NEEDED Status: Active Protocol: Document 08/17/24 11:45 AB (Rec: 08/17/24 12:53 AB [id number]) PT-Bed Mobility Assessment Supine to Sit Supine to Sit Standby Assistance PT-Transfer Assessment Sit to and From Stand Sit to and from Contact Guard Assistance,1 Person Assistance,Use of Stand Upper Extremities Equipment Transfer Assistive Front Wheeled Walker Device Orthotic/Prosthetic No Devices or Brace: Transfers Transfer Destination Chair Transfer Technique ambulated Transfer Ability Level of Assist Contact Guard Assistance,Minimal Assistance,Moderate Assistance,1 Person Assistance,Use of Upper Extremities Comments Mobility Comments pt in bed and agreed to do PT. supine to sit SBA. sit to stand from EOB CGA and pt ambulated in room ~ 20 ft using FWW CGA to min A and requested to use the toilet. pt ambulated to the toilet using FWW CGA to min A and cues for safety. pt can be impulsive. pt was able to maintain standing using grab bar for support while using the toilet. pt ambulated towards the sink using FWW CGA to min A. able to maintain standing CGA while completing handwashing. pt agreed to walk more and completed ~ 40 ft using FWW CGA to mod A. pt also completed up/down step stool x 2 sets using FWW min A. (+) LOB while turning to sit on chair and requiring mod A. educated on safety. positioned pt on the chair. call light and table placed within reach. Gait Assessment Gait Gait Assistance Minimum Assistance Required: Distance (Feet) 40 Able to Maintain Yes Weight Bearing Status During Gait Assistive Devices Assistive Device Gait Belt,Front Wheeled Walker Orthotic/Prosthetic No Devices or Brace: Gait Deviations General Gait Pattern Ataxic,Decreased Stride Length,Decreased Feet Clearance Factors Limiting Gait Function Factors Limiting Decreased Activity Tolerance,Decreased Strength, Gait Function Difficulty Following Directions,Limited Range of Motion ,Pain,Poor Balance,Poor Safety Awareness M5 PT-IP Objective Assessments Start: 08/13/24 12:15 Freq: NEEDED Status: Active Protocol: Document 08/13/24 10:15 AB (Rec: 08/13/24 12:28 AB Desktop) Orientation Orientation/Cognition Level of Alertness Alert Orientation Name,Place,Situation Language Function No Deficits Noted Ability Safety Awareness Decreased Safety Awareness Memory Description No Deficits Noted Strength Lower Extremity Strength Assessment Left Impaired Hip 3+/5 Knee 4-/5 Sensation Assessment Sensation Sensation Numbness Description Comments Sensation Comments BLE slight numbness Muscle Tone Muscle Tone WNL Yes M6 PT-IP Treatment Start: 08/13/24 12:15 Freq: NEEDED Status: Active Protocol: Document 08/17/24 12:40 KJ (Rec: 08/17/24 12:42 KJ Laptop) Physical Therapy Treatment Exercises Exercises Ankle Pumps,Gluteal Sets,Quad Sets Education Education Provided Safety Other Treatments Other Treatment Stressed to pt the importance of mobility and being oob Performed M7 PT-IP Assessment and Plan Start: 08/13/24 12:15 Freq: NEEDED Status: Active Protocol: Document 08/17/24 12:40 KJ (Rec: 08/17/24 12:42 KJ Laptop) PT Summary Assessment and Plan Potential Rehabilitation Good Potential Status of Condition Evolving at Evaluation Frequency of Treatment Frequency Of Once a Day Treatment Treatment Plan Physical Therapy Bed Mobility Training,Transfer Training,Gait Training, Treatment Plan Therapeutic Exercise
[2024-08-17] MEDS: INSULIN LISPRO 100 UNIT/ML 3ML VIAL SUBCUT ×4 (12:23→17:15)
[2024-08-17] MEDS: CEFEPIME 1 GM in SODIUM CHLORIDE 0.9% 100 ML IV (13:41)
[2024-08-17] MEDS: HYDROCODONE/ACET 5/325 TABLET 1 TAB PO ×2 (13:41→22:05)
--- NOTE | 2024-08-17 14:22 | OT.IPNOTE ---
Attempted to see Jose at 2:22 p.m. He was not agreeable to treatment since he couldn't 'do it anyway due to the IV being in'. OT to re-attempt, schedule permitting.
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
--- NOTE | 2024-08-17 15:11 | DI.ECHO.S_ITS ---
[facility] : : [id number] : [place] : : [id number] : : Phone: [phone] Echocardiogram Report + + :Name: DEION CLARK Study Date: 08/18/2024 Height: 60 in : :[facility] ReadingLocation: Weight: 185 lb: : Gender: Male BSA: 1.8 m2 : :: 1955 Age: 68 yrs : :Reason For Study: CONGESTIVE HEART FAILURE : :Ordering Physician: TRICIA, : :JOAN Performed By: Claudette South : :Referring: JOAN CLARKE : + + Interpretation Summary The ejection fraction is estimated to be 55-60%. Diastolic function could not be accurately assessed due to unobtainable data. The left atrium is moderately dilated. The right ventricle is normal in size and function. There is mild mitral regurgitation. Pulmonary artery pressures cannot be estimated because of the lack of a measurable TR jet velocity. Compared to the prior study 12/10/2018, no significant change. Procedure: A two-dimensional transthoracic echocardiogram with color flow and Doppler was performed. The study quality was technically adequate. Comparison is made with the echocardiogram of 12/10/2018. The patient was in sinus rhythm with heart rates between 67-92 bpm during the exam. Left Ventricle: Left ventricular wall thickness is mildly increased. The ejection fraction is estimated to be 55-60%. Diastolic function could not be accurately assessed due to unobtainable data. Right Ventricle: The right ventricle is normal in size and function. Atria: The left atrium is moderately dilated. Right atrial size is normal. There is no Doppler evidence for an interatrial shunt. Mitral Valve: The mitral valve leaflets appear mildly thickened, but open well. There is mild mitral regurgitation. Aortic Valve: The aortic valve is trileaflet. The aortic valve is mildly calcified. There is no aortic valve stenosis. No aortic regurgitation is present. Tricuspid Valve: The tricuspid valve leaflets are thin and pliable. There is trace tricuspid regurgitation. Pulmonary artery pressures cannot be estimated because of the lack of a measurable TR jet velocity. Pulmonic Valve: The pulmonic valve is not well seen, but is grossly normal. There is a trace or physiologic amount of pulmonic regurgitation. Great Vessels: The aortic root is normal size. The ascending aorta is at the upper limits of normal in size. The inferior vena cava was not well visualized. Pericardium/ Pleura There is no pericardial effusion. There is no pleural effusion. MMode/2D Measurements & Calculations LVIDd: 4.8 cm LVOT diam: 2.1 cm LVIDs: 3.5 cm Ao root diam: 3.5 cm FS: 26.6 % asc Aorta Diam: 3.5 cm EPSS: 0.96 cm Ao Arch Diam (Prox Trans): 3.0 cm IVSd: 1.4 cm LVPWd: 1.3 cm LV reilly. diameter/BSA (cm/m^2): 2.7 LV sys. diameter/BSA (cm/m^2): 2.0 LA A2 area: 25.4 cm2 RA long axis: 5.0 cm LA A4 area: 18.2 cm2 RA area: 16.4 cm2 LA length (vol): 4.7 cm RA vol: 46.4 ml LA vol: 82.8 ml RA : 25.7 ml/m2 LA vol index: 45.8 ml/m2 RVD1 (basal): 3.4 cm TAPSE: 2.4 cm Doppler Measurements & Calculations Ao V2 max: 152.5 cm/sec LVOT Max Jeromy: 83.4 cm/sec Ao V2 mean: 99.8 cm/sec LV V1 max P.8 mmHg Ao max P.3 mmHg LV V1 VTI: 20.8 cm Ao mean P.5 mmHg JOSHUA(I,D): 2.2 cm2 Ao V2 VTI: 31.3 cm JOSHUA(V,D): 1.8 cm2 sev ratio: 0.66 JOSHUA indexed to BSA (cm^2/m^2): 1.2 MV E max jeromy: 74.3 cm/sec PA V2 max: 111.2 cm/sec MV A max jeromy: 71.6 cm/sec PA V2 mean: 74.0 cm/sec MV E/A: 1.0 PA mean P.5 mmHg Med Peak E' Jeromy: 5.5 cm/sec PA pr(Accel): 35.3 mmHg E/E' med: 13.4 Lat Peak E' Jeromy: 7.1 cm/sec E/E' lat: 10.4 E/e' average: 11.9 MV dec time: 0.26 sec SV(TAWANNA): 69.3 ml Reading Physician:11:38 AM
[2024-08-17] MEDS: LIDOCAINE 2% (GLYDO) 6 ML GEL TOP (15:35)
[2024-08-17] MEDS: ATORVASTATIN 20 MG TABLET 40 MG PO (17:14)
[2024-08-17] MEDS: GABAPENTIN 100 MG CAPSULE PO (22:00)
[2024-08-17] MEDS: DOXYCYCLINE HYCLATE 100 MG TABLET PO (22:00)
[2024-08-17] MEDS: INSULIN GLARGINE 100 UNIT/ML 3ML PEN 36 UNIT SUBCUT (22:00)
[2024-08-18] MEDS: PHENAZOPYRIDINE 100 MG TABLET PO ×4 (01:24→20:47)
[2024-08-18] MEDS: OXYBUTYNIN 5 MG TABLET PO ×2 (01:25→09:18)
[2024-08-18 04:05] VITALS: BP 162/89; PULSE 69; RESP 16; TEMP 36.7; O2SAT 97
[2024-08-18 05:19] LABS: BUN Creatinine Ratio 17.9 (6-22); Blood Urea Nitrogen 92 mg/dL (9-20); Calcium 8.8 mg/dL (8.4-10.2); Carbon Dioxide 11 mmol/L (22-32); Chloride 111 mmol/L (98-107); Estimated Glomerular Filt Rate 11 mL/min (>60); Glucose 82 mg/dL (70-99); HEMOLYSIS < 15 (0-50); Magnesium 1.5 mg/dL (1.6-2.3); Potassium 4.8 mmol/L (3.4-5.1); Sodium 135 mmol/L (137-145)
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
[2024-08-18] MEDS: INSULIN LISPRO 100 UNIT/ML 3ML VIAL SUBCUT ×4 (07:57→11:50)
[2024-08-18 08:00] VITALS: BP 170/93; PULSE 72; RESP 18; TEMP 36.6; O2SAT 96
[2024-08-18 09:19] VITALS: BP 170/93
[2024-08-18] MEDS: carvediloL 12.5 MG TABLET PO ×2 (09:19→20:46)
[2024-08-18] MEDS: HEPARIN 5,000 UNIT/ML VIAL 5000 UNIT SUBCUT ×2 (09:19→20:46)
[2024-08-18] MEDS: DOXYCYCLINE HYCLATE 100 MG TABLET PO ×2 (09:19→20:47)
[2024-08-18] MEDS: AMLODIPINE 5 MG TABLET PO (09:19)
[2024-08-18] MEDS: SODIUM CHLORIDE 0.9% FLUSH 10 ML IV ×2 (09:26→20:54)
--- NOTE | 2024-08-18 12:15 | OT.IPNOTE ---
Pt states not wanting to get up for lunch or do any self care needs at this time. Check on pt later.
--- NOTE | 2024-08-18 12:48 | OT.IP.TRT ---
Current Diagnoses Cellulitis of left lower limb (08/12/24) Occupational Therapy Treatment Note M2 OT-IP Current Condition Start: 08/15/24 10:14 Freq: Status: Active Protocol: Document 08/15/24 10:14 [facility] (Rec: 08/15/24 10:24 [facility] Desktop) Occupational Therapy Current Condition Current Condition Evaluation Date 08/15/24 Treatment Diagnosis L LE cellulitis Diagnosis Onset Date 08/12/24 M3 OT- IP Subjective and Pain Start: 08/15/24 10:14 Freq: Status: Active Protocol: Document 08/18/24 12:48 [facility] (Rec: 08/18/24 14:09 [facility] Desktop) OT- Subjective Occupational Therapy Visit Type Type Treatment Note Visit Start Time 12:48 Visit Stop Time 13:11 Occupational Therapy Visit Comments Patient Comments Pt agreed to get up to do oral care needs and wanting to try to walk to the sink without a device. Patient/Caregiver To go home. Goals OT Pain Assessment Pain When Pain Assessed At Rest Pain Present Pain Present Denied Pain M4 OT- IP ADL's Start: 08/15/24 10:14 Freq: Status: Active Protocol: Document 08/18/24 12:48 [facility] (Rec: 08/18/24 14:09 [facility] Desktop) OT ADL-Grooming General Evaluation Areas Needing Retrieving/Set-up of Grooming Items Assistance Comments OT Grooming Comments Pt able to do while standing the sink with FWW. OT ADL-Oral Care General Eval Oral Care Ability Independent Comments Oral Care Comments Able to do while standing at the sink with FWW. OT ADL-Dressing General Eval Lower Body Dressing Standby Assistance Ability Comments OT Dressing Comments Increased time to joanie/doff his socks, pt still open to getting LB dressing equipment to increase for dressing needs. OT ADL-Toileting Comments OT Toileting Pt has a álvarez. Comments M5 OT- IP IADL's Start: 08/15/24 10:14 Freq: Status: Active Protocol: Document 08/15/24 10:14 [facility] (Rec: 08/15/24 10:24 [facility] Desktop) OT-Instrumental Activities of Daily Living Deficits IADL Deficits Deficits Identified Home Safety Awareness Awareness of Need Good Awareness for Assistance at Home Ability to Problem Able to Problem Solve Solve Emergency Situations Home Safety Comments Pt will likely need assistance on d/c due to level of p ! in L LE. Pt does not want assistance. OT does not believe this is related to inability to problem solve situation. Medication Management Medication No Deficits Identified Management Money Management Money Management No Deficits Identified Meal Preparation Meal Preparation Caregiver Provides Supervision Meal Preparation dtr able to assist Comments Solar Manager Solar Manager Caregiver Provides Assist Solar Manager pt may need assist on d/c Comments Driving Driving Comments pt may need assist on d/c M6 OT- IP Functional Cognition Start: 08/15/24 10:14 Freq: Status: Active Protocol: Document 08/18/24 12:48 [facility] (Rec: 08/18/24 14:09 [facility] Desktop) Cognitive Factors Limiting Selfcare Function Cognitive Ability Safety Awareness Underestimates Need for Assistance Cognitive Comments Cognitive Assessment Pt still insistent for his needs and decreased safety Comments awareness. M7 OT- IP Mobility and Balance Start: 08/15/24 10:14 Freq: Status: Active Protocol: Document 08/18/24 12:48 [facility] (Rec: 08/18/24 14:09 [facility] Desktop) OT- Bed Mobility Assessment Supine to Sit Supine to Sit Assist Standby Assistance Scooting Scooting to Edge of Independent Bed OT-Transfer Assessment Sit to and From Stand Sit to and from Standby Assistance Stand Transfers Transfer Ability Standby Assistance,Contact Guard Assistance Technique Transfer Destination Bed Comments Mobility Comments CGA while trying to walk to the sink without a device, pt aware and opted to use the FWW. SBA with FWW. Suggested pt to get a FWW. Pt states his place maybe too small and therefore to trial a cane next session and able to let PT know. OT- Balance Assessment Sitting Balance and Reactions Static Sitting Normal Balance Ability Dynamic Sitting Good Balance Ability Standing Balance and Reactions Static Standing Good Balance Ability Dynamic Standing Fair Balance Ability M8 OT- IP Objective Assessments Start: 08/15/24 10:14 Freq: Status: Active Protocol: Document 08/15/24 10:14 [facility] (Rec: 08/15/24 10:24 [facility] Desktop) OT Gross Range of Motion Upper Extremity Range of Motion Assessment Within Functional Limits ROM Impairments R shoulder ~140 degrees OT Strength Upper Extremity Strength Assessment Within Functional Limits Hand Human Resource Advisor Strength Hand Dominance Right Comments Strength Comments 5/5 MMT overall OT-Muscle Tone Assessment Muscle Tone WNL No OT Sensation Assessment Edema Edema Absent M9 OT- IP Assessment and Plan Start: 08/15/24 10:14 Freq: Status: Active Protocol: Document 08/18/24 12:48 [facility] (Rec: 08/18/24 14:09 [facility] Desktop) OT Summary Assessment and Plan Potential Rehabilitation Good Potential Analytic Complexity Low at Evaluation Summary OT Impairments Pain,Strength,Balance,Functional Mobility,Dressing, Toileting,Bathing,Toilet Transfers,Shower Transfers, Activity Tolerance Progress Towards Progressing Toward Goals Goals Assessment Summary Pt able to joanie/doff his socks on his own today. Pt still unsteady on his feet and benefit from FWW. Pt to go home with assist when medically stable. Pt would benefit from ADL equipment and assist. Goals Grooming Goal Independent Dressing Goal Independent,Fish Dressing Machine Feeder,Sock Aid Toileting Goal Independent Bathing Goal Independent,Grab Bars Toilet Transfer Goal Independent Shower Transfer Goal Independent,Shower Chair Days to Meet Goals 3 Frequency of Treatment Other frequency 3x/week Treatment Plan OT Treatment Plan ADL Training,Functional Mobility,Patient/Family Education,Discharge Planning Discharge Recommendations OT Discharge Home with Assistance,Home Health Recommendations Home Equipment Needs Sock aid, hotel engineer, wider shower chair versus tub bench Transportation Needs Private Vehicle at Discharge
[2024-08-18] MEDS: CEFEPIME 1 GM in SODIUM CHLORIDE 0.9% 100 ML IV (14:52)
[2024-08-18] MEDS: HYDROCODONE/ACET 5/325 TABLET 1 TAB PO (14:53)
--- NOTE | 2024-08-18 15:16 | PT-IP ANOTE ---
Pt refused treatment when arrived at 1510pm. He states is in alot pain, was up in the chair for a while and on an IV right now, asked if could come back later. ACCOUNTS RECEIVABLE SUPERVISOR stated will let PT on the floor know to check back if has availability.
[2024-08-18] MEDS: MAGNESIUM SULFATE 2 GM/50 ML PIGGYBACK IV (15:52)
[2024-08-18 16:00] VITALS: BP 159/66; PULSE 70; RESP 16; TEMP 36.5; O2SAT 95
[2024-08-18] MEDS: ATORVASTATIN 20 MG TABLET 40 MG PO (17:49)
[2024-08-18 20:24] VITALS: BP 154/89; PULSE 70; RESP 17; TEMP 36.8; O2SAT 98
[2024-08-18 20:46] VITALS: BP 154/89; PULSE 70
[2024-08-18] MEDS: GABAPENTIN 100 MG CAPSULE PO (20:46)
[2024-08-18] MEDS: ONDANSETRON 4 MG/2 ML INJ IV (21:50)
[2024-08-19 05:43] VITALS: BP 154/93; PULSE 70; RESP 19; TEMP 37.1; O2SAT 97
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
[2024-08-19 08:00] VITALS: BP 145/90; PULSE 69; RESP 13; O2SAT 96
[2024-08-19] MEDS: ACETAMINOPHEN 325 MG TABLET 650 MG PO ×2 (08:45→23:38)
[2024-08-19] MEDS: carvediloL 12.5 MG TABLET PO ×2 (08:45→20:46)
[2024-08-19] MEDS: OXYBUTYNIN 5 MG TABLET PO (08:46)
[2024-08-19] MEDS: PHENAZOPYRIDINE 100 MG TABLET PO ×3 (08:46→20:45)
[2024-08-19] MEDS: AMLODIPINE 5 MG TABLET PO (08:46)
[2024-08-19] MEDS: DOXYCYCLINE HYCLATE 100 MG TABLET PO ×2 (08:46→20:46)
[2024-08-19] MEDS: SODIUM CHLORIDE 0.9% FLUSH 10 ML IV ×2 (08:47→20:49)
[2024-08-19] MEDS: INSULIN LISPRO 100 UNIT/ML 3ML VIAL SUBCUT ×4 (08:48→16:40)
[2024-08-19 09:14] LABS: Hematocrit 23.1 % (41-53); Hemoglobin 7.8 g/dL (13.5-17.5); Mean Corpuscular HGB Conc 33.7 % (30-36); Mean Corpuscular Hemoglobin 30.8 PG (26-34); Mean Corpuscular Volume 91.2 fL (80-100); Platelet Count 224 X10^3/uL (150-400); Red Blood Cell Count 2.53 X10^6/uL (4.5-5.9); Red Cell Distribution Width 14.3 % (11.6-14.8); White Blood Cell Count 7.1 X10^3/uL (4.5-11.0)
[2024-08-19 09:35] LABS: BUN Creatinine Ratio 19.1 (6-22); Blood Urea Nitrogen 90 mg/dL (9-20); Calcium 8.8 mg/dL (8.4-10.2); Carbon Dioxide 10 mmol/L (22-32); Chloride 109 mmol/L (98-107); Estimated Glomerular Filt Rate 13 mL/min (>60); Glucose 91 mg/dL (70-99); HEMOLYSIS < 15 (0-50); Potassium 5.4 mmol/L (3.4-5.1); Sodium 133 mmol/L (137-145)
--- NOTE | 2024-08-19 11:14 | OT.IP.TRT ---
Current Diagnoses Cellulitis of left lower limb (08/12/24) Occupational Therapy Treatment Note M2 OT-IP Current Condition Start: 08/15/24 10:14 Freq: Status: Active Protocol: Document 08/15/24 10:14 [facility] (Rec: 08/15/24 10:24 [facility] Desktop) Occupational Therapy Current Condition Current Condition Evaluation Date 08/15/24 Treatment Diagnosis L LE cellulitis Diagnosis Onset Date 08/12/24 M3 OT- IP Subjective and Pain Start: 08/15/24 10:14 Freq: Status: Active Protocol: Document 08/19/24 12:38 [facility] (Rec: 08/19/24 12:46 [facility] Desktop) OT- Subjective Occupational Therapy Visit Type Type Treatment Note Visit Start Time 10:45 Visit Stop Time 11:14 Occupational Therapy Visit Comments Patient Comments Pt agreed to try use of 4ww and SPC and wanting to do oral care needs. Patient/Caregiver TO go home. Goals OT Pain Assessment Pain When Pain Assessed At Rest Pain Present Pain Present Denied Pain M4 OT- IP ADL's Start: 08/15/24 10:14 Freq: Status: Active Protocol: Document 08/19/24 12:38 [facility] (Rec: 08/19/24 12:46 [facility] Desktop) OT [id number] Comments OT Self-Feeding Not at meal time. Comments OT ADL-Grooming General Evaluation Grooming Ability Independent Comments OT Grooming Comments Able to do while standing at the sink with 4ww. OT ADL-Oral Care General Eval Oral Care Ability Independent OT ADL-Dressing General Eval Lower Body Dressing Standby Assistance Ability Comments OT Dressing Comments Pt able to joanie/doff socks with increased time. OT ADL-Toileting Comments OT Toileting Pt has a álvarez. Comments OT ADL-Bathing Comments OT Bathing Comments Pt feels that he will have no issues at home and states to use his shower chair. M5 OT- IP IADL's Start: 08/15/24 10:14 Freq: Status: Active Protocol: Document 08/15/24 10:14 [facility] (Rec: 08/15/24 10:24 [facility] Desktop) OT-Instrumental Activities of Daily Living Deficits IADL Deficits Deficits Identified Home Safety Awareness Awareness of Need Good Awareness for Assistance at Home Ability to Problem Able to Problem Solve Solve Emergency Situations Home Safety Comments Pt will likely need assistance on d/c due to level of p ! in L LE. Pt does not want assistance. OT does not believe this is related to inability to problem solve situation. Medication Management Medication No Deficits Identified Management Money Management Money Management No Deficits Identified Meal Preparation Meal Preparation Caregiver Provides Supervision Meal Preparation dtr able to assist Comments Brim Edge Trimmer Brim Edge Trimmer Caregiver Provides Assist Brim Edge Trimmer pt may need assist on d/c Comments Driving Driving Comments pt may need assist on d/c M6 OT- IP Functional Cognition Start: 08/15/24 10:14 Freq: Status: Active Protocol: Document 08/19/24 12:38 [facility] (Rec: 08/19/24 12:46 [facility] Desktop) Cognitive Factors Limiting Selfcare Function Cognitive Comments Cognitive Assessment Pt a bit safer and realizes not safe on his feet at Comments this time and thinking of use of SPC and possibly 4ww for outside. M7 OT- IP Mobility and Balance Start: 08/15/24 10:14 Freq: Status: Active Protocol: Document 08/19/24 12:38 [facility] (Rec: 08/19/24 12:46 [facility] Desktop) OT- Bed Mobility Assessment Supine to Sit Supine to Sit Assist Independent Scooting Scooting to Edge of Independent Bed OT-Transfer Assessment Sit to and From Stand Sit to and from Standby Assistance Stand Transfers Transfer Ability Standby Assistance,Contact Guard Assistance Technique Transfer Destination Bed Comments Mobility Comments CGA to hold 4ww in place while sitting and standing. The 4ww is unsteady and having to use the brakes for safety while walking. AT this time the fww is safer for the pt. Pt occasional cga with SPC. Pt will continue from practicing devices for mobility during ADL needs. OT- Balance Assessment Sitting Balance and Reactions Static Sitting Normal Balance Ability Dynamic Sitting Good Balance Ability Standing Balance and Reactions Static Standing Good Balance Ability Dynamic Standing Fair Balance Ability M8 OT- IP Objective Assessments Start: 08/15/24 10:14 Freq: Status: Active Protocol: Document 08/15/24 10:14 [facility] (Rec: 08/15/24 10:24 [facility] Desktop) OT Gross Range of Motion Upper Extremity Range of Motion Assessment Within Functional Limits ROM Impairments R shoulder ~140 degrees OT Strength Upper Extremity Strength Assessment Within Functional Limits Hand Feather Curling Machine Operator Strength Hand Dominance Right Comments Strength Comments 5/5 MMT overall OT-Muscle Tone Assessment Muscle Tone WNL No OT Sensation Assessment Edema Edema Absent M9 OT- IP Assessment and Plan Start: 08/15/24 10:14 Freq: Status: Active Protocol: Document 08/19/24 12:38 [facility] (Rec: 08/19/24 12:46 [facility] Desktop) OT Summary Assessment and Plan Potential Rehabilitation Good Potential Analytic Complexity Low at Evaluation Summary OT Impairments Pain,Strength,Balance,Functional Mobility,Dressing, Toileting,Bathing,Toilet Transfers,Shower Transfers, Activity Tolerance Progress Towards Progressing Toward Goals Goals Assessment Summary Pt able to trial 4ww and SPC in the room when walking to the sink for ADL needs. Pt to go home with assist when medically stable. Goals Grooming Goal Independent Dressing Goal Independent,Dobby Looms Pegger,Sock Aid Toileting Goal Independent Bathing Goal Independent,Grab Bars Toilet Transfer Goal Independent Shower Transfer Goal Independent,Shower Chair Days to Meet Goals 3 Frequency of Treatment Other frequency 5x/week Treatment Plan OT Treatment Plan ADL Training,Functional Mobility,Patient/Family Education,Discharge Planning Discharge Recommendations OT Discharge Home with Assistance,Home Health Recommendations Home Equipment Needs Sock aid, residential roofer, wider shower chair versus tub bench Transportation Needs Private Vehicle at Discharge
[2024-08-19 13:10] LABS: MRSA (Nasal) PCR NOT DETECTED (Not Detect)
--- NOTE | 2024-08-19 13:24 | CM.DPC ---
DCP Cont Reviewed chart. Patient discussed in multidisciplinary rounds. left lower extremity cellulitis- Slowly improving. HAIM 08/21. Patient needs nephrology follow up, Dr Norman working on this. Plan remains discharge home. Patient is a good candidate for HH referral if he is agreeable. CM team following clinical course closely. MCKAYLA
[2024-08-19] MEDS: CEFEPIME 1 GM in SODIUM CHLORIDE 0.9% 100 ML IV (14:27)
--- NOTE | 2024-08-19 16:15 | PT.IPTN ---
Current Diagnoses Cellulitis of left lower limb (08/12/24) Physical Therapy Treatment Note M2 PT-IP Current Condition Start: 08/13/24 12:15 Freq: NEEDED Status: Active Protocol: Document 08/13/24 10:15 [facility] (Rec: 08/13/24 12:28 [facility] Desktop) Physical Therapy Current Condition Current Condition Evaluation Date 08/13/24 Treatment Diagnosis LLE cellulitis; difficulty in walking Onset Date 08/12/24 M3 PT-IP Subjective Start: 08/13/24 12:15 Freq: NEEDED Status: Active Protocol: Document 08/19/24 16:15 [facility] (Rec: 08/19/24 17:49 [facility] [id number]) Subjective Physical Therapy Visit Type Type Treatment Note Visit Start Time 16:15 Visit Stop Time 16:30 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 Physical Therapy Visit Comments Patient Comments agreeable to do PT M4 PT-IP Mobility and Gait Start: 08/13/24 12:15 Freq: NEEDED Status: Active Protocol: Document 08/19/24 16:15 [facility] (Rec: 08/19/24 17:49 [facility] [id number]) PT-Bed Mobility Assessment Supine to Sit Supine to Sit Standby Assistance Sit to Supine Sit to Supine Standby Assistance PT-Transfer Assessment Sit to and From Stand Sit to and from Contact Guard Assistance,1 Person Assistance,Use of Stand Upper Extremities Equipment Transfer Assistive Bed Rail,Front Wheeled Walker Device Orthotic/Prosthetic No Devices or Brace: Comments Mobility Comments pt in bed and agreed to do PT. supine to sit SBA. sit to stand CGA and ambulated in room 45 ft using FWW CGA . cued for safety. pt stand by the sink using FWW for support and wants to brush his teeth. pt was able to maintain standing SBA to CGA while brushing his teeth. pt requested to go back to bed. ambulated to the bed using FWW CGA. sit to supine SBA. positioned pt in bed . call light and table placed within reach. Gait Assessment Gait Gait Assistance Contact Guard Assist,1 Person Assist Required: Assistive Devices Assistive Device Gait Belt,Front Wheeled Walker Orthotic/Prosthetic No Devices or Brace: Gait Deviations General Gait Pattern Antalgic,Ataxic,Decreased Stride Length,Decreased Feet Clearance Factors Limiting Gait Function Factors Limiting Decreased Activity Tolerance,Decreased Strength, Gait Function Difficulty Following Directions,Poor Balance,Poor Safety Awareness M5 PT-IP Objective Assessments Start: 08/13/24 12:15 Freq: NEEDED Status: Active Protocol: Document 08/13/24 10:15 [facility] (Rec: 08/13/24 12:28 [facility] Desktop) Orientation Orientation/Cognition Level of Alertness Alert Orientation Name,Place,Situation Language Function No Deficits Noted Ability Safety Awareness Decreased Safety Awareness Memory Description No Deficits Noted Strength Lower Extremity Strength Assessment Left Impaired Hip 3+/5 Knee 4-/5 Sensation Assessment Sensation Sensation Numbness Description Comments Sensation Comments BLE slight numbness Muscle Tone Muscle Tone WNL Yes M6 PT-IP Treatment Start: 08/13/24 12:15 Freq: NEEDED Status: Active Protocol: Document 08/19/24 16:15 [facility] (Rec: 08/19/24 17:49 [facility] [id number]) Physical Therapy Treatment Education Education Provided Safety M7 PT-IP Assessment and Plan Start: 08/13/24 12:15 Freq: NEEDED Status: Active Protocol: Document 08/19/24 16:15 [facility] (Rec: 08/19/24 17:49 [facility] [id number]) PT Summary Assessment and Plan Potential Rehabilitation Fair Potential Summary Impairments Pain,ROM,Strength,Balance,Coordination,Sensation,Tone, Cognition,Bed Mobility,Transfers,Gait,Activity Tolerance Progress Towards Slow Progress due to Medical Issues,Slow Progress due Goals to Activity Tolerance Assessment Summary pt requiring CGA with mobility using FWW. pt lives alone and will require assistance at home. d/c plan depending on progress but at this time will benefit from SNF rehab. will continue to assess. Goals Bed Mobility Goal Independent Transfer Goal Independent,Front Wheeled Walker Gait Goal Independent,Front Wheel Walker Gait Distance 100 Other Goals up/down 4 steps bilateral rails SBA Days to Meet Goals 10 Frequency of Treatment Frequency Of Once a Day Treatment Treatment Plan Physical Therapy Bed Mobility Training,Transfer Training,Gait Training, Treatment Plan Therapeutic Exercise,Balance Retraining,Discharge Planning,Hot or Cold Pack,Neuromuscular Re-ed, Coordination Retraining Recommendations To Nursing Amount of Assist 1 Person Assist Needed Discharge Recommendations PT Discharge SNF Rehab Recommendations Transportation Needs Private Vehicle at Discharge - PT assist 1
[2024-08-19 17:00] VITALS: BP 168/94; PULSE 71; RESP 12; TEMP 36.9; O2SAT 97
[2024-08-19 20:00] VITALS: BP 171/92; PULSE 74; RESP 18; TEMP 36.9; O2SAT 95
[2024-08-19] MEDS: ATORVASTATIN 20 MG TABLET 40 MG PO (20:44)
[2024-08-19 20:46] VITALS: BP 171/92; PULSE 74
[2024-08-19] MEDS: GABAPENTIN 100 MG CAPSULE PO (20:46)
[2024-08-19] MEDS: HYDROCODONE/ACET 5/325 TABLET 1 TAB PO (20:46)
[2024-08-19] MEDS: HEPARIN 5,000 UNIT/ML VIAL 5000 UNIT SUBCUT (20:47)
[2024-08-19] MEDS: INSULIN GLARGINE 100 UNIT/ML 3ML PEN 32 UNIT SUBCUT (21:02)
[2024-08-19 21:55] VITALS: BP 170/87; PULSE 74; RESP 16; O2SAT 97
[2024-08-20 01:32] VITALS: BP 156/90; PULSE 69; RESP 18; TEMP 37.2; O2SAT 97
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
[2024-08-20 08:48] LABS: Hematocrit 23.9 % (41-53); Hemoglobin 8.1 g/dL (13.5-17.5); Mean Corpuscular Volume 91.2 fL (80-100); Platelet Count 238 X10^3/uL (150-400); Red Blood Cell Count 2.62 X10^6/uL (4.5-5.9); Red Cell Distribution Width 14.2 % (11.6-14.8); White Blood Cell Count 6.9 X10^3/uL (4.5-11.0)
[2024-08-20] MEDS: INSULIN LISPRO 100 UNIT/ML 3ML VIAL SUBCUT ×2 (08:49→12:48)
[2024-08-20] MEDS: OXYBUTYNIN 5 MG TABLET PO (08:50)
[2024-08-20] MEDS: PHENAZOPYRIDINE 100 MG TABLET PO ×2 (08:50→16:05)
[2024-08-20] MEDS: carvediloL 12.5 MG TABLET PO (08:50)
[2024-08-20] MEDS: AMLODIPINE 5 MG TABLET PO (08:50)
[2024-08-20] MEDS: DOXYCYCLINE HYCLATE 100 MG TABLET PO (08:50)
[2024-08-20] MEDS: SODIUM CHLORIDE 0.9% FLUSH 10 ML IV (08:51)
[2024-08-20 09:00] VITALS: BP 148/97; PULSE 63; RESP 18; TEMP 37.1; O2SAT 95
[2024-08-20 09:12] LABS: Blood Urea Nitrogen 93 mg/dL (9-20); Carbon Dioxide 10 mmol/L (22-32); Chloride 110 mmol/L (98-107); Estimated Glomerular Filt Rate 12 mL/min (>60); Glucose 91 mg/dL (70-99); HEMOLYSIS < 15 (0-50); Potassium 5.2 mmol/L (3.4-5.1); Sodium 135 mmol/L (137-145)
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
--- NOTE | 2024-08-20 11:24 | PC.NURSE ---
Day shift: Pt's LLE with dry skin with scales. Has been open to air here and leg and foot placed on chux pad. Minimal drainage. Keep LLE and foot area clean and dry. Pt is able to ambulate with no complaints of pain.
--- NOTE | 2024-08-20 11:35 | CM.DPNOTE ---
DC Note Patient has been discharged. Provider asking for HH RN for wound care. Met w/patient who agrees to HH, no agency preference. Emailed referral to [facility] based on calendar rotation ([facility]). HH RN (wound care) and PT. Awaiting confirmation. Emailed FS, H+P, DC Summary, PT Note, F2F, HH order and Bedside RN note re wound. Plan: Discharge home w/[facility] RN/PT , daughter to transport. JW
[2024-08-20] MEDS: ACETAMINOPHEN 325 MG TABLET 650 MG PO (12:54)
--- NOTE | 2024-08-20 13:28 | PC.NURSE ---
Day shift: Mariee removed at approx 1300. Discussed leg bag and going home with the Mariee and Pt stated that he was able to void prior to the Mariee. This proposal writer talked with Dr Norman and it was decided to d/c the Mariee. Pt did really want the Mariee removed. Plan is to void prior to discharge and to get one more dose of IV antibiotic.
[2024-08-20] MEDS: CEFEPIME 1 GM in SODIUM CHLORIDE 0.9% 100 ML IV (13:39)
--- NOTE | 2024-08-20 15:57 | PC.NURSE ---
Day shift: Pt was able to void 150 mls clear orange urine after Gates removal. Checked with Dr Norman and it is all clear to discharge home at this time.
--- NOTE | 2024-08-20 16:20 | PC.NURSE ---
Day shift: Paperwork signed and all questions answered. Pt has all personal belongings. scripts sent to Pt's pharm electronic. Daughter in room for teachings. She will be driving him home. Encouraged Pt to make f/u appointment with PCP and urology. Left unit at approx 1625 via WC. Linda MAYS took him.
== END 2024-08-20 16:22 | disposition home health service (06) | DRG 872 ==
LOC: ED 18:15 → AC 20:22
PROVIDERS: Hospitalist; Internal Medicine; Student in an Organized Health Care Education/Training Program; Admitting Provider Internal Medicine; Emergency Provider Emergency Medicine; PCP Family Medicine; Referring Provider Emergency Medicine; Visit Provider Internal Medicine
DX: A41.9 Sepsis, unspecified organism (principal); L03.116 Cellulitis of left lower limb; N17.9 Acute kidney failure, unspecified; I50.22 Chronic systolic (congestive) heart failure; N18.5 Chronic kidney disease, stage 5; I13.2 Hypertensive heart and chronic kidney disease with heart failure and with stage 5 chronic kidney disease, or end stage renal disease; E78.5 Hyperlipidemia, unspecified; E11.22 Type 2 diabetes mellitus with diabetic chronic kidney disease; I25.10 Atherosclerotic heart disease of native coronary artery without angina pectoris; D63.1 Anemia in chronic kidney disease; Z79.4 Long term (current) use of insulin
CPT/HCPCS: 36415; 36430; 71045; 73700; 76770; 80048; 80053; 80202; 81015; 82962; 83036; 83605; 83690; 83735; 84145; 85025; 85027; 85610; 85651; 85730; 86140; 86850; 86900; 86901; 87040; 87797; 93306; 93971; 96365; 96367; 96368; 96372; 96375; 96376; 97116; 97162; 97165; 97530; 97535; 99284; 99285; P9016; J0692; J1644; J1815; J1938; J2270; J2405; J2543; J3475

== ENCOUNTER 2024-08-30 13:05 | Emergency (ER) | payer BC, SELFPAY ==
[2024-08-12 21:17] VITALS: BMI 27.3
[2024-08-30] VITALS (16 sets, daily range): BP systolic 122–165; BP diastolic 59–83; PULSE 67–75; RESP 15–21; TEMP 36.8; O2SAT 94–100; BMI 31.0
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
[2024-08-30 19:49] LABS: Add Manual Diff / Slide Review NO; Basophils Absolute Auto 100 /uL (0-100); Basophils Percent Auto 0.9 % (0-2); Eosinophils Absolute Auto 300 /uL (0-450); Eosinophils Percent Auto 3.8 % (2-4); Hematocrit 22.3 % (41-53); Hemoglobin 7.5 g/dL (13.5-17.5); Lymphocytes Absolute Auto 1200 /uL (1100-4500); Lymphocytes Percent Auto 15.6 % (25-40); Mean Corpuscular HGB Conc 33.5 % (30-36); Mean Corpuscular Hemoglobin 30.9 PG (26-34); Mean Corpuscular Volume 92.3 fL (80-100); Monocytes Absolute Auto 700 /uL (0-900); Monocytes Percent Auto 9.5 % (3-14); Neutrophils Absolute Auto 5200 /uL (1500-7000); Neutrophils Percent Auto 70.2 % (50-75); Platelet Count 214 X10^3/uL (150-400); Red Blood Cell Count 2.42 X10^6/uL (4.5-5.9); Red Cell Distribution Width 15.3 % (11.6-14.8); White Blood Cell Count 7.4 X10^3/uL (4.5-11.0)
[2024-08-30 19:53] LABS: Alanine Aminotransferase 64 IU/L (<50); Albumin 3.9 g/dL (3.5-5.0); Albumin Globulin Ratio 0.9 (1.0-2.8); Alkaline Phosphatase 100 U/L (38-126); Aspartate Aminotransferase 90 IU/L (17-59); Bilirubin Total 0.9 mg/dL (0.2-1.3); Calcium 8.9 mg/dL (8.4-10.2); Chloride 112 mmol/L (98-107); Estimated Glomerular Filt Rate 7 mL/min (>60); Globulin 4.3 g/dL (1.7-4.1); Glucose 94 mg/dL (70-99); Sodium 139 mmol/L (137-145); Total Protein 8.2 g/dL (6.3-8.2)
[2024-08-30 20:14] LABS: BUN Creatinine Ratio 16.4 (6-22); HEMOLYSIS 90 (0-50); Potassium 5.5 mmol/L (3.4-5.1)
[2024-08-30 20:17] LABS: Blood Urea Nitrogen 124 mg/dL (9-20); Carbon Dioxide 9 mmol/L (22-32)
[2024-08-30] MEDS: FUROSEMIDE 80 MG in SODIUM CHLORIDE 0.9% 50 ML 116 MG IV (22:32)
[2024-08-30] MEDS: INSULIN REGULAR 100 UNIT/ML 3 ML VIAL 10 UNIT IV (22:33)
[2024-08-30] MEDS: SODIUM CHLORIDE 0.9% 1,000 ML 1000 ML IV (22:33)
[2024-08-30] MEDS: LIDOCAINE 2% (GLYDO) 6 ML GEL TOP (22:33)
[2024-08-30] MEDS: DEXTROSE 50 % IN WATER 25 GM/50 ML SYRINGE IV (22:35)
--- NOTE | 2024-08-30 23:40 | EKG_ITS ---
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
[2024-08-31] VITALS (8 sets, daily range): BP systolic 137–151; BP diastolic 63–70; PULSE 69–72; RESP 12–21; O2SAT 97–98
[2024-08-31 00:16] LABS: Alanine Aminotransferase 58 IU/L (<50); Albumin 3.6 g/dL (3.5-5.0); Albumin Globulin Ratio 0.9 (1.0-2.8); Alkaline Phosphatase 112 U/L (38-126); Aspartate Aminotransferase 46 IU/L (17-59); Bilirubin Total 0.6 mg/dL (0.2-1.3); Calcium 8.7 mg/dL (8.4-10.2); Chloride 116 mmol/L (98-107); Estimated Glomerular Filt Rate 7 mL/min (>60); Globulin 3.9 g/dL (1.7-4.1); Glucose 100 mg/dL (70-99); HEMOLYSIS < 15 (0-50); Potassium 4.4 mmol/L (3.4-5.1); Sodium 140 mmol/L (137-145); Total Protein 7.5 g/dL (6.3-8.2)
[2024-08-31 00:23] LABS: BUN Creatinine Ratio 17.1 (6-22)
[2024-08-31 00:25] LABS: Blood Urea Nitrogen 126 mg/dL (9-20); Carbon Dioxide 7 mmol/L (22-32)
[2024-08-31] MEDS: SODIUM ZIRCONIUM CYCLOSILICATE 10 GM POWD.PACK PO (00:25)
--- NOTE | 2024-08-31 03:08 | PC.NURSE ---
Pt given 2 applesauce cups at this time.
--- NOTE | 2024-08-31 04:04 | PC.NURSE ---
Report given to Belen MARTINEZ at [facility]
== END 2024-08-31 04:00 | disposition short-term general hospital (02) ==
PROVIDERS: Emergency Medicine; Emergency Provider Emergency Medicine; PCP Family Medicine
DX: E11.9 Type 2 diabetes mellitus without complications (principal); Z79.4 Long term (current) use of insulin; E87.5 Hyperkalemia; I50.9 Heart failure, unspecified; N17.9 Acute kidney failure, unspecified; I10 Essential (primary) hypertension; N18.4 Chronic kidney disease, stage 4 (severe)
CPT/HCPCS: 36415; 51798; 80053; 85025; 93005; 93010; 96365; 96375; 99285; J1938

== ENCOUNTER → 2024-11-09 10:49 | Outpatient (CLI) | payer BC, SELFPAY ==
[2023-07-12 19:02] VITALS: BMI 28.8
[2024-08-12 21:17] VITALS: BMI 27.3
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
== END ==
PROVIDERS: PCP Family Medicine; Referring Provider Family Medicine
DX: E11.65 Type 2 diabetes mellitus with hyperglycemia (principal); Z71.3 Dietary counseling and surveillance; Z79.4 Long term (current) use of insulin
CPT/HCPCS: 97803

== ENCOUNTER 2024-12-15 23:25 | Emergency (ER) | payer BC, SELFPAY ==
[2024-08-12 21:17] VITALS: BMI 27.3
[2024-12-15 23:50] VITALS: BP 190/90; PULSE 65; RESP 16; TEMP 36.8; O2SAT 99; BMI 25.8
[2024-12-16] MEDS: FLUORESCEIN 1 MG STRIP EYE-LEFT (02:00)
[2024-12-16] MEDS: PROPARACAINE 0.5% OPHTH SOL 1 DROPS EYE-LEFT (02:01)
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
[2024-12-16] MEDS: OFLOXACIN 0.3% OPHTH PREPACK 1 BOTTLE MISC (02:17)
[2024-12-16 02:23] VITALS: BP 195/91; PULSE 69; RESP 16; O2SAT 98
== END 2024-12-16 02:24 | disposition home or self-care (01) ==
PROVIDERS: Emergency Provider Emergency Medicine; PCP Family Medicine
DX: H16.002 Unspecified corneal ulcer, left eye (principal); E11.9 Type 2 diabetes mellitus without complications; I50.9 Heart failure, unspecified
CPT/HCPCS: 99282

== ENCOUNTER → 2025-01-10 10:59 | Outpatient (CLI) | payer BC, SELFPAY ==
[2024-08-12 21:17] VITALS: BMI 27.3
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
== END ==
LOC: DIET 11:00
PROVIDERS: PCP Family Medicine; Referring Provider Family Medicine
DX: E11.9 Type 2 diabetes mellitus without complications (principal); Z71.3 Dietary counseling and surveillance; Z79.4 Long term (current) use of insulin
CPT/HCPCS: 97803